=== PATIENT | male | born 1935 | race Caucasian/White ===

== ENCOUNTER → 2018-01-10 07:03 | Outpatient (CLI) | payer MEDICARE, SELFPAY ==
[2018-01-10 13:38] LABS: Basophils # 0.1 K/mm3 (0-0.2); Basophils % 0.6 % (0.1-2.0); Eosinophils # 0.2 K/mm3 (0.0-0.4); Eosinophils % 2.9 % (0.1-12.0); Hemoglobin 15.8 g/dL (14.1-18.0); Lymphocytes # 2.8 K/mm3 (0.7-4.5); Lymphocytes % 35.8 % (10-50); Mean Corpuscular HGB Conc 32.3 g/dL (31.8-35.4); Mean Corpuscular Hemoglobin 30.9 pg (27.0-31.2); Mean Corpuscular Volume 95.7 fl (80-94); Mean Platelet Volume 7.3 fl (7.4-10.4); Monocytes # 0.6 K/mm3 (0.1-1.0); Monocytes % 7.1 % (1.7-9.3); Neutrophils # 4.2 K/mm3 (1.8-7.8); Neutrophils % 53.6 % (37.0-80.0); Platelet Count 265 K/mm3 (142-424); Red Blood Count 5.12 M/mm3 (4.60-6.20); Red Cell Distribution Width 13.5 % (11.5-17.5); White Blood Count 7.8 K/mm3 (4.8-10.8)
[2018-01-10 13:52] LABS: Alanine Aminotransferase 28 U/L (12-78); Albumin Level 3.6 gm/dL (3.4-5.0); Albumin/Globulin Ratio 1.1 (1.1-1.8); Alkaline Phosphatase 85 U/L (46-116); Anion Gap 13.1 mEq/L (5-15); Aspartate Amino Transferase 13 U/L (15-37); Bilirubin,Total 0.5 mg/dL (0.2-1.0); Blood Urea Nitrogen 20 mg/dL (7-18); Calcium 8.5 mg/dL (8.5-10.1); Carbon Dioxide 26 mmol/L (21.0-32.0); Chloride 106 mmol/L (98-107); Chol/HDL Ratio 4.1 (1-3.5); Cholesterol 159 mg/dL (140-200); Creatinine,Serum 1.32 mg/dL (0.70-1.30); Estimated Glomerular Filt Rate 52 ml/min (>60); GFR (African American) 63 ML/MIN (>60); Globulin 3.3 gm/dl (1.3-3.2); Glucose 123 mg/dL (74-106); HDL Cholesterol 39 mg/dL (27-67); LDL Cholesterol 92 mg/dL (0-130); Potassium 4.1 mmoL/L (3.5-5.1); Prostate Specific Ag Screen 2.7 ng/mL (0.0-4.0); Sodium 141 mmol/L (136-145); Thyroid Stimulating Hormone 4.22 uIU/ml (0.358-3.740); Total Protein,Serum 6.9 gm/dL (6.4-8.2); Triglycerides 140 mg/dL (30-200); VLDL Cholesterol 28 mg/dL (0-40)
== END ==
PROVIDERS: PCP Internal Medicine Adolescent Medicine; Visit Provider Nurse Practitioner Family
DX: I25.10 Atherosclerotic heart disease of native coronary artery without angina pectoris (principal); E78.49 Other hyperlipidemia; N18.3 Chronic kidney disease, stage 3 (moderate); E03.8 Other specified hypothyroidism; Z12.5 Encounter for screening for malignant neoplasm of prostate
CPT/HCPCS: 36415; 80053; 80061; 84443; 85025; G0103

== ENCOUNTER → 2018-08-16 07:02 | Outpatient (CLI) | payer MEDICARE, SELFPAY ==
[2018-08-16 13:56] LABS: Anion Gap 13.1 mEq/L (5-15); Blood Urea Nitrogen 26 mg/dL (7-18); Calcium 8.8 mg/dL (8.5-10.1); Carbon Dioxide 28 mmol/L (21.0-32.0); Chloride 105 mmol/L (98-107); Estimated Glomerular Filt Rate 49 ml/min (>60); GFR (African American) 59 ML/MIN (>60); Glucose 114 mg/dL (74-106); Potassium 4.1 mmoL/L (3.5-5.1); Sodium 142 mmol/L (136-145)
== END ==
PROVIDERS: PCP Internal Medicine Adolescent Medicine; Visit Provider Internal Medicine Adolescent Medicine
DX: R79.89 Other specified abnormal findings of blood chemistry (principal)
CPT/HCPCS: 36415; 80048

== ENCOUNTER 2018-09-01 10:17 | Observation (INO) ==
--- NOTE | 2018-09-01 15:43 | Cardiology Report ---
PROCEDURE: 2-D M-mode and color Doppler study INDICATIONS FOR THE TEST: Chest pain COPD Heart Murmur Tobacco Smoking Palpitations+ Fatigue Syncope Edema Hypertension+Diabetes Mellitus Rheumatic Fever SOB [place] Obesity Hyperlipidemia+ Family History HD Additional History Arrhythmia noted on event monitor PATIENT INFORMATION HEIGHT: 68 WEIGHT: 203 GENDER: Male B/P: 118/76 2-D/M-MODE INTERPRETATION: 2-D MEASUREMENTS OBSERVED VALUES IN CMS Right Ventricular Dimension (RVDd) 2.2 Interventricular Septum (Thickness)(IVsd) 0.9 Left Ventricular Internal Dimensions(LVIDd) 5.0 Left Ventricular Posterior Wall (Thickness)(LVPWd) 0.9 Aortic Root 3.1 Aortic Cusp Separation 2.1 Left Atrial Dimensions (LAD) 3.5 2D 1. Left atrium is qualitatively mildly enlarged, left ventricle is normal size, mild concentric left ventricular hypertrophy, visually estimated ejection fraction 50% with no regional wall motion abnormality. Endocardial surfaces are poorly visualized. 2. The right atrium and right ventricle are normal size and contractility. 3. The aortic valve is thickened and calcified leaflet, display mobility. 4. The mitral and tricuspid valvular grossly normal. 5. The pulmonic valve is poorly present. 6. No significant pericardial effusion noted. DOPPLER INTERROGATION: Doppler interrogation of the aortic, mitral and tricuspid valvular presence of mild mitral and tricuspid regurgitation, tricuspid regurgitation jet velocity is inadequate for calculation of the right ventricular systolic pressure, grade 1 diastolic dysfunction seen with tissue Doppler evidence of raised left atrial pressure. CONCLUSION: 1. Mildly enlarged left atrium, normal left ventricular size, mild concentric left ventricular hypertrophy, visually estimated ejection fraction of 50% with no regional wall motion abnormality, grade 1 diastolic dysfunction seen with tissue Doppler evidence of raised left atrial pressure. 2. Thickened and calcified aortic valve without Doppler evidence of aortic stenosis aortic insufficiency. 3. Mild mitral and tricuspid regurgitation 4. No significant pericardial effusion noted.
--- NOTE | 2018-09-01 15:55 | Consult Report ---
History of Present Illness Consult date: 09/01/18 Requesting physician: Lloyd Villasenor Chief complaint: Palpitations Additional Medical History:: 1. Hypertension, treated for many years 2. Hyperlipidemia, treated for many years 3. Hypothyroidism, on replacement therapy 4. Coronary artery disease A. History of coronary stent placed in 1997 B. Last cardiac cath, [place], [place], 2010 without need for intervention 5. History of cataract surgery 6. Macular degeneration 7. GERD 8. Prostate hypertrophy 9. 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 Remote tobacco use, discontinued 1982 after [id number] history History of present illness: 82-year-old white male with history of coronary artery disease, hypertension and hyperlipidemia presented to PCPs office today for recurrent episodes of pa lpitations. Patient denies any chest pain, pressure or tightness associated with it but notes more of the palpitations since his atenolol was changed to metoprolol approximately a month ago. Patient denies any exertional shortness of breath or chest pain. He denies any recent nausea, vomiting or diaphoresis. Patient had an event monitor placed today which captured an episode of tachycardia at approximately 130-150 bpm and appears to be atrial flutter. Symptoms last for about 15 minutes with no near syncope or syncopal symptoms. Again he did not have any chest pain during this time. Due to the patient's history and similar symptoms for which he needed coronary stenting in the remote past, it was elected to admit him for further evaluation. Currently the patient is in sinus rhythm and comfortable. He did have an echocardiogram today which shows normal ejection fraction with only mild valvular disease and grade 1 diastolic dysfunction. Cardiology consulted for evaluation recommendations. [facility] History Medical History: Reports:: BPH, Coronary Artery Disease, Gastroesophageal Reflux Disease(GERD), Hyperlipidemia, Hypertension *Have you ever received a pneumonia vaccine?: Yes *Have you received a flu vaccine this season?: No - *Social History *Occupational Status:: retired *Travel in the last 8 weeks: Inside the [place] Family Hx:: No significant family history, Non-contributory Meds Home Medications Medication Instructions Recorded Confirmed Type Amlodipine Besylate [Amlodipine 5 mg PO DAILY 09/01/18 09/01/18 History 5mg tab] Aspirin [Aspirin 81mg EC Tab] 81 mg PO DAILY 09/01/18 09/01/18 History Atorvastatin Calcium [Atorvastatin 20 mg PO HS 09/01/18 09/01/18 History 20mg Tab] Levothyroxine Sodium 137 mcg PO DAILY 09/01/18 09/01/18 History [Levothyroxine 137mcg (0.137mg) Tab] [place]-3 Fatty Acids [Fish Oil] 300 mg PO DAILY 09/01/18 09/01/18 History Tamsulosin HCl 0.4 mg PO DAILY 09/01/18 09/02/18 History Metoprolol Tartrate 75 mg PO BID #60 tab 09/02/18 Rx Allergies Allergy/AdvReac Type Severity Reaction Status Date / Time No Known Allergies Allergy Verified 09/01/18 16:34 Review of Systems - Constitutional Denies anorexia, Denies malaise - *Cardiovascular Denies chest pain, Denies shortness of breath with activity - *Respiratory Denies cough, Denies shortness of breath with activity - *Gastrointestinal Denies abdominal pain, Denies loose stools, Denies nausea, Denies vomiting - *Genitourinary Denies blood in urine - *Musculoskeletal Denies joint pain, Denies back pain - Integumentary/Breasts Denies non-healing lesions - *Neurologic Denies dizziness, Denies frequent falls, Denies headache(s) Exam - *Routine HEENT Exam Head: Present: normocephalic Eye: Present: EOMI, PERRL ENT: Present: mucous membranes moist - *Routine Neck Exam Present: supple. Absent: JVD, carotid bruit - *Routine Respiratory Exam Present: CTA bilaterally. Absent: accessory muscle use, rales, rhonchi, wheezes - *Routine Cardiovascular Exam Present: RRR. Absent: murmur, gallop, rubs - *Routine Abdominal Exam Present: soft. Absent: tenderness, distended, guarding - *Routine Extremities Exam Absent: edema, calf tenderness - *Routine Neurological Exam Present: alert, oriented X3, moving all extremities Assessment and Plan (1) Atrial arrhythmia Status: Acute Category: Medical Code(s): I49.8 - Other specified cardiac arrhythmias (2) Palpitations Status: Acute Category: Medical Code(s): R00.2 - Palpitations (3) CAD (coronary artery disease), [place] coronary artery Status: Chronic Category: Medical Code(s): I25.10 - Atherosclerotic heart disease of [place] coronary artery without angina pectoris (4) Hypertension Status: Chronic Category: Medical Code(s): I10 - Essential (primary) hypertension (5) Hyperlipidemia Status: Chronic Category: Medical Code(s): E78.5 - Hyperlipidemia, unspecified (6) Hypothyroidism Status: Chronic Category: Medical Code(s): E03.9 - Hypothyroidism, unspecified (7) History of coronary artery stent placement Status: Chronic Category: Surgical Code(s): Z95.5 - Presence of coronary angioplasty implant and graft - Assessment and plan all Dx Assessment and Plan for all problems:: 1. Palpitations with atrial arrhythmia documented on event monitor (appears to be atrial flutter with 2-1 block). Recommend increasing the patient's metoprolol tartrate to 75 mg twice daily or even 100 mg twice daily if heart rate and blood pressure tolerate. Discontinue amlodipine to allow more beta-sheryl therapy. Monitor on telemetry. 2. In light of the patient's coronary artery disease and prior stenting with last cardiac cath in 2010, would recommend Lexiscan Myoview tomorrow. I do not think that the patient would be able to exercise adequately to achieve target heart rate due to beta-sheryl therapy. 3. Lab work to include mag level, thyroid level, BMP and CBC 4. Further recommendations to follow pending above results. Thank you for allowing us to participate in this patient's care.
--- NOTE | 2018-09-01 16:03 | History & Physical Report ---
*Admission Date: 09/01/18 *Chief complaint: palpitations, anxious *History of present illness: 82-year-old white male with history of coronary artery disease, hypertension and hyperlipidemia presented to PCPs office today for recurrent episodes of palpitations. Patient denies any chest pain, pressure or tightness associated with it but notes more of the palpitations since his atenolol was changed to metoprolol approximately a month ago. Patient denies any exertional shortness of breath or chest pain. He denies any recent nausea, vomiting or diaphoresis. Patient had an event monitor placed today which captured an episode of tachycardia at approximately 130-150 bpm and appears to be atrial flutter. S ymptoms last for about 15 minutes with no near syncope or syncopal symptoms. Again he did not have any chest pain during this time. Due to the patient's history and similar symptoms for which he needed coronary stenting in the remote past, it was elected to admit him for further evaluation. Currently the patient is in sinus rhythm and comfortable. He did have an echocardiogram today which shows normal ejection fraction with only mild valvular disease and grade 1 diastolic dysfunction. Cardiology consulted for evaluation recommendations. Above per cardiology ANGELA Castillo much appreciated [facility] History I have reviewed the patient's past medical history: Yes Medical History: Reports:: BPH, Coronary Artery Disease, Gastroesophageal Reflux Disease(GERD), Hyperlipidemia, Hypertension *Have you ever received a pneumonia vaccine?: Yes *Have you received a flu vaccine this season?: Yes - *Social History *Occupational Status:: previously employed *Travel in the last 8 weeks: None Family Hx:: Coronary Artery Disease, Stroke Review of Systems - Review of Systems Review of systems:: pertinent systems reviewed and negative unless documented below - *Neurologic Denies dizziness, Denies frequent falls, Denies headache(s) Meds Home Medications Medication Instructions Recorded Confirmed Type Amlodipine Besylate [Amlodipine 5 mg PO DAILY 09/01/18 09/01/18 History 5mg tab] Aspirin [Aspirin 81mg EC Tab] 81 mg PO DAILY 09/01/18 09/01/18 History Atorvastatin Calcium [Atorvastatin 20 mg PO HS 09/01/18 09/01/18 History 20mg Tab] Levothyroxine Sodium 137 mcg PO DAILY 09/01/18 09/01/18 History [Levothyroxine 137mcg (0.137mg) Tab] Metoprolol Succinate [Toprol XL 50 mg PO DAILY 09/01/18 09/01/18 History 50mg Tablet] [place]-3 Fatty Acids [Fish Oil] 300 mg PO DAILY 09/01/18 09/01/18 History Tamsulosin HCl 0.4 mg PO DAILY 09/01/18 09/01/18 History Exam Narrative: Alert and oriented x3. Rate and rhythm regular. Soft 1/6 holosystolic murmur. No carotid bruit. No LE edema. Lung sounds clear and equal. Abdomen soft and nontender. ENT exam unremarkable Assessment and Plan (1) Palpitations Current visit: Yes Status: Acute Category: Medical Code(s): R00.2 - Palpitations (2) CAD (coronary artery disease), [place] coronary artery Current visit: Yes Status: Acute Category: Medical Code(s): I25.10 - Atherosclerotic heart disease of [place] coronary artery without angina pectoris (3) Hypertension Current visit: Yes Status: Acute Category: Medical Code(s): I10 - Essential (primary) hypertension (4) Hyperlipidemia Current visit: Yes Status: Acute Category: Medical Code(s): E78.5 - Hyperlipidemia, unspecified (5) Hypothyroidism Current visit: Yes Status: Acute Category: Medical Code(s): E03.9 - Hypothyroidism, unspecified (6) History of coronary artery stent placement Current visit: Yes Status: Acute Category: Surgical Code(s): Z95.5 - Presence of coronary angioplasty implant and graft (7) Atrial arrhythmia Current visit: Yes Status: Acute Category: Medical Code(s): I49.8 - Other specified cardiac arrhythmias - Assessment and plan all Dx Assessment and Plan for all problems:: Admitted for serial enzymes, cardiology consult and further evaluation. Lovenox for anticoagulation at this point. Medication recommendations per cardiology, see note.
[2018-09-01 16:29] LABS: Basophils % 0.4 % (0.1-2.0); Mean Corpuscular Volume 91.6 fl (80-94); Mean Platelet Volume 7.9 fl (7.4-10.4); Red Cell Distribution Width 13.2 % (11.5-17.5)
[2018-09-01 16:39] LABS: Albumin Level 3.6 gm/dL (3.4-5.0); Anion Gap 12.9 mEq/L (5-15); Bilirubin,Total 0.8 mg/dL (0.2-1.0); Calcium 9.1 mg/dL (8.5-10.1); Globulin 3.7 gm/dl (1.3-3.2); Phosphorous 3.5 mg/dL (2.4-4.9); Total Protein,Serum 7.3 gm/dL (6.4-8.2)
[2018-09-01 16:57] LABS: Eosinophils % 0.6 % (0.1-12.0); Hematocrit 47.8 % (42.0-52.0); Hemoglobin 15.8 g/dL (14.1-18.0); Lymphocytes % 23.6 % (10-50); Mean Corpuscular HGB Conc 33.2 g/dL (31.8-35.4); Monocytes % 4.9 % (1.7-9.3); Neutrophils % 70.4 % (37.0-80.0); Platelet Count 292 K/mm3 (142-424); Red Blood Count 5.22 M/mm3 (4.60-6.20)
[2018-09-01 16:58] LABS: Eosinophils # 0.1 K/mm3 (0.0-0.4); Lymphocytes # 2.1 K/mm3 (0.7-4.5); Monocytes # 0.5 K/mm3 (0.1-1.0); Neutrophils # 6.4 K/mm3 (1.8-7.8)
--- NOTE | 2018-09-02 08:12 | Pharmacy Consult Notes ---
[facility] Pharm[facility] VTE Monitoring - Patient Demographics Admission date: 09/01/18 Report Date: 09/02/18 Time: 08:11 Allergies/Adverse Reactions: Patient Allergies No Known Allergies Allergy (Verified 09/01/18 16:34) Height: 1.73 m Weight: 91.342 kg Patient Problems: Current Active Problems (Updated 09/01/18 @ 16:02 by ANGELA Duncan) Palpitations (Acute) CAD (coronary artery disease), [place] coronary artery (Acute) Hypertension (Acute) Hyperlipidemia (Acute) Hypothyroidism (Acute) History of coronary artery stent placement (Acute) Atrial arrhythmia (Acute) - VTE Risk Labs: VTE Related Lab Results Hgb 15.8 g/dL (14.1-18.0) 09/01/18 16:10 Hct 47.8 % (42.0-52.0) 09/01/18 16:10 Plt Count 292 K/mm3 (142-424) 09/01/18 16:10 BUN 21 mg/dL (7-18) H 09/01/18 16:10 Creatinine 1.27 mg/dL (0.70-1.30) 09/01/18 16:10 Estimated Creat Clear 59 mL/min (50-200) 09/01/18 16:10 VTE Score: 2 - Prophylaxis VTE Prophylaxis Ordered?: Yes Types of VTE Prophylaxis: Pharmacological Pharmacologic Type: Enoxaparin
--- NOTE | 2018-09-02 10:40 | Progress Note ---
Subjective Date: 09/02/18 Time: 08:30 Principal diagnosis: palpitations Interval history: This is an 82-year-old white male who presented to the emergency department with palpitations. He states that he has been having several episodes of this but yesterday morning was his most severe and longest episode. He states that the palpitations have resolved at this point. He denies any chest pain or pressure. He denies any shortness of breath or edema. He denies any fever chills nausea vomiting diarrhea PND or orthopnea. The patient does have a history of coronary disease with angioplasty. He has undergone a [employer] Energiean Myoview stress testing this morning to rule out ischemia as his atrial flutter could be ischemically mediated. Exam Vital signs and Labs for Last 24 Hours: Temp Pulse Resp BP Pulse Ox 98.2 F 71 26 H 137/81 93 L 09/02/18 07:32 09/02/18 07:32 09/02/18 07:32 09/02/18 07:32 09/02/18 08:00 Laboratory Results - last 24 hr 09/01/18 16:10: TSH 0.39 D 09/01/18 16:10: WBC 9.0, RBC 5.22, Hgb 15.8, Hct 47.8, MCV 91.6, MCH 30.4, MCHC 33.2, RDW 13.2, Plt Count 292, MPV 7.9, Neut % (Auto) 70.4, Lymph % (Auto) 23.6, [place] % (Auto) 4.9, Eos % (Auto) 0.6, Baso % (Auto) 0.4, Neut # (Auto) 6.4, Lymph # (Auto) 2.1, [place] # (Auto) 0.5, Eos # (Auto) 0.1, Baso # (Auto) 0.0, Total Counted Cancelled, Neutrophils % (Manual) Cancelled, Band Neutrophils % Cancelled, Lymphocytes % (Manual) Cancelled, Atypical Lymphs % Cancelled, Monocytes % (Manual) Cancelled, Eosinophils % (Manual) Cancelled, Basophils % (Manual) Cancelled, Metamyelocytes % Cancelled, Myelocytes % Cancelled, Promyelocytes % Cancelled, Blast Cells % Cancelled, Nucleated RBCs Cancelled, Differential Comment Cancelled, Hypersegmented Neuts Cancelled, Toxic Granulation Cancelled, Toxic Vacuolation Cancelled, Dohle Bodies Cancelled, Omar Rods Cancelled, Platelet Estimate Cancelled, Giant Platelets Cancelled, RBC Morphology Cancelled, Polychromasia Cancelled, Hypochromasia Cancelled, Poikilocytosis Cancelled, Basophilic Stippling Cancelled, Anisocytosis Cancelled, Microcytosis Cancelled, Macrocytosis Cancelled, Spherocytes Cancelled, Pappenheimer Bodies Cancelled, Sickle Cells Cancelled, Target Cells Cancelled, Tear Drop Cells Cancelled, Ovalocytes Cancelled, Stomatocytes Cancelled, Helmet Cells Cancelled, [place] Bodies Cancelled, [place] Rings Cancelled, [place] Cells Cancelled, Acanthocytes (Spur) Cancelled, Rouleaux Cancelled, Schistocytes Cancelled 09/01/18 16:10: Magnesium 1.8, Troponin I < 0.02 09/01/18 16:10: Sodium 139, Potassium 3.9, Chloride 105, Carbon Dioxide 25, Anion Gap 12.9, BUN 21 H, Creatinine 1.27, Estimated Creat Clear 59, Estimated GFR 54 L, Est GFR ( Amer) 66, Glucose 96, Calcium 9.1, Phosphorus 3.5, Total Bilirubin 0.8, AST 11 L, ALT 25, Alkaline Phosphatase 83, Total Protein 7.3, Albumin 3.6, Globulin 3.7 H, Albumin/Globulin Ratio 1.0 L 09/01/18 20:45: Troponin I 0.02 09/02/18 00:15: Troponin I 0.02 I & O for Last 24 hours: Intake & Output 08/30/18 08/31/18 09/01/18 09/02/18 23:59 23:59 23:59 23:59 Intake Total 360 / 360 Balance 360 / 360 Weight 203 lb 3 oz 201 lb 6 oz Narrative: His EKG is sinus rhythm this morning - *Routine HEENT Exam Head: Present: normocephalic, atraumatic Eye: Present: EOMI, PERRL ENT: Present: mucous membranes moist - *Routine Neck Exam Present: supple, full ROM, normal carotid upstroke. Absent: JVD, carotid bruit, lymphadenopathy - *Routine Respiratory Exam Present: CTA bilaterally - *Routine Cardiovascular Exam Present: RRR, Normal S1, Normal S2. Absent: murmur - *Routine Abdominal Exam Present: soft, normoactive bowel sounds. Absent: tenderness, distended - *Routine Extremities Exam Present: full ROM, pulses intact, normal capillary refill. Absent: cyanosis, clubbing, edema - *Routine Skin Exam Present: intact, warm. Absent: erythema, rash - *Routine Neurological Exam Present: alert, oriented X3, CN II-XII intact. Absent: sensory deficit, motor deficit - Detailed Eye Exam Eyelids: Left normal inspection Progress Note: A&P (1) Atrial arrhythmia Status: Acute Current Visit: Yes (2) Palpitations Status: Acute Current Visit: Yes (3) CAD (coronary artery disease), [place] coronary artery Status: Acute Current Visit: Yes (4) Hypertension Status: Acute Current Visit: Yes (5) Hyperlipidemia Status: Acute Current Visit: Yes (6) Hypothyroidism Status: Acute Current Visit: Yes (7) History of coronary artery stent placement Status: Acute Current Visit: Yes Assessment and Plan for All Diagnoses:: Plan: 1. The patient had palpitations with an atrial arrhythmia which appeared to be atrial flutter. The patient's metoprolol was increased and he is now in sinus rhythm this morning. 2. The patient does have a history of coronary artery disease with angioplasty. We want to make sure that his atrial arrhythmia is not ischemically mediated. He did undergo a Lexiscan Myoview stress test this morning. The results are still pending at this time. 3. Urinary artery disease is present 4. His blood pressure is well controlled. 5. His LDL goal is less than 55. We will get a lipid panel. 6. Further recommendations will be made pending the patient's response to treatment and the results of his Lexiscan Myoview stress test. Thank you for the opportunity to help participate in the care of this patient.
--- NOTE | 2018-09-02 13:26 | Discharge Summary ---
General - General Admission date:: 09/01/18 Discharge date: 09/02/18 HPI HPI: 82-year-old white male with history of coronary artery disease, hypertension and hyperlipidemia presented to PCPs office today for recurrent episodes of palpitations. Patient denies any chest pain, pressure or tightness associated with it but notes more of the palpitations since his atenolol was changed to metoprolol approximately a month ago. Patient denies any exertional shortness of breath or chest pain. He denies any recent nausea, vomiting or diaphoresis. Patient had an event monitor placed today which captured an episode of tachycardia at approximately 130-150 bpm and appears to be atrial flutter. Symptoms last for about 15 minutes with no near syncope or syncopal symptoms. Again he did not have any chest pain during this time. Due to the patient's history and similar symptoms for which he needed coronary stenting in the remote past, it was elected to admit him for further evaluation. Currently the patient is in sinus rhythm and comfortable. He did have an echocardiogram today which shows normal ejection fraction with only mild valvular disease and grade 1 diastolic dysfunction. Cardiology consulted for evaluation recommendations. Above per cardiology ANGELA Castillo much appreciated Hospital Course Hospital Course: Patient was admitted, ruled out for myocardial infarction, admitted overnight for telemetry where he was noted to have runs of PACs and very short-term paroxysmal A. fib. Spontaneously converted every time. Subjected to Lexiscan perfusion testing today. This was unremarkable with n ormal ejection fraction and normal chamber size per echocardiogram. Plan will be to discharge home today with higher dose immediate release beta- blockade, continue aspirin therapy, follow-up in our office in 1 week. Objective Vital signs: Temp Pulse Resp BP Pulse Ox 98.2 F 73 28 H 141/87 H 97 09/02/18 11:46 09/02/18 11:46 09/02/18 11:46 09/02/18 11:46 09/02/18 11:46 no acute distress - *Routine HEENT Exam Head: Present: normocephalic, atraumatic Eye: Present: EOMI, PERRL - *Routine Neck Exam Absent: JVD - Routine Chest/Breast/Axilla Exam Chest wall: Absent: tenderness - *Routine Respiratory Exam Present: CTA bilaterally. Absent: prolonged expiratory phase, rales - *Routine Cardiovascular Exam Present: RRR, Normal S1, Normal S2 - *Routine Abdominal Exam Present: soft, normoactive bowel sounds - *Routine Neurological Exam Present: alert, oriented X3 Results Labs on day of discharge: Labs from last 24 hours 09/02/18 09/01/18 09/01/18 00:15 20:45 16:10 WBC RBC Hgb Hct MCV MCH MCHC RDW Plt Count MPV Neut % (Auto) Lymph % (Auto) [place] % (Auto) Eos % (Auto) Baso % (Auto) Neut # (Auto) Lymph # (Auto) [place] # (Auto) Eos # (Auto) Baso # (Auto) Total Counted Neutrophils % (Manual) Band Neutrophils % Lymphocytes % (Manual) Atypical Lymphs % Monocytes % (Manual) Eosinophils % (Manual) Basophils % (Manual) Metamyelocytes % Myelocytes % Promyelocytes % Blast Cells % Nucleated RBCs Differential Comment Hypersegmented Neuts Toxic Granulation Toxic Vacuolation Dohle Bodies Omar Rods Platelet Estimate Giant Platelets RBC Morphology Polychromasia Hypochromasia Poikilocytosis Basophilic Stippling Anisocytosis Microcytosis Macrocytosis Spherocytes Pappenheimer Bodies Sickle Cells Target Cells Tear Drop Cells Ovalocytes Stomatocytes Helmet Cells [place] Bodies [place] Rings Heather Cells Acanthocytes (Spur) Rouleaux Schistocytes Sodium 139 Potassium 3.9 Chloride 105 Carbon Dioxide 25 Anion Gap 12.9 BUN 21 H Creatinine 1.27 Estimated Creat Clear 59 Estimated GFR 54 L Est GFR ( Amer) 66 Glucose 96 Calcium 9.1 Phosphorus 3.5 Magnesium Total Bilirubin 0.8 AST 11 L ALT 25 Alkaline Phosphatase 83 Troponin I 0.02 0.02 Total Protein 7.3 Albumin 3.6 Globulin 3.7 H Albumin/Globulin Ratio 1.0 L TSH 09/01/18 09/01/18 09/01/18 16:10 16:10 16:10 WBC 9.0 RBC 5.22 Hgb 15.8 Hct 47.8 MCV 91.6 MCH 30.4 MCHC 33.2 RDW 13.2 Plt Count 292 MPV 7.9 Neut % (Auto) 70.4 Lymph % (Auto) 23.6 [place] % (Auto) 4.9 Eos % (Auto) 0.6 Baso % (Auto) 0.4 Neut # (Auto) 6.4 Lymph # (Auto) 2.1 [place] # (Auto) 0.5 Eos # (Auto) 0.1 Baso # (Auto) 0.0 Total Counted Cancelled Neutrophils % (Manual) Cancelled Band Neutrophils % Cancelled Lymphocytes % (Manual) Cancelled Atypical Lymphs % Cancelled Monocytes % (Manual) Cancelled Eosinophils % (Manual) Cancelled Basophils % (Manual) Cancelled Metamyelocytes % Cancelled Myelocytes % Cancelled Promyelocytes % Cancelled Blast Cells % Cancelled Nucleated RBCs Cancelled Differential Comment Cancelled Hypersegmented Neuts Cancelled Toxic Granulation Cancelled Toxic Vacuolation Cancelled Dohle Bodies Cancelled Omar Rods Cancelled Platelet Estimate Cancelled Giant Platelets Cancelled RBC Morphology Cancelled Polychromasia Cancelled Hypochromasia Cancelled Poikilocytosis Cancelled Basophilic Stippling Cancelled Anisocytosis Cancelled Microcytosis Cancelled Macrocytosis Cancelled Spherocytes Cancelled Pappenheimer Bodies Cancelled Sickle Cells Cancelled Target Cells Cancelled Tear Drop Cells Cancelled Ovalocytes Cancelled Stomatocytes Cancelled Helmet Cells Cancelled [place] Bodies Cancelled [place] Rings Cancelled Heather Cells Cancelled Acanthocytes (Spur) Cancelled Rouleaux Cancelled Schistocytes Cancelled Sodium Potassium Chloride Carbon Dioxide Anion Gap BUN Creatinine Estimated Creat Clear Estimated GFR Est GFR ( Amer) Glucose Calcium Phosphorus Magnesium 1.8 Total Bilirubin AST ALT Alkaline Phosphatase Troponin I < 0.02 Total Protein Albumin Globulin Albumin/Globulin Ratio TSH 0.39 D DS: Diagnosis - Discharge Diagnosis (1) Atrial arrhythmia Status: Acute (2) Palpitations Status: Acute (3) CAD (coronary artery disease), [place] coronary artery Status: Chronic (4) Hypertension Status: Chronic (5) Hyperlipidemia Status: Chronic (6) Hypothyroidism Status: Chronic (7) History of coronary artery stent placement Status: Chronic Discharge Plan - Patient Discharge Instructions ACTIVITY: Continue current activity DIET: continue same diet Patient Instructions: Heart-Healthy Diet, DI for Palpitations - Follow up Plan Follow up with: Pamela Moya APRN [Nurse Practitioner] - 09/08/18 Disposition: Home, Self-[facility] Medications: Home Medications Medication Instructions Recorded Confirmed Type Amlodipine Besylate [Amlodipine 5 mg PO DAILY 09/01/18 09/01/18 History 5mg tab] Aspirin [Aspirin 81mg EC Tab] 81 mg PO DAILY 09/01/18 09/01/18 History Atorvastatin Calcium [Atorvastatin 20 mg PO HS 09/01/18 09/01/18 History 20mg Tab] Levothyroxine Sodium 137 mcg PO DAILY 09/01/18 09/01/18 History [Levothyroxine 137mcg (0.137mg) Tab] Metoprolol Succinate [Toprol XL 50 mg PO DAILY 09/01/18 09/01/18 History 50mg Tablet] [place]-3 Fatty Acids [Fish Oil] 300 mg PO DAILY 09/01/18 09/01/18 History Tamsulosin HCl 0.4 mg PO DAILY 09/01/18 09/02/18 History Metoprolol Tartrate 75 mg PO BID #60 tab 09/02/18 Rx Prescriptions/Medication Reconciliation: New Metoprolol Tartrate 75 mg PO BID #60 tab Continued Tamsulosin HCl 0.4 mg PO DAILY [place]-3 Fatty Acids [Fish Oil] 300 mg PO DAILY Amlodipine Besylate [Amlodipine 5mg tab] 5 mg PO DAILY Levothyroxine Sodium [Levothyroxine 137mcg (0.137mg) Tab] 137 mcg PO DAILY Atorvastatin Calcium [Atorvastatin 20mg Tab] 20 mg PO HS Aspirin [Aspirin 81mg EC Tab] 81 mg PO DAILY Discontinued Metoprolol Succinate [Toprol XL 50mg Tablet] 50 mg PO DAILY
== END 2018-09-02 14:23 | disposition home or self-care (01) ==
LOC: 2ND 10:17 → RT 10:17 → 2ND 14:54
PROVIDERS: ADMIT Internal Medicine Adolescent Medicine; ATTEND Nurse Practitioner Family
CPT/HCPCS: 36415; 78452; 80053; 83735; 84100; 84443; 84484; 85025; 93005; 93017; 93270; 93306; A9502; G0378; J2785

== ENCOUNTER → 2019-04-05 07:13 | Outpatient (CLI) | payer MEDICARE, SELFPAY ==
[2019-04-05 13:45] LABS: Alanine Aminotransferase 16 U/L (12-78); Albumin Level 3.8 g/dl (3.5-5.0); Albumin/Globulin Ratio 1.3 (1.1-1.8); Alkaline Phosphatase 83 U/L (38-126); Anion Gap 11.9 mEq/L (5-15); Aspartate Amino Transferase 21 U/L (17-59); Bilirubin,Total 0.5 mg/dl (0.2-1.3); Blood Urea Nitrogen 19 mg/dl (9-20); Carbon Dioxide 27 mmol/L (22.0-30.0); Chloride 104 mmol/L (98-107); Chol/HDL Ratio 5.1 (1-3.5); Cholesterol 133 mg/dl (140-200); Estimated Glomerular Filt Rate 64 ml/min (>60); GFR (African American) 78 ML/MIN (>60); Globulin 2.9 g/dL (1.3-3.2); Glucose 111 mg/dl (74-100); HDL Cholesterol 26 mg/dl (40-60); Potassium 3.9 mmoL/L (3.5-5.1); Sodium 139 mmol/L (136-145); Total Protein,Serum 6.7 g/dl (6.3-8.2); Triglycerides 180 mg/dl (30-150); VLDL Cholesterol 36 mg/dL (0-40)
[2019-04-05 13:56] LABS: Direct LDL Cholesterol 83.96 mg/dL (100-129)
[2019-04-05 14:16] LABS: Thyroid Stimulating Hormone 0.71 uIU/mL (0.465-4.68)
== END ==
PROVIDERS: Visit Provider Nurse Practitioner Family
DX: Z00.00 Encounter for general adult medical examination without abnormal findings (principal); E78.5 Hyperlipidemia, unspecified; E03.9 Hypothyroidism, unspecified; I10 Essential (primary) hypertension
CPT/HCPCS: 36415; 80053; 80061; 84443

== ENCOUNTER → 2019-09-18 07:03 | Outpatient (CLI) | payer MEDICARE, SELFPAY ==
[2019-09-18 15:16] LABS: Alanine Aminotransferase 20 U/L (12-78); Albumin Level 3.9 g/dl (3.5-5.0); Albumin/Globulin Ratio 1.3 (1.1-1.8); Alkaline Phosphatase 111 U/L (38-126); Anion Gap 14.3 mEq/L (5-15); Aspartate Amino Transferase 23 U/L (17-59); Bilirubin,Total 0.9 mg/dl (0.2-1.3); Blood Urea Nitrogen 21 mg/dl (9-20); Calcium 9.9 mg/dl (8.4-10.2); Carbon Dioxide 26 mmol/L (22.0-30.0); Chloride 103 mmol/L (98-107); Chol/HDL Ratio 3.5 (1-3.5); Cholesterol 150 mg/dl (140-200); Estimated Glomerular Filt Rate 58 ml/min (>60); GFR (African American) 70 ML/MIN (>60); Globulin 3.1 g/dL (1.3-3.2); Glucose 131 mg/dl (74-100); HDL Cholesterol 43 mg/dl (40-60); Potassium 4.3 mmoL/L (3.5-5.1); Sodium 139 mmol/L (136-145); Triglycerides 144 mg/dl (30-150); VLDL Cholesterol 29 mg/dL (0-40)
[2019-09-18 15:27] LABS: Direct LDL Cholesterol 96.15 mg/dL (100-129)
[2019-09-18 15:35] LABS: Triiodothryronine (T3) Uptake 38 % (23.5-40.5)
[2019-09-18 15:36] LABS: Free Thyroxine Index 4.3 ug/dL (5.93-13.13); T4 (Thyroxine) 11.3 ug/dl (5.53-11.0)
[2019-09-18 15:49] LABS: Thyroid Stimulating Hormone 0.12 uIU/mL (0.465-4.68)
== END ==
PROVIDERS: Visit Provider Nurse Practitioner Family
DX: E03.9 Hypothyroidism, unspecified (principal); I10 Essential (primary) hypertension; R73.9 Hyperglycemia, unspecified
CPT/HCPCS: 36415; 80053; 80061; 83036; 84436; 84443; 84479

== ENCOUNTER → 2020-06-27 17:27 | Outpatient (CLI) | payer MEDICARE, SELFPAY ==
[2020-06-27 18:18] LABS: Chloride 106 mmol/L (98-107); Potassium 4.2 mmoL/L (3.5-5.1); Sodium 139 mmol/L (136-145)
[2020-06-27 18:20] LABS: Blood Urea Nitrogen 24 mg/dl (9-20); Estimated Glomerular Filt Rate 58 ml/min (>60); GFR (African American) 70 ML/MIN (>60)
[2020-06-27 18:21] LABS: Alanine Aminotransferase 19 U/L (12-78); Albumin Level 4.3 g/dl (3.5-5.0); Albumin/Globulin Ratio 1.5 (1.1-1.8); Alkaline Phosphatase 99 U/L (38-126); Anion Gap 15.2 mEq/L (5-15); Aspartate Amino Transferase 25 U/L (17-59); Bilirubin,Total 1.1 mg/dl (0.2-1.3); Carbon Dioxide 22 mmol/L (22.0-30.0); Cholesterol 150 mg/dl (140-200); Globulin 2.9 g/dL (1.3-3.2); Total Protein,Serum 7.2 g/dl (6.3-8.2); Triglycerides 206 mg/dl (30-150); VLDL Cholesterol 41 mg/dL (0-40)
[2020-06-27 18:22] LABS: Calcium 9.5 mg/dl (8.4-10.2); Chol/HDL Ratio 4.3 (1-3.5); Glucose 117 mg/dl (74-100); HDL Cholesterol 35 mg/dl (40-60)
[2020-06-27 18:33] LABS: Direct LDL Cholesterol 81.15 mg/dL (100-129)
[2020-06-27 18:53] LABS: Thyroid Stimulating Hormone 3.49 uIU/mL (0.465-4.68)
== END ==
PROVIDERS: Visit Provider Nurse Practitioner Family
DX: I10 Essential (primary) hypertension (principal); E78.5 Hyperlipidemia, unspecified; E03.9 Hypothyroidism, unspecified
CPT/HCPCS: 80053; 80061; 84443

== ENCOUNTER → 2020-10-29 08:01 | Outpatient (CLI) | payer MEDICARE, SELFPAY ==
[2020-10-29 08:51] LABS: Basophils # 0.1 K/mm3 (0-0.2); Basophils % 1.3 % (0.1-2.0); Eosinophils # 0.2 K/mm3 (0.0-0.4); Eosinophils % 1.6 % (0.1-12.0); Hematocrit 51.5 % (42.0-52.0); Hemoglobin 16.8 g/dL (14.1-18.0); Lymphocytes # 2.6 K/mm3 (0.7-4.5); Mean Corpuscular HGB Conc 32.6 g/dL (31.8-35.4); Mean Corpuscular Hemoglobin 32.8 pg (27.0-31.2); Mean Corpuscular Volume 100.7 fl (80-94); Monocytes # 0.6 K/mm3 (0.1-1.0); Monocytes % 6.4 % (1.7-9.3); Neutrophils # 5.5 K/mm3 (1.8-7.8); Neutrophils % 61.7 % (37.0-80.0); Platelet Count 334 K/mm3 (142-424); Red Blood Count 5.11 M/mm3 (4.60-6.20); Red Cell Distribution Width 13.6 % (11.5-17.5); White Blood Count 8.9 K/mm3 (4.8-10.8)
[2020-10-29 08:56] LABS: Chloride 106 mmol/L (98-107); Potassium 4.5 mmoL/L (3.5-5.1); Sodium 142 mmol/L (136-145)
[2020-10-29 08:58] LABS: Alanine Aminotransferase 21 U/L (12-78); Aspartate Amino Transferase 55 U/L (17-59); Bilirubin,Total 1.2 mg/dl (0.2-1.3); Blood Urea Nitrogen 15 mg/dl (9-20); Estimated Glomerular Filt Rate 58 ml/min (>60); GFR (African American) 70 ML/MIN (>60)
[2020-10-29 08:59] LABS: Albumin Level 4.1 g/dl (3.5-5.0); Albumin/Globulin Ratio 1.4 (1.1-1.8); Alkaline Phosphatase 85 U/L (38-126); Anion Gap 16.5 mEq/L (5-15); Calcium 9.1 mg/dl (8.4-10.2); Carbon Dioxide 24 mmol/L (22.0-30.0); Globulin 2.9 g/dL (1.3-3.2); Glucose 110 mg/dl (74-100)
[2020-10-29 09:29] LABS: Thyroid Stimulating Hormone 2.49 uIU/mL (0.465-4.68)
== END ==
LOC: LAB 08:02 → LAB.DROPOF 08:03
PROVIDERS: Visit Provider Internal Medicine Adolescent Medicine
DX: E03.9 Hypothyroidism, unspecified (principal); I10 Essential (primary) hypertension
CPT/HCPCS: 80053; 84443; 85025

== ENCOUNTER 2023-10-14 08:03 | Inpatient (IN) | payer MEDICARE, SELFPAY ==
[2023-10-14] VITALS (16 sets, daily range): BP systolic 94–140; BP diastolic 66–99; PULSE 62–140; RESP 10–22; TEMP 36.5–37.1; O2SAT 95–98; BMI 29.6; BMI 29.9
--- NOTE | 2023-10-14 08:10 | ECG_ITS ---
APPROVED REPORT Exam: Resting ECG HR:136 bpm ECG Measurements Heart Rate 136 AXES QRSd 178 QRS 159 QT 347 T -18 QTc 427 Conclusion A flutter RVR RIGHT AXIS DEVIATION [QRS AXIS > 100] RIGHT BUNDLE BRANCH BLOCK [120+ ms QRS DURATION, UPRIGHT V1, 40+ ms S IN I/aVL/V4/V5/V6] Electronically signed by : KWESI NGUYEN, 10/14/2023 15:43:37
--- NOTE | 2023-10-14 08:20 | CT_ITS ---
FINAL REPORT TECHNIQUE: Postcontrast axial images of the chest were performed in a CTA protocol. This study was performed with techniques to keep radiation doses as low as reasonably achievable, (ALARA). Individualized dose reduction technique using automated exposure control or adjustment of mA and/or kV according to the patient's size were employed. CLINICAL HISTORY: soa, palpitations, syncope FINDINGS: The heart is normal in size. No adenopathy is identified. No pleural or pericardial effusion is identified. The thoracic aorta is normal in caliber with no focal aneurysm or dissection identified. There is no filling defect to suggest pulmonary embolism. There is mild atelectasis. A calcified granuloma is noted in the left lung. No lung infiltrate or mass is identified. The images of the upper abdomen are unremarkable. IMPRESSION: No evidence for PE on this exam. Reviewed, Interpreted and Dictated by Uriel Mason III, MD Transcribed by Kaia David Authenticated and [facility]
--- NOTE | 2023-10-14 08:20 | XR_ITS ---
FINAL REPORT TECHNIQUE: Single view chest CLINICAL HISTORY: palpitations, anxiety FINDINGS: A single view of the chest was obtained. The heart and mediastinum are within normal limits. There is mild atelectasis at the lung bases. The lungs are otherwise clear. There is no pneumothorax. Osseous structures are unremarkable. IMPRESSION: Atelectasis at the lung bases. Reviewed, Interpreted and Dictated by Uriel Mason III, MD Transcribed by Kaia David Authenticated and [facility]
--- NOTE | 2023-10-14 08:29 | [facility].EDGENADL ---
Discharge Plan Disposition Chief Complaint: Arrhythmia/Palpitations Prescriptions Prescriptions: No Action levothyroxine 137 MCG tablet 137 mcg PO DAILY atorvastatin 20 MG tablet 20 mg PO HS amlodipine 5 MG tablet 5 mg PO DAILY tamsulosin 0.4 MG capsule 0.4 mg PO DAILY omega-3 fatty acids 300 MG capsule 300 mg PO DAILY aspirin 81 MG tablet,delayed release (DR/EC) 81 mg PO DAILY metoprolol tartrate 75 MG tablet 75 mg PO BID Qty: 60 0RF Referrals Follow up/Referrals: Merrill Mendoza MD [Primary Care Provider] - See instructions Print Language Print Language: Chinese Discharge ED Provider: Beck Rehman General Adult HPI General Chief complaint: Arrhythmia/Palpitations Stated complaint: light headed, flighty elevated pulse, shakes Time Seen by Provider: 10/14/23 08:19 Mode of Arrival: Ambulatory Source of Information: Patient Limitations: No Limitations Description of Symptoms (Recalled from ER Triage Doc. by RN): pt c/o a racing heart, feeling flighty, nervousness and low BP. pt states this has been ongoing since yesterday. 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 pt denies any pain or N/V/D. pt states he has a hx of CHF and 2 cardiac stents in 1987 when he had a complete LAD blockage. Related Data Home Medications ?Medication ?Instructions ?Recorded ?Confirmed amlodipine 5 mg tablet 5 mg PO DAILY Hypertension 09/01/18 09/01/18 aspirin 81 mg tablet,delayed 81 mg PO DAILY HEART HEALTH 09/01/18 09/01/18 release atorvastatin 20 mg tablet 20 mg PO HS Cholesterol 09/01/18 09/01/18 levothyroxine 137 mcg tablet 137 mcg PO DAILY thyroid 09/01/18 09/01/18 omega-3 fatty acids 300 mg capsule 300 mg PO DAILY Supplement 09/01/18 09/01/18 tamsulosin 0.4 mg capsule 0.4 mg PO DAILY prostate 09/01/18 09/02/18 Previous Rx's ?Medication ?Instructions ?Recorded metoprolol tartrate 75 mg tablet 75 mg PO BID #60 tabs 09/02/18 Allergies Allergy/AdvReac Type Severity Reaction Status Date / Time No Known Allergies Allergy Verified 10/14/23 08:29 [facility] Disclaimer: The information contained in this section may have been updated after the patient was seen, as this information can be updated by other users. Social History Smoking Status: Never smoker second hand exposure: No alcohol intake: current alcohol intake frequency: holidays/special occasions only current occupational status: retired Travel in the last 8 weeks: Inside the [place] household members: spouse housing: house caffeine: No Medical Decision Making Vital Signs: 10/14/23 08:18 Temperature 98.7 F Temperature Source Oral Pulse Rate [Left] 137 H Respiratory Rate 16 Blood Pressure [Right Arm] 122/88 Blood Pressure Mean [Right Arm] 99 Blood Pressure Source [Right Arm] Automatic Cuff Blood Pressure Position [Right Arm] Sitting 02 Sat by Pulse Oximetry 97 Oxygen Delivery Method Room Air Orders (Tests/Meds): ORDERS Category Date Time Status CT angio chest - dissection Stat Cat Scan 10/14/23 08:20 Ordered XR chest portable Stat Exams 10/14/23 08:20 Ordered Complete Blood Count Auto Diff Stat Lab 10/14/23 08:15 Received Comprehensive Metabolic Panel Stat Lab 10/14/23 08:15 Received Hemoglobin A1C Stat Lab 10/14/23 08:15 Received Lactic Acid Stat Lab 10/14/23 08:21 Ordered Magnesium Stat Lab 10/14/23 08:15 Received NT Pro Brain Natriuretic Pep. Stat Lab 10/14/23 08:15 Received PT INR [Prothrombin Time INR] Stat Lab 10/14/23 08:15 Received PTT [Activated Partial Thrombo Time] Stat Lab 10/14/23 08:15 Received T4 (Thyroxine) Stat Lab 10/14/23 08:15 Received TSH [Thyroid Stimulating Hormone] Stat Lab 10/14/23 08:15 Received Troponin I Q3H Lab 10/14/23 11:30 Ordered Troponin I Q3H Lab 10/14/23 14:30 Ordered Troponin I Stat Lab 10/14/23 08:15 Received
[2023-10-14 08:32] LABS: Basophils # 0.1 K/mm3 (0-0.2); Basophils % 0.5 % (0.1-2.0); Eosinophils # 0.1 K/mm3 (0.0-0.4); Eosinophils % 0.7 % (0.1-12.0); Hematocrit 52.9 % (42.0-52.0); Hemoglobin 16.2 g/dL (14.1-18.0); Lymphocytes # 2.4 K/mm3 (0.7-4.5); Lymphocytes % 24.9 % (10-50); Mean Corpuscular HGB Conc 30.5 g/dL (31.8-35.4); Mean Corpuscular Hemoglobin 31.1 pg (27.0-31.2); Mean Corpuscular Volume 101.9 fl (80-94); Mean Platelet Volume 7.9 fl (7.4-10.4); Monocytes # 0.6 K/mm3 (0.1-1.0); Monocytes % 6.2 % (1.7-9.3); Neutrophils # 6.5 K/mm3 (1.8-7.8); Neutrophils % 67.7 % (37.0-80.0); Platelet Count 268 K/mm3 (142-424); Red Cell Distribution Width 14.6 % (11.5-17.5); White Blood Count 9.6 K/mm3 (4.8-10.8)
--- NOTE | 2023-10-14 08:33 | [facility].EDCP ---
Discharge Plan Disposition Patient Disposition: Admitted Chief Complaint: Arrhythmia/Palpitations Prescriptions Prescriptions: No Action levothyroxine 137 MCG tablet 137 mcg PO DAILY atorvastatin 20 MG tablet 20 mg PO HS amlodipine 5 MG tablet 5 mg PO DAILY tamsulosin 0.4 MG capsule 0.4 mg PO DAILY omega-3 fatty acids 300 MG capsule 300 mg PO DAILY aspirin 81 MG tablet,delayed release (DR/EC) 81 mg PO DAILY metoprolol tartrate 75 MG tablet 75 mg PO BID Qty: 60 0RF Referrals Follow up/Referrals: Merrill Mendoza MD [Primary Care Provider] - See instructions Clinical Impressions Clinical Impression: Atrial flutter, JOAN (acute kidney injury), Syncope and collapse Print Language Print Language: Malay Discharge ED Provider: Beck Rehman HPI General Chief Complaint: Arrhythmia/Palpitations Stated Complaint: light headed, flighty elevated pulse, shakes Time Seen by Provider: 10/14/23 08:19 Mode of Arrival: Ambulatory Source of Information: Patient Limitations: No Limitations Description of Symptoms (Recalled from ER Triage Doc. by RN): pt c/o a racing heart, feeling flighty, nervousness and low BP. pt states this has been ongoing since yesterday. 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 pt denies any pain or N/V/D. pt states he has a hx of CHF and 2 cardiac stents in 1987 when he had a complete LAD blockage. History of Present Illness HPI narrative: Please note that above description of symptoms, in this electronic medical record under categorization of recalled from ER triage doctor by RN are reflective of an initial nursing assessment, however, is not reflective of my full history and physical exam that was personally taken and clarified. Consequentially, this preceding description of symptoms, which may include the patient's categorized chief complaint in the EMR, do not reflect my personal clinical impression, and the ultimate description of history of present illness and patient stated complaints should be deferred to this section of the note. Unless stated otherwise or congruent with this section of the note, additional signs, symptoms, or incongruence should be interpreted as inaccurate with my clinical impression. Related Data Home Medications ?Medication ?Instructions ?Recorded ?Confirmed amlodipine 5 mg tablet 5 mg PO DAILY Hypertension 09/01/18 09/01/18 aspirin 81 mg tablet,delayed 81 mg PO DAILY HEART HEALTH 09/01/18 09/01/18 release atorvastatin 20 mg tablet 20 mg PO HS Cholesterol 09/01/18 09/01/18 levothyroxine 137 mcg tablet 137 mcg PO DAILY thyroid 09/01/18 09/01/18 omega-3 fatty acids 300 mg capsule 300 mg PO DAILY Supplement 09/01/18 09/01/18 tamsulosin 0.4 mg capsule 0.4 mg PO DAILY prostate 09/01/18 09/02/18 Previous Rx's ?Medication ?Instructions ?Recorded metoprolol tartrate 75 mg tablet 75 mg PO BID #60 tabs 09/02/18 Allergies Allergy/AdvReac Type Severity Reaction Status Date / Time No Known Allergies Allergy Verified 10/14/23 08:29 [facility] Disclaimer: The information contained in this section may have been updated after the patient was seen, as this information can be updated by other users. Social History Smoking Status: Never smoker second hand exposure: No alcohol intake: current alcohol intake frequency: holidays/special occasions only current occupational status: retired Travel in the last 8 weeks: [place] the [place] household members: spouse housing: house caffeine: No ROS Obtained: Yes All systems reviewed & no additional complaints except as documented Physical Exam General General appearance: alert Neck Neck exam: Present trachea midline Chest Chest inspection: Present normal inspection and symmetric chest wall rise Respiratory Respiratory exam: Present normal lung sounds bilaterally; Absent respiratory distress, wheezes, stridor, accessory muscle use or prolonged expiratory phase Cardiovascular Cardiovascular exam: Present tachycardia, systolic murmur and other (Pulses equal and symmetric in upper and lower extremities) Extremities Exam Extremities exam: Absent edema Neurological Exam Neurological exam: Present alert, oriented X3 and CN II-XII intact Skin Skin exam: Present warm and dry; Absent cyanosis, diaphoresis or pallor HEART Score HEART Score HEART Score assessment performed?: Yes History (anamnesis): Moderately suspicious ECG: Non-specific disturbance Age: >65 years Risk factors: 3 or more risk factors Troponin: </= normal limit HEART Score: 6 Critical Care Critical Care Time Critical Care Time: Yes (cv) Attestation: On 10/14/23, the high probability of a clinically significant, sudden or life threatening deterioration of the following system(s) required my full and direct attention, intervention and personal management. The time I documented below is in addition to time spent performing reported procedures but includes the following listed in this critical care notation. Total Time Total Critical Care Time: 35 Medical Decision Making Medical Records Medical records reviewed: Yes I reviewed the patient's medical records. Adriel Inquiry Pt receiving controlled substance: No Adriel was queried for this patient: No Vital Signs Vital Signs: 10/14/23 08:18 10/14/23 08:31 10/14/23 09:24 Temperature 98.7 F Temperature Source Oral Pulse Rate 92 H 70 Pulse Rate [Left] 137 H Respiratory Rate 16 19 18 Blood Pressure 120/66 103/75 L Blood Pressure [Right Arm] 122/88 Blood Pressure Mean [Right Arm] 99 Blood Pressure Source [Right Arm] Automatic Cuff Blood Pressure Position [Right Arm] Sitting 02 Sat by Pulse Oximetry 97 96 98 Oxygen Delivery Method Room Air Room Air Room Air 10/14/23 09:30 10/14/23 10:00 Temperature Temperature Source Pulse Rate 62 69 Pulse Rate [Left] Respiratory Rate 10 L 13 Blood Pressure 102/72 L 122/78 Blood Pressure [Right Arm] Blood Pressure Mean [Right Arm] Blood Pressure Source [Right Arm] Blood Pressure Position [Right Arm] 02 Sat by Pulse Oximetry 98 95 Oxygen Delivery Method Room Air Room Air Lab Data Labs: Lab Results 10/14/23 08:15: WBC 9.6, RBC 5.20, Hgb 16.2, Hct 52.9 H, MCV 101.9 H, MCH 31.1, MCHC 30.5 L, RDW 14.6, Plt Count 268, MPV 7.9, Neut % (Auto) 67.7, Lymph % (Auto) 24.9, [place] % (Auto) 6.2, Eos % (Auto) 0.7, Baso % (Auto) 0.5, Neut # (Auto) 6.5, Lymph # (Auto) 2.4, [place] # (Auto) 0.6, Eos # (Auto) 0.1, Baso # (Auto) 0.1, PT 10.7, INR 0.95, APTT 27.9, Sodium 143, Potassium 4.2, Chloride 111 H, Carbon Dioxide 25, Anion Gap 11.2, BUN 29 H, Creatinine 1.50 H, Estimated Creat Clear 44, Estimated GFR 44 L, Est GFR ( Amer) 54 L, Glucose 149 H, Hemoglobin A1c 5.9, Calcium 9.1, Magnesium 2.2, Total Bilirubin 0.9, AST 37, ALT 26, Alkaline Phosphatase 84, Troponin I < 0.01, NT-Pro-B Natriuret Pep 3520 H, Total Protein 7.3, Albumin 4.2, Globulin 3.1, Albumin/Globulin Ratio 1.4, TSH 1.14, Thyroxine (T4) 9.6 10/14/23 08:15 10/14/23 08:15 Response Orders (Tests/Meds): ED MEDICATIONS Generic Name Dose Route Start Last Admin Trade Name Freq PRN Reason Stop Dose Admin Acetaminophen 650 mg 10/14/23 10:36 Acetaminophen 325mg Tab PO 11/13/23 10:35 Q4HP PRN Fever or Mild Pain (1-3) Heparin Sodium (Porcine) 5,000 unit 10/14/23 11:00 Heparin Sodium 5,000 Unit/Ml Vial IV 10/14/23 11:01 ONCE ONE Dextrose/Sodium Chloride 1,000 mls @ 100 mls/hr 10/14/23 10:45 Dextrose 5%-0.45% Nacl Iv Soln IV 11/13/23 10:44 .Q10H ROMI Heparin Sodium/Dextrose 500 mls @ 28 mls/hr 10/14/23 11:00 Heparin 25,000 Units In D5w 500ml Premix IV 11/13/23 10:59 .[id number] ROMI 1,400 UNITS/HR Metoprolol Tartrate 12.5 mg 10/14/23 10:50 Metoprolol Tartrate 25mg Tablet PO 11/13/23 10:49 BID ROMI Morphine Sulfate 2 mg 10/14/23 10:36 Morphine 2mg/Ml Syringe IV 11/13/23 10:35 Q4HP PRN Moderate Pain (4-6) Ondansetron HCl 4 mg 10/14/23 10:36 Ondansetron 4mg/2ml Vial IV 11/13/23 10:35 Q8HP PRN Nausea Discontinued Medications Generic Name Dose Route Start Last Admin Trade Name Freq PRN Reason Stop Dose Admin Iopamidol 85 ml 10/14/23 09:09 10/14/23 09:10 Iopamidol-370 (76%);100ml Bottle IV 10/14/23 09:10 85 ml ONCE ONE Administration Metoprolol Tartrate 5 mg 10/14/23 08:38 10/14/23 09:33 Metoprolol Tartrate 5mg/5ml Vial IV 10/14/23 08:39 Not Given ONCE ONE Miscellaneous 1 each 10/14/23 10:45 Heparin Drip Consult NOTAPPLIC 11/13/23 10:44 CONSULT [facility] Sodium Chloride 50 ml 10/14/23 09:09 10/14/23 09:10 0.9 % Sodium Chloride 50 Ml Vial IV 10/14/23 09:10 50 ml ONCE ONE Administration Sodium Chloride 10 ml 10/14/23 09:09 10/14/23 09:10 Sodium Chloride 0.9% 10ml Syr (Rad Only) IV 10/14/23 09:10 10 ml ONCE ONE Administration ORDERS Category Date Time Status CT angio chest - dissection Stat Cat Scan 10/14/23 08:20 Completed Cardiology Consult [Consult to Cardiology] [CONS] Cons 10/14/23 09:41 Active Routine Cardiology Consult [Consult to Cardiology] [CONS] Cons 10/14/23 10:33 Active Routine XR chest portable Stat Exams 10/14/23 08:20 Completed Basic Metabolic Panel AMLAB Lab 10/15/23 06:00 Ordered Basic Metabolic Panel AMLAB Lab 10/16/23 06:00 Ordered Basic Metabolic Panel AMLAB Lab 10/17/23 06:00 Ordered Basic Metabolic Panel AMLAB Lab 10/18/23 06:00 Ordered Complete Blood Count Auto Diff AMLAB Lab 10/15/23 06:00 Ordered Complete Blood Count Auto Diff AMLAB Lab 10/16/23 06:00 Ordered Complete Blood Count Auto Diff AMLAB Lab 10/17/23 06:00 Ordered Complete Blood Count Auto Diff AMLAB Lab 10/18/23 06:00 Ordered Complete Blood Count Auto Diff Stat Lab 10/14/23 08:15 Completed Comprehensive Metabolic Panel Stat Lab 10/14/23 08:15 Completed Folate Stat Lab 10/14/23 08:15 Received Free T4 (Free Thyroxine) Stat Lab 10/14/23 10:34 Ordered Hemoglobin A1C Stat Lab 10/14/23 08:15 Completed Lactic Acid Stat Lab 10/14/23 08:21 Ordered Magnesium AMLAB Lab 10/15/23 06:00 Ordered Magnesium AMLAB Lab 10/16/23 06:00 Ordered Magnesium AMLAB Lab 10/17/23 06:00 Ordered Magnesium AMLAB Lab 10/18/23 06:00 Ordered Magnesium Stat Lab 10/14/23 08:15 Completed NT Pro Brain Natriuretic Pep. Stat Lab 10/14/23 08:15 Completed PT INR [Prothrombin Time INR] Stat Lab 10/14/23 08:15 Completed PTT Heparin (inpatient only) Stat Lab 10/14/23 10:34 Ordered PTT [Activated Partial Thrombo Time] Stat Lab 10/14/23 08:15 Completed T4 (Thyroxine) Stat Lab 10/14/23 08:15 Completed TSH [Thyroid Stimulating Hormone] Stat Lab 10/14/23 08:15 Completed TSH [Thyroid Stimulating Hormone] Timed Lab 10/14/23 10:34 Ordered Trop I [Troponin I] Q6H Lab 10/14/23 10:45 Ordered Trop I [Troponin I] Q6H Lab 10/14/23 22:45 Ordered Troponin I Q3H Lab 10/14/23 11:30 Ordered Troponin I Q3H Lab 10/14/23 13:45 Ordered Troponin I Q3H Lab 10/14/23 14:30 Ordered Troponin I Q3H Lab 10/14/23 16:45 Ordered Troponin I Stat Lab 10/14/23 08:15 Completed Vitamin B12 Stat Lab 10/14/23 08:15 Received CA echo doppler complete Routine Y 10/14/23 10:34 Completed MDM Narrative Medical Decision Narrative: 87-year-old male with history of hypertension, hyperlipidemia hypothyroidism, CHF, CAD status post stenting presenting with palpitations, anxiety. Patient states that he was laying mulch yesterday, 10/12 when he started feeling rapid heart rate, flighty, and anxious. Denies chest pain, shortness of breath, nausea, vomiting, diaphoresis, neurologic deficits, but does state that he passed out, shortly after the symptoms started. Did not fall and hit his head. No recent illness, only currently complaining of rapid heart rate and feeling anxious. Denies lower extremity swelling, PND, orthopnea. History was obtained via conversation with patient. On arrival, patient hemodynamically stable, alert, oriented x4, appropriate, GCS 15, moving all extremities spontaneously, pupils equal and reactive to light. Full physical exam performed and significant for rapid heart rate, difficult to ascertain whether it is regular or irregular given rate. Does not appear to be fluctuating significantly. No JVD. Patient does have systolic ejection murmur right upper sternal border, no other appreciable murmurs. Pulses equal and symmetric in upper and lower extremities. Mentating without issue, grossly neurologically intact. Patient does not have adventitious lung sounds, clear to auscultation bilaterally. Differential includes atrial fibrillation, atrial flutter, sinus tachycardia, metabolic, endocrinologic, ACS, DC, pneumothorax, pneumonia, PE, dissection, among others. Patient was given 5 mg metoprolol for symptomatic management and correction of underlying abnormalities. Patient placed on continuous cardiac monitoring and continuous pulse ox with initial blood pressure 122/88, heart rate 37, saturation 97% on room air. Independent interpretation of EKG shows what appears to be atrial flutter versus A-fib with RVR about 136 bpm. No obvious, discernible P waves. QRS is wide 170 bpm., QTc 427. Right axis deviation with right bundle branch block morphology. Workup independently interpreted and significant for nonactionable CBC other than mild erythrocytic macrocytosis. Chemistry nonactionable other than mild JOAN creatinine 1.5 up from normal baseline, appears prerenal with BUN 30. Patient's troponin negative. BNP elevated greater than 3000 with no baseline with which to compare. Magnesium normal. On independent interpretation of imaging, no acute cardiopulmonary space disease on chest x-ray, no evidence of edema or effusions. CT angiogram of chest without PE or dissection. See radiology read for full review of final results. Heart score 6. Repeat EKG atrial flutter 68 beats a minute with no ST or T wave changes concerning for acute ischemia. Appears to be 3-1 conduction block. Cardiology was contacted and case was discussed at length, to be evaluated. Hospital medicine was contacted and case was discussed at length, to be admitted for further evaluation. [employer] disclaimer Much of this encounter note is an electronic litigation partner spoken language to printed text. Electronic litigation partner of the spoken language may permit errors. Although I have reviewed the note, some errors may still exist.
[2023-10-14 08:37] LABS: Chloride 111 mmol/L (98-107)
[2023-10-14 08:37] LABS: INR 0.95 (0.9-1.1); Prothrombin Time 10.7 seconds (10.1-12.5)
[2023-10-14 08:38] LABS: Albumin Level 4.2 g/dl (3.5-5.0); Potassium 4.2 mmoL/L (3.5-5.1); Sodium 143 mmol/L (136-145)
[2023-10-14 08:40] LABS: Alanine Aminotransferase 26 U/L (12-78); Anion Gap 11.2 mEq/L (5-15); Aspartate Amino Transferase 37 U/L (17-59); Blood Urea Nitrogen 29 mg/dl (9-20); Carbon Dioxide 25 mmol/L (22.0-30.0); Creatinine Clearance Estimated 44 mL/min (50-200); Estimated Glomerular Filt Rate 44 ml/min (>60); GFR (African American) 54 ML/MIN (>60)
[2023-10-14 08:40] LABS: Magnesium 2.2 mg/dl (1.6-2.3)
[2023-10-14 08:41] LABS: Albumin/Globulin Ratio 1.4 (1.1-1.8); Alkaline Phosphatase 84 U/L (38-126); Bilirubin,Total 0.9 mg/dl (0.2-1.3); Calcium 9.1 mg/dl (8.4-10.2); Globulin 3.1 g/dL (1.3-3.2); Glucose 149 mg/dl (74-100); Total Protein,Serum 7.3 g/dl (6.3-8.2)
[2023-10-14 08:50] LABS: NT Pro Brain Natriuretic Pep. 3520 pg/mL (0-450)
[2023-10-14 08:51] LABS: Activated Partial Thrombo Time 27.9 seconds (22.8-30.6)
[2023-10-14 08:55] LABS: Hemoglobin A1C 5.9 % (4.0-6.0)
[2023-10-14 08:55] LABS: Troponin I < 0.01 ng/ml (0.00-0.034)
[2023-10-14 08:59] LABS: T4 (Thyroxine) 9.6 ug/dl (5.53-11.0)
[2023-10-14] MEDS: IOPAMIDOL-370 (76%);100ML BOTTLE 85 ML IV (09:10)
[2023-10-14] MEDS: SODIUM CHLORIDE 0.9% 10ML SYR (RAD ONLY) 10 ML IV (09:10)
[2023-10-14] MEDS: 0.9 % SODIUM CHLORIDE 50 ML VIAL IV (09:10)
[2023-10-14 09:12] LABS: Thyroid Stimulating Hormone 1.14 uIU/mL (0.465-4.68)
--- NOTE | 2023-10-14 09:19 | ECG_ITS ---
APPROVED REPORT Exam: Resting ECG HR:68 bpm ECG Measurements Heart Rate 68 AXES QRSd 185 QRS 126 QT 345 T -27 QTc 362 Conclusion A flutter RIGHT AXIS DEVIATION [QRS AXIS > 100] RIGHT BUNDLE BRANCH BLOCK [120+ ms QRS DURATION, UPRIGHT V1, 40+ ms S IN I/aVL/V4/V5/V6] Electronically signed by : KWESI NGUYEN, 10/14/2023 15:44:20
--- NOTE | 2023-10-14 10:34 | CA_ITS ---
APPROVED REPORT EXAM: Comprehensive 2D, Doppler, and color-flow Echocardiogram Tape Fastener Machine Operator: Doreen Pinon RDCS Ht: 5 ft 8 in Wt: 195lbs BSA: 2.02 BP: 120/66 mmHg Indications: A FLUTTER,RBBB,CHF,PALPS,SYNCOPE 2D Dimensions Left Atrium 4.76 cm M: 3.0 - 4.0 EF AP4 34.00 % LVOT 2.26 cm (M/F) 1.5-2.5 GL Strain -3.7 % M-Mode Dimensions RVDd 1.37 cm (0.9-2.6) LVDd 5.78 cm (3.5-5.7) Ao Diam 3.07 cm (2.0-3.7) LVDs 4.46 cm (3.5-5.7) IVSd 0.96 cm (0.6-1.1) PWd 0.84 cm (0.6-1.1) EF (Teich) 45.20% FS 22.80% EDV (Teich) 165.20 mL ESV (Teich) 90.50 mL LV Diastology E Decel Time 169 (160-240 msec) E/A Ratio 1.1 MED E' 4.9 (>= 7 cm/sec) E'/MED E' Ratio 12.67 (<= 14) LAT E' 5.8 (>= 10 cm/sec) E/LAT E' Ratio 10.71 (<= 14) Aortic Valve LVOT Max 133.0 (70-110 cm/s) BANG Index 2.00 cm2/m2 LVOT VTI 24.43 cm AoV Peak Cordell. 129.0 (50-130 cm/s) AO Mean GR. 3.30 (<5 mmHg) AO VTI 24.2 (18-25 cm) BANG (VTI) 4.04 (2.5-4.5 cm2) Mitral Valve MV E Max Cordell. 62.0 (40-130 cm/s) MV A Velocity 58.0 (40-130 cm/s) E/A Ratio 1.07 MV Decel. Time 169 (160-240 ms) Left Ventricle The left ventricle is normal size. Left ventricular systolic function is severely decreased. There is increased LV wall thickness. There is severe global hypokinesis present. Diastolic function is indeterminate. LVEF is 25%. Right Ventricle The right ventricle is normal size. The right ventricular systolic function is normal. Atria The left atrium is mildly dilated. The right atrium size is normal. There is no Doppler evidence of interatrial shunt. Aortic Valve Aortic valve is mildly thickened. There is no aortic valvular stenosis. Trace aortic regurgitation. Mitral Valve The mitral valve leaflets are mildly thickened. No evidence of mitral valve stenosis. Trace mitral regurgitation. Tricuspid Valve The tricuspid valve leaflets are thin and pliable. Trace tricuspid regurgitation. There is insufficient TR jet to estimate RVSP. Pulmonic Valve The pulmonic valve is not very well-visualized. Trace pulmonic regurgitation. Great Vessels The aortic root is not well-visualized. IVC is normal in size and collapses >50% with inspiration. Pericardium There is no pericardial effusion. Other Information Study Quality: Technically Difficult Conclusion Technically difficult study due to poor acoustic windows. Severely reduced LV systolic function (LVEF 25%). No significant valvular stenosis or regurgitation. When directly compared to the prior study from 2019, the reduction in LV systolic function is new. Electronically signed by : Chaya Mcconnell MD 10/16/2023 00:37:13
--- NOTE | 2023-10-14 10:37 | PC.NURSE ---
lead nuclear medicine technologist called and is going to come down prior to being admitted.
--- NOTE | 2023-10-14 10:39 | P.HP_ITS ---
History of Present Illness *Admission Date: 10/14/23 *Reason for visit:: LOC, palpitations *History of present illness: Really nice patient with past medical history of CAD with stent, hypertension, hyperlipidemia, hypothyroidism, BPH. Patient was performing yard work around 5 PM 11/01 when he noted LOC. Patient states while spreading mulch yesterday he noticed lightheadedness, then passed out denies chest discomfort, palpitations, sweating during episode. Patient brought for evaluation by his daughter/ to hospital today. Patient noted to have heart rate in 150s with low blood pressure in emergency room. EKG showed 3-1 atrial flutter. Denies history of atrial flutter/fibrillation. Not on DOAC or warfarin at this time. Denies fevers, chills, known sick contacts, abdominal pain, diarrhea, chest pain. States he suffers from chronic constipation. Systolic ejection murmur noted during evaluation emergency room. CTA chest ordered in emergency room with results pending at time of hospitalization. Patient also presents with BUN/creatinine 30/1.5. [facility] Disclaimer: The information contained in this section may have been updated after the patient was seen, as this information can be updated by other users. Social History Smoking Status: Never smoker second hand exposure: No alcohol intake: current alcohol intake frequency: holidays/special occasions only current occupational status: retired Travel in the last 8 weeks: [place] the [place] household members: spouse housing: house caffeine: No Review of Systems Review of Systems Review of systems:: pertinent systems reviewed and negative unless documented below Meds Home Medications and Allergies Home Medications ?Medication ?Instructions ?Recorded ?Confirmed ?Type amlodipine 5 mg tablet 5 mg PO DAILY Hypertension 09/01/18 09/01/18 History aspirin 81 mg tablet,delayed 81 mg PO DAILY HEART HEALTH 09/01/18 09/01/18 History release atorvastatin 20 mg tablet 20 mg PO HS Cholesterol 09/01/18 09/01/18 History levothyroxine 137 mcg tablet 137 mcg PO DAILY thyroid 09/01/18 09/01/18 History omega-3 fatty acids 300 mg capsule 300 mg PO DAILY Supplement 09/01/18 09/01/18 History tamsulosin 0.4 mg capsule 0.4 mg PO DAILY prostate 09/01/18 09/02/18 History metoprolol tartrate 75 mg tablet 75 mg PO BID #60 tabs 09/02/18 Rx New Prescriptions to Start Prescriptions: Allergies Allergy/AdvReac Type Severity Reaction Status Date / Time No Known Allergies Allergy Verified 10/14/23 08:29 Exam Data for Last 24 hours Vital signs and Labs for Last 24 Hours: Temp Pulse Resp BP Pulse Ox O2 Del Method 98.7 F 69 13 122/78 95 Room Air 10/14/23 08:18 10/14/23 10:00 10/14/23 10:00 10/14/23 10:00 10/14/23 10:00 10/14/23 10:00 Laboratory Results - last 24 hr 10/14/23 08:15: WBC 9.6, RBC 5.20, Hgb 16.2, Hct 52.9 H, MCV 101.9 H, MCH 31.1, MCHC 30.5 L, RDW 14.6, Plt Count 268, MPV 7.9, Neut % (Auto) 67.7, Lymph % (Auto) 24.9, [place] % (Auto) 6.2, Eos % (Auto) 0.7, Baso % (Auto) 0.5, Neut # (Auto) 6.5, Lymph # (Auto) 2.4, [place] # (Auto) 0.6, Eos # (Auto) 0.1, Baso # (Auto) 0.1, PT 10.7, INR 0.95, APTT 27.9, Sodium 143, Potassium 4.2, Chloride 111 H, Carbon Dioxide 25, Anion Gap 11.2, BUN 29 H, Creatinine 1.50 H, Estimated Creat Clear 44, Estimated GFR 44 L, Est GFR ( Amer) 54 L, Glucose 149 H, Hemoglobin A1c 5.9, Calcium 9.1, Magnesium 2.2, Total Bilirubin 0.9, AST 37, ALT 26, Alkaline Phosphatase 84, Troponin I < 0.01, NT-Pro-B Natriuret Pep 3520 H, Total Protein 7.3, Albumin 4.2, Globulin 3.1, Albumin/Globulin Ratio 1.4, TSH 1.14, Thyroxine (T4) 9.6 I & O for Last 24 hours: Intake & Output 10/11/23 10/12/23 10/13/23 10/14/23 23:59 23:59 23:59 23:59 Weight 88.451 kg Radiology Reports for the Last 24 Hours: CTA chest ordered in emergency room with results currently pending CT brain ordered at time of hospitalization *Routine HEENT Exam Head: Present normocephalic Eye: Present EOMI and normal accommodation ENT: Present mucous membranes moist *Routine Neck Exam Neck: Present supple and full ROM *Routine Respiratory Exam Respiratory: Present accessory muscle use and CTA bilaterally *Routine Cardiovascular Exam Cardiovascular: Present RRR, Normal S1 and Normal S2 *Routine Abdominal Exam Abdominal: Present soft and normoactive bowel sounds *Routine Rectal Exam Rectal:: deferred *Routine Genitalia Exam Genitalia:: deferred *Routine Extremities Exam Extremities: Present full ROM and normal capillary refill *Routine Skin Exam Skin: Present intact and dry *Routine Neurological Exam Neurological: Present alert, oriented X3 and CN II-XII intact Assessment and Plan *Assessment and plan (1) Atrial flutter: Status: Acute Category: Medical Code(s): I48.92 - Unspecified atrial flutter (2) History of coronary artery stent placement: Status: Chronic Category: Surgical Code(s): Z95.5 - Presence of coronary angioplasty implant and graft (3) Hypothyroidism: Status: Chronic Category: Medical Code(s): E03.9 - Hypothyroidism, unspecified (4) Hyperlipidemia: Status: Chronic Category: Medical Code(s): E78.5 - Hyperlipidemia, unspecified (5) Hypertension: Status: Chronic Category: Medical Code(s): I10 - Essential (primary) hypertension (6) CAD (coronary artery disease), [place] coronary artery: Status: Chronic Category: Medical Code(s): I25.10 - Atherosclerotic heart disease of [place] coronary artery without angina pectoris Plan Really nice 87-year-old with past medical history of hypertension, hyperlipidemia CAD with cardiac stents, hypothyroidism, BPH. Patient suffered from loss of consciousness yesterday, and presents to emergency room with atrial flutter on EKG/telemetry, and hypotension. New onset A flutter: ?Admit to stepdown, start heparin GTT, consult cardiology, start Lopressor 50 mg p.o. twice daily. Echocardiogram, serial troponins. Check TSH. Telemetry monitoring. Loss of consciousness likely due to atrial flutter: ? Order CT brain to rule out neurological structural abnormalities for loss of consciousness yesterday. Loss of consciousness most likely secondary to atrial flutter newly diagnosed. No signs of hypoxia in ED. Electrolytes relatively wi thin normal limits. JOAN secondary to dehydration: ? Gentle hydration during hospitalization BPH: Continue home management Hypertension: Hold antihypertensive medicines while patient hypotensive Hyperlipidemia: Continue home management PPx: Heparin GTT CODE STATUS full FEN: Cardiac diet Case discussed with patient, patient's daughter, patient's , nursing staff by Dr. Loyd at time of admission 10/14/2023
--- NOTE | 2023-10-14 10:46 | PC.NURSE ---
Ramez spoke with radiology to request a consult prior to being admitted.
--- NOTE | 2023-10-14 10:48 | PC.NURSE ---
Vascular at [facility]
--- NOTE | 2023-10-14 10:53 | PC.NURSE ---
I called to request a bed for admission for JOAN and new onset atrial flutter.
[2023-10-14] MEDS: HEPARIN 25,000 UNITS/D5W 500 ML 28 UNIT IV (11:10)
[2023-10-14] MEDS: HEPARIN DRIP CONSULT 1 EACH NOTAPPLIC (11:11)
[2023-10-14] MEDS: HEPARIN SODIUM 5,000 UNIT/ML VIAL 5000 UNIT IV (11:12)
--- NOTE | 2023-10-14 11:15 | PC.NURSE ---
awaiting bed availablility for pt to be transferred to second floor.
--- NOTE | 2023-10-14 11:19 | PC.NURSE ---
Spoke with about metoprolol order, pt states that he took metoprolol this am at 0600, hr is 58-59 at this time. MD wants to hold the dose at this time.
--- NOTE | 2023-10-14 11:34 | PC.NURSE ---
Report called to Josee TATE. We are waiting on an available room.
[2023-10-14 11:37] LABS: PTT Heparin (inpatient only) 27.7 Seconds (50-75)
[2023-10-14 11:37] LABS: Vitamin B12 298 pg/mL (239-931)
[2023-10-14 11:43] LABS: Folate 8.68 ng/mL
[2023-10-14 11:58] LABS: Free T4 (Free Thyroxine) 1.23 ng/dl (0.78-2.19)
--- NOTE | 2023-10-14 12:13 | PC.NURSE ---
Assisted Pt to and from the Restroom, hooked him back up to vitals and asked if he had any needs
[2023-10-14 12:17] LABS: Troponin I 0.04 ng/ml (0.00-0.034)
--- NOTE | 2023-10-14 12:44 | HMH.PHAHEP ---
[facility] Pharmacy Heparin Dosing Demographic Data Admission date:: 10/14/23 Date: 10/14/23 Time: 12:44 Allergies Allergy/AdvReac Type Severity Reaction Status Date / Time No Known Allergies Allergy Verified 10/14/23 08:29 Height: 1.73 m Weight: 88.5 kg Indication Medication therapy:: Heparin Current Indications:: aflutter/afib Current Active Problems (Updated 10/14/23 @ 10:56 by Beck Rehman MD) Syncope and collapse (Acute) JOAN (acute kidney injury) (Acute) Atrial flutter (Acute) Atrial flutter (Acute) History of coronary artery stent placement (Chronic) Hypothyroidism (Chronic) Hyperlipidemia (Chronic) Hypertension (Chronic) CAD (coronary artery disease), [place] coronary artery (Chronic) CVA?: No Bleeding problem?: No Kidney disease?: No NE?: No Desired PTT range:: 50-75 seconds Labs Anticoagulation Lab Results:: 10/14/23 08:15 Hgb 16.2 Hct 52.9 H Plt Count 268 Monitoring Dose Monitor 1: Date: 10/14/23 Time: 11:10 PTT Result:: baseline ptt 27.9 Infusion Rate:: START INFUSION WITH HEPARIN 28 ML/HR (1400 UNITS/HR), 5000 UNIT BOLUS Comment:: PLT 268 Dose Monitor 2: Date: 10/14/23 Time: 16:30 PTT Result:: PROVIDER STOPPED HEPARIN DRIP AND CHANGED TO ELIQUIS 5 MG BID Core Measures Is INR > or = 2 at discharge?: No Most Recent Labs:: Laboratory Results - last 24 hr 10/14/23 08:15: WBC 9.6, RBC 5.20, Hgb 16.2, Hct 52.9 H, MCV 101.9 H, MCH 31.1, MCHC 30.5 L, RDW 14.6, Plt Count 268, MPV 7.9, Neut % (Auto) 67.7, Lymph % (Auto) 24.9, [place] % (Auto) 6.2, Eos % (Auto) 0.7, Baso % (Auto) 0.5, Neut # (Auto) 6.5, Lymph # (Auto) 2.4, [place] # (Auto) 0.6, Eos # (Auto) 0.1, Baso # (Auto) 0.1, PT 10.7, INR 0.95, APTT 27.9, Hemoglobin A1c 5.9, Magnesium 2.2, NT-Pro-B Natriuret Pep 3520 H, Vitamin B12 298, Folate 8.68, TSH 1.10 10/14/23 10:55: APTT 27.7 L, Troponin I 0.04 H, Free T4 1.23 10/14/23 11:09: Sodium 143, Potassium 4.2, Chloride 111 H, Carbon Dioxide 25, Anion Gap 11.2, BUN 29 H, Creatinine 1.50 H, Estimated Creat Clear 44, Estimated GFR 44 L, Est GFR ( Amer) 54 L, Glucose 149 H, Calcium 9.1, Total Bilirubin 0.9, AST 37, ALT 26, Alkaline Phosphatase 84, Troponin I < 0.01, Total Protein 7.3, Albumin 4.2, Globulin 3.1, Albumin/Globulin Ratio 1.4, TSH 1.14, Thyroxine (T4) 9.6 If INR was < than 2.0 why was therapy stopped?: ELIQUIS Were Heparin and Warfarin started on the same day?: No If not, why?: MARITO
--- NOTE | 2023-10-14 12:58 | P.CONCA_ITS ---
History of Present Illness History of Present Illness Consult date: 10/14/23 Requesting physician: Rebel Loyd Consult reason: atrial fibrillation Chief complaint: Syncope History of present illness: 87-year-old white male with history of CAD status post CABG in 1987, diagnosed with A-fib in 2019 but never treated for this. Patient states he was outside spreading mulch at his house yesterday when he began feeling dizzy. He stood up and then had complete syncope. After he regained consciousness he felt tachycardia and uneasy feeling which continues to the night and into this morning so he presented to the emergency room he is found to be in atrial fibrillation with rapid ventricular response and a heart rate in the 130s with JOAN. proBNP was 3000, chest x-ray shows atelectasis but no edema. Patient [place] es angina, troponin is normal. He is currently sinus rhythm in the emergency room and feeling back to his baseline. [facility] Disclaimer: The information contained in this section may have been updated after the patient was seen, as this information can be updated by other users. Medical History (Updated 10/14/23 @ 13:31 by Josee Calhoun RN) HLD (hyperlipidemia) Macular degeneration Cataract History of BPH Atrial flutter Afib Hypothyroid CAD (coronary artery disease) HTN (hypertension) Surgical History (Updated 10/14/23 @ 13:31 by Josee Calhoun RN) H/O heart artery stent Social History Smoking Status: Never smoker second hand exposure: No alcohol intake: current alcohol intake frequency: holidays/special occasions only current occupational status: retired Travel in the last 8 weeks: Inside the [place] household members: spouse housing: house caffeine: No Review of Systems Constitutional Constitutional: Denies fatigue and Reports weakness Eyes Eyes: Denies loss of vision ENT Ears, Nose, Mouth, and Throat: Denies hearing loss and Reports vertigo *Cardiovascular Cardiovascular: Denies chest pain, Denies dyspnea and Reports syncope *Respiratory Respiratory: Denies cough and Denies dyspnea *Gastrointestinal Gastrointestinal: Denies change in stool character, Denies nausea and Denies vomiting *Genitourinary Genitourinary: Denies difficulty urinating *Musculoskeletal Musculoskeletal: Denies muscle weakness Integumentary/Breasts Skin/Breast: Denies changing lesions *Neurologic Neurologic: Denies loss of vision, Reports syncope, Reports vertigo and Reports weakness Endocrine Endocrine: Denies fatigue Exam Data for Last 24 hours Vital signs and Labs for Last 24 Hours: Temp Pulse Resp BP Pulse Ox O2 Del Method 98.7 F 70 14 111/75 97 Room Air 10/14/23 08:18 10/14/23 12:00 10/14/23 12:00 10/14/23 12:00 10/14/23 12:00 10/14/23 12:00 Laboratory Results - last 24 hr 10/14/23 08:15: WBC 9.6, RBC 5.20, Hgb 16.2, Hct 52.9 H, MCV 101.9 H, MCH 31.1, MCHC 30.5 L, RDW 14.6, Plt Count 268, MPV 7.9, Neut % (Auto) 67.7, Lymph % (Auto) 24.9, [place] % (Auto) 6.2, Eos % (Auto) 0.7, Baso % (Auto) 0.5, Neut # (Auto) 6.5, Lymph # (Auto) 2.4, [place] # (Auto) 0.6, Eos # (Auto) 0.1, Baso # (Auto) 0.1, PT 10.7, INR 0.95, APTT 27.9, Hemoglobin A1c 5.9, Magnesium 2.2, NT-Pro-B Natriuret Pep 3520 H, Vitamin B12 298, Folate 8.68, TSH 1.10 10/14/23 10:55: APTT 27.7 L, Troponin I 0.04 H, Free T4 1.23 10/14/23 11:09: Sodium 143, Potassium 4.2, Chloride 111 H, Carbon Dioxide 25, Anion Gap 11.2, BUN 29 H, Creatinine 1.50 H, Estimated Creat Clear 44, Estimated GFR 44 L, Est GFR ( Amer) 54 L, Glucose 149 H, Calcium 9.1, Total Bilirubin 0.9, AST 37, ALT 26, Alkaline Phosphatase 84, Troponin I < 0.01, Total Protein 7.3, Albumin 4.2, Globulin 3.1, Albumin/Globulin Ratio 1.4, TSH 1.14, Thyroxine (T4) 9.6 I & O for Last 24 hours: Intake & Output 10/11/23 10/12/23 10/13/23 09/05/24 23:59 23:59 23:59 23:59 Weight 195 lb 1.745 oz Constitutional Constitutional: no acute distress and cooperative *Routine HEENT Exam Eye: Present PERRL *Routine Respiratory Exam Respiratory: Present CTA bilaterally; Absent accessory muscle use, wheezes or crackles *Routine Cardiovascular Exam Cardiovascular: Present RRR, Normal S1 and Normal S2; Absent murmur, gallop or rubs *Routine Abdominal Exam Abdominal: Present soft; Absent tenderness *Routine Extremities Exam Extremities: Present pulses intact; Absent cyanosis or edema *Routine Skin Exam Skin: Present intact; Absent erythema or wounds *Routine Neurological Exam Neurological: Present alert and oriented X3 Routine Psychiatric Exam Psychiatric: Present cooperative Meds Home Medications and Allergies Home Medications ?Medication ?Instructions ?Recorded ?Confirmed ?Type amlodipine 5 mg tablet 5 mg PO DAILY 09/01/18 10/14/23 History aspirin 81 mg tablet,delayed 81 mg PO DAILY 09/01/18 10/14/23 History release atorvastatin 20 mg tablet 20 mg PO HS 09/01/18 10/14/23 History tamsulosin 0.4 mg capsule 0.4 mg PO HS 09/01/18 10/14/23 History levothyroxine 125 mcg tablet 125 mcg PO DAILY 10/14/23 10/14/23 History metoprolol tartrate 50 mg tablet 50 mg PO BID 10/14/23 10/14/23 History New Prescriptions to Start Prescriptions: Allergies Allergy/AdvReac Type Severity Reaction Status Date / Time No Known Allergies Allergy Verified 10/14/23 08:29 Assessment and Plan *Assessment and plan (1) Atrial flutter: Status: Acute Category: Medical Code(s): I48.92 - Unspecified atrial flutter (2) Syncope and collapse: Status: Acute Category: Medical Code(s): R55 - Syncope and collapse (3) History of coronary artery stent placement: Status: Chronic Category: Surgical Code(s): Z95.5 - Presence of coronary angioplasty implant and graft Plan A-flutter with RVR - known dx since 2019 but untreated - likely exacerbated by dehydration and hypotension - spontaneous conversion with hydration and rate control - CHADS-VASC = 4, pt agreeable to change ASA to OAC - continue hydration efforts and BB Syncope - likely secondary to Aflutter, possible SSS/pause - 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 Will start IV Amio. Prelim ECHO shows EF 25% which is a new significant finding for him. Will repeat ECHO with definity contrast for better imaging.
--- NOTE | 2023-10-14 13:12 | HMH.PHAINT1 ---
Pharmacy Intervention Comments: home medication list verified using list from outpatient pharmacy
--- NOTE | 2023-10-14 13:21 | PC.NURSE ---
heparin gtt discontinued per cardiology
--- NOTE | 2023-10-14 13:39 | ECG_ITS ---
APPROVED REPORT Exam: Resting ECG HR:136 bpm ECG Measurements Heart Rate 136 AXES NE 180 P 224 QRSd 154 QRS 151 QT 346 T -41 QTc 426 Conclusion Atrial flutter Right axis deviation with right bundle branch block Electronically signed by : KWESI NGUYEN, 10/14/2023 16:17:27
--- NOTE | 2023-10-14 13:49 | PC.NURSE ---
spoke with about hr of 140 consistent, pt states he feels jittery. speaking with cardiology
[2023-10-14] MEDS: AMIODARONE HCL 150 MG in DEXTROSE 5 % IN WATER 100 ML 618 MG IV (14:38)
[2023-10-14] MEDS: APIXABAN 5MG TABLET 5 MG PO ×2 (14:44→20:24)
[2023-10-14] MEDS: Dex 5% in 0.45% NaCl 1,000 ML 100 ML IV (14:44)
[2023-10-14] MEDS: AMIODARONE HCL 900 MG in DEXTROSE 5 % IN WATER 500 ML 34.53 MG IV (14:48)
--- NOTE | 2023-10-14 14:54 | PC.NURSE ---
PATIENT ARRIVED TO FLOOR BY STRETCHER AT 1401 K TE, SRNA
--- OUTSIDE RECORDS SUMMARY | 2023-10-14 14:56 | XMS_ITS | Patient Health Record ---
Author Organization [facility] Address [address] [place] [address] Care Team Providers Care [employer] Sales Representative Name Role Phone JaneeMerrill white Primary Care Provider [phone] Pamela Tinajero Unavailable [phone] Allergies No Known Allergies Results Component Value Reference Range Notes THYROID PANEL WITH TSH (7444 ) Reviewed date:09/29/2023 02:18:15 PM Interpretation: Performing Lab:[facility], [facility] [id number] [employer], [place] HeraldSmcqUV[address] Aldo Jaramillo Notes/Report: NON-FASTING; NON-FASTING; NON-FASTING; NON-FASTING; NON-FAST FASTING:YES FASTING: YES T3 UPTAKE 36 22-35 % T4 (THYROXINE), TOTAL 9.2 4.9-10.5 mcg/dL FREE T4 INDEX (T7) 3.3 1.4-3.8 TSH 0.62 0.40-4.50 mIU/L LIPID PANEL, STANDARD (7600) Reviewed date:09/29/2023 02:18:15 PM Interpretation: Performing Lab:[facility] Kjza[address] [employer] BlGrounded[employer], [employer] [place] HeraldLucxCO[address] Aldo Jaramillo Notes/Report: NON-FASTING; NON-FASTING; NON-FASTING; NON-FASTING; NON-FAST FASTING:YES FASTING: YES CHOLESTEROL, TOTAL 156 <200 mg/dL HDL CHOLESTEROL 43 > OR = 40 mg/dL TRIGLYCERIDES 128 <150 mg/dL LDL-CHOLESTEROL 91 Reference range: <100 Desirable range <100 mg/dL for primary prevention; <70 mg/dL for patients with CHD or diabetic patients with > or = 2 CHD risk factors. LDL-C is now calculated using the Thad-Ashly calculation, which is a validated novel method providing better accuracy than the Friedewald equation in the estimation of LDL-C. Thad SS et al. KARI. 2013;310(69): 7325-0964 (http://education.Ace Metrix.Applied BioCode/faq/BOK873) CHOL/HDLC RATIO 3.6 <5.0 (calc) NON HDL CHOLESTEROL 113 <130 mg/dL (calc) For patients with diabetes plus 1 major ASCVD risk factor, treating to a non-HDL-C goal of <100 mg/dL (LDL-C of <70 mg/dL) is considered a therapeutic option. COMPREHENSIVE METABOLIC PANE Nicholas (61191) Reviewed date:09/29/2023 02:18:15 PM Interpretation: Performing Lab:[facility], [facility] Sancheze13[address] [facility] Center[facility], Jose SanchezBrjnWO[address] Aldo Jaramillo Notes/Report: NON-FASTING; NON-FASTING; NON-FASTING; NON-FASTING; NON-FAST FASTING:YES FASTING: YES GLUCOSE 108 65-99 mg/dL Fasting reference interval For someone without known diabetes, a glucose value between 100 and 125 mg/dL is consistent with prediabetes and should be confirmed with a follow-up test. UREA NITROGEN (BUN) 22 7-25 mg/dL CREATININE 1.45 0.70-1.22 mg/dL EGFR 47 > OR = 60 mL/min/1.73m2 BUN/CREATININE RATIO 15 6-22 (calc) SODIUM 142 135-146 mmol/L POTASSIUM 4.7 3.5-5.3 mmol/L CHLORIDE 107 98-110 mmol/L CARBON DIOXIDE 26 20-32 mmol/L CALCIUM 9.4 8.6-10.3 mg/dL PROTEIN, TOTAL 7.2 6.1-8.1 g/dL ALBUMIN 4.4 3.6-5.1 g/dL GLOBULIN 2.8 1.9-3.7 g/dL (calc) ALBUMIN/GLOBULIN RATIO 1.6 1.0-2.5 (calc) BILIRUBIN, TOTAL 1.2 0.2-1.2 mg/dL ALKALINE PHOSPHATASE 78 35-144 U/L AST 19 10-35 U/L ALT 21 9-46 U/L CBC (INCLUDES DIFF/PLT) (639 9) Reviewed date:09/29/2023 02:18:15 PM Interpretation: Performing Lab:[facility], [place] HospitalAatdPW[address] Aldo Jaramillo Notes/Report: NON-FASTING; NON-FASTING; NON-FASTING; NON-FASTING; NON-FAST FASTING:YES FASTING: YES WHITE BLOOD CELL COUNT 8.7 3.8-10.8 Thousand/ uL RED BLOOD CELL COUNT 5.23 4.20-5.80 Million/uL HEMOGLOBIN 16.8 13.2-17.1 g/dL HEMATOCRIT 50.9 38.5-50.0 % MCV 97.3 80.0-100.0 fL MCH 32.1 27.0-33.0 pg MCHC 33.0 32.0-36.0 g/dL RDW 13.7 11.0-15.0 % PLATELET COUNT 247 140-400 Thousand/uL MPV 10.3 7.5-12.5 fL ABSOLUTE NEUTROPHILS 5290 5452-1258 cells/uL ABSOLUTE LYMPHOCYTES 2506 850-3900 cells/uL ABSOLUTE MONOCYTES 774 200-950 cells/uL ABSOLUTE EOSINOPHILS 104 15-500 cells/uL ABSOLUTE BASOPHILS 26 0-200 cells/uL NEUTROPHILS 60.8 LYMPHOCYTES 28.8 MONOCYTES 8.9 EOSINOPHILS 1.2 BASOPHILS 0.3 PSA, TOTAL (5363) Reviewed date:09/29/2023 02:18:15 PM Interpretation: Performing Lab:[facility] [place]-[place] Jjzg9061 [facility]el [facility], [facility] HospitalIcduBM[address] Aldo Jaramillo Notes/Report: NON-FASTING; NON-FASTING; NON-FASTING; NON-FASTING; NON-FAST FASTING:YES FASTING: YES PSA, TOTAL 2.10 < OR = 4.00 ng/mL The total PSA value from this assay system is standardized against the WHO standard. The test result will be approximately 20% lower when compared to the equimolar-standardized total PSA (Thang Kim). Comparison of serial PSA results should be interpreted with this fact in mind. This test was performed using the Siemens chemiluminescent method. Values obtained from different assay methods cannot be used interchangeably. PSA levels, regardless of value, should not be interpreted as absolute evidence of the presence or absence of disease. TSH W/REFLEX TO FT4 (85663) Reviewed date:01/05/2023 12:49:36 PM Interpretation: Performing Lab:[facility] [address], [place] CbehWW[address] Aldo Jaramillo Notes/Report: NON-FASTING; NON-FASTING; NON-FASTING; NON-FASTING FASTING:YES FASTING: YES TSH W/REFLEX TO FT4 1.77 0.40-4.50 mIU/L CBC (INCLUDES DIFF/PLT) (639 9) Reviewed date:01/05/2023 12:49:36 PM Interpretation: Performing Lab:[facility] [address], [place] DxgfPS[address] Aldo Jaramillo Notes/Report: NON-FASTING; NON-FASTING; NON-FASTING; NON-FASTING FASTING:YES FASTING: YES WHITE BLOOD CELL COUNT 10.9 3.8-10.8 Thousand/ uL RED BLOOD CELL COUNT 4.88 4.20-5.80 Million/uL HEMOGLOBIN 16.2 13.2-17.1 g/dL HEMATOCRIT 47.3 38.5-50.0 % MCV 96.9 80.0-100.0 fL MCH 33.2 27.0-33.0 pg MCHC 34.2 32.0-36.0 g/dL RDW 12.6 11.0-15.0 % PLATELET COUNT 264 140-400 Thousand/uL MPV 10.3 7.5-12.5 fL ABSOLUTE NEUTROPHILS 6420 1072-2550 cells/uL ABSOLUTE LYMPHOCYTES 3314 850-3900 cells/uL ABSOLUTE MONOCYTES 937 200-950 cells/uL ABSOLUTE EOSINOPHILS 185 15-500 cells/uL ABSOLUTE BASOPHILS 44 0-200 cells/uL NEUTROPHILS 58.9 LYMPHOCYTES 30.4 MONOCYTES 8.6 EOSINOPHILS 1.7 BASOPHILS 0.4 COMPREHENSIVE METABOLIC PANE L (11270) Reviewed date:01/05/2023 12:49:36 PM Interpretation: Performing Lab:[facility] [address] [employer], [place] HospitalHxbuCN[address] Aldo Jaramillo Notes/Report: NON-FASTING; NON-FASTING; NON-FASTING; NON-FASTING FASTING:YES FASTING: YES GLUCOSE 101 65-99 mg/dL Fasting reference interval For someone without known diabetes, a glucose value between 100 and 125 mg/dL is consistent with prediabetes and should be confirmed with a follow-up test. UREA NITROGEN (BUN) 23 7-25 mg/dL CREATININE 1.43 0.70-1.22 mg/dL EGFR 48 > OR = 60 mL/min/1.73m2 BUN/CREATININE RATIO 16 6-22 (calc) SODIUM 138 135-146 mmol/L POTASSIUM 5.3 3.5-5.3 mmol/L CHLORIDE 105 98-110 mmol/L CARBON DIOXIDE 28 20-32 mmol/L CALCIUM 9.6 8.6-10.3 mg/dL PROTEIN, TOTAL 6.9 6.1-8.1 g/dL ALBUMIN 4.3 3.6-5.1 g/dL GLOBULIN 2.6 1.9-3.7 g/dL (calc) ALBUMIN/GLOBULIN RATIO 1.7 1.0-2.5 (calc) BILIRUBIN, TOTAL 1.1 0.2-1.2 mg/dL ALKALINE PHOSPHATASE 77 35-144 U/L AST 14 10-35 U/L ALT 17 9-46 U/L LIPID PANEL, STANDARD (7600) Reviewed date:01/05/2023 12:49:36 PM Interpretation: Performing Lab:[facility], [facility]1355 [facility] Centerte[facility], [facility] HospitalHcgtBX[address] Aldo Jaramillo Notes/Report: NON-FASTING; NON-FASTING; NON-FASTING; NON-FASTING FASTING:YES FASTING: YES CHOLESTEROL, TOTAL 139 <200 mg/dL HDL CHOLESTEROL 37 > OR = 40 mg/dL TRIGLYCERIDES 151 <150 mg/dL LDL-CHOLESTEROL 77 Reference range: <100 Desirable range <100 mg/dL for primary prevention; <70 mg/dL for patients with CHD or diabetic patients with > or = 2 CHD risk factors. LDL-C is now calculated using the Thad-Ashly calculation, which is a validated novel method providing better accuracy than the Friedewald equation in the estimation of LDL-C. Thad SS et al. KARI. 2013;310(19): 3928-8747 (http://education.Ace Metrix.com/faq/UGV155) CHOL/HDLC RATIO 3.8 <5.0 (calc) NON HDL CHOLESTEROL 102 <130 mg/dL (calc) For patients with diabetes plus 1 major ASCVD risk factor, treating to a non-HDL-C goal of <100 mg/dL (LDL-C of <70 mg/dL) is considered a therapeutic option. Reason For Referral No Information Medications Medication SIG (Take, Route, Frequency, Duration) Notes Start Date End Date Status Atorvastatin Calcium 20 mg 1 tab(s) oral ly once a day for 90 Active aspirin 81 mg 1 tab(s) orally once a day for 30 day(s) Active ICaps AREDS Antioxidant Multiple Vitamins and Minerals as directed orally for 30 day(s) Active omeprazole 20 mg 1 tab(s) orally once a day for 90 days prn Active ketoconazole topical 2% 1 daphnie applied to pically once a day for 14 day(s) 07/14/2021 Active Senokot S 50 mg-8.6 mg 2 tab(s) orally o nce a day (at bedtime) for 30 days 02/26/2022 Active Levothyroxine Sodium 125 mcg (0.125 mg) 1 tab(s) orally once a day for 90 Active Metoprolol Tartrate 50 mg 1 tab(s) orall y 2 times a day for 90 days Active amLODIPine 5 mg 1 tab(s) orally once a day for 90 days Active tamsulosin 0.4 mg 1 cap(s) orally once a day for 90 Active Immunizations Vaccine Route Administration Date Status Comme nts Prevnar PCV-20 (Pneumococcal conjugate 20) IM Intramuscular 02/26/2022 Administered Problems Problem Type SNOMED Code ICD Code Onset Dates Problem Status W/U Status Risk Notes Problem 8093245 Hesitancy of micturition (R39.11) Active confirmed Problem 750978535 Hyperlipemia, idiopathic familial (E78.5) Active confirmed Problem Gastroesophageal reflux disease (844296546) GERD without esophagitis (K21.9) Active confirmed Problem 88210133 Hypertension, essential (I10) Active confirmed Problem 75290416 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) Active confirmed Problem 929317204 BMI 30.0-30.9,adult (Z68.30) Active confirmed Problem 28939643 Constipation, unspecified constipation type (K59.00) Active confirmed Problem 8494824759413 Atherosclerosis of [place] coronary artery of [place] heart without angina pectoris (I25.10) Active confirmed Problem 057803849 Acquired hypothyroidism (E03.9) Active confirmed Problem Urinary hesitancy (0990561) Urinary hesitancy (R39.11) Active confirmed Problem 818698752 Perennial allerg ic rhinitis (J30.89) Active confirmed Problem 299296999 Benign prostatic hyperplasia with lower urinary tract symptoms (N40.1) Active confirmed Problem 160522760 Paroxysmal atria l flutter (I48.92) Active confirmed Vital Signs Heart Rate 54 /min 09/28/2023 Temperature 98 degrees Fahrenheit 09/28/2023 Blood pressure diastolic 72 mm Hg 09/28/2023 Height 68.5 in 09/28/2023 Blood pressure systolic 122 mm Hg 09/28/2023 Weight 187 lbs 09/28/2023 BMI 28.02 kg/m2 09/28/2023 Encounters Encounter Location Date Provider Diagnosis [facility] [address] [address] 01/04/2023 Pamela McNefuentes Benign prostatic hyperplasia with lower urinary tract symptoms N40.1 ; Acquired hypothyroidism E03.9 ; Hypertension, essential I10 ; Hyperlipemia, idiopathic familial E78.5 ; Paroxysmal atrial flutter I48.92 ; GERD without esophagitis K21.9 ; BMI 28.0-28.9,adult Z68.28 and Routine medical exam Z00.00 [facility] [address] [address] 09/28/2023 Merrill Besson Hypertension, essent ial I10 ; Acquired hypothyroidism E03.9 ; Benign prostatic hyperplasia with lower urinary tract symptoms N40.1 ; Hyperlipemia, idiopathic familial E78.5 ; Paroxysmal atrial flutter I48.92 ; Atherosclerosis of [place] coronary artery of [place] heart without angina pectoris I25.10 ; Elevated PSA R97.20 and Routine medical exam Z00.00 [facility] [address] [address] 11/30/2022 Merrill Besson Hypertension, essent ial I10 [facility] [address] [address] 12/23/2022 Merrill Besson Hypertension, essent ial I10 [facility] [address] [place] [address] 01/04/2023 Pamela McNees [facility] [address] [place] [address] 02/03/2023 Merrill Sol [facility] [address] [address] [facility] [address] [address] 03/08/2023 Merrill Mendoza Assessments Encounter Date Diagnosis (ICD Code) Assessment Notes Treat ment Notes Treatment Clinical Notes 11/30/2022 Hypertension, essential (ICD-10 - I10) 12/23/2022 Hypertension, essential (ICD-10 - I10) 01/04/2023 Acquired hypothyroidism (ICD-10 - E03.9) On synthroid, will check TSH and adjust as indicated 01/04/2023 Benign prostatic hyperplasia with lower urinary tract symptoms (ICD-10 - N40.1) Well controlled. No urinary symptoms. PSA last year was normal 09/28/2023 Hypertension, essential (ICD-10 - I10) -Chronic, well controlled -No changes to medications today 09/28/2023 Acquired hypothyroidism (ICD-10 - E03.9) -Clinically euthyroid -Will recheck TSH today 09/28/2023 Benign prostatic hyperplasia with lower urinary tract symptoms (ICD-10 - N40.1) -Chronic, stable symptoms -Continue flomax -Recheck PSA today 01/04/2023 Hypertension, essential (ICD-10 - I10) Blood pressure at goal, no changes 01/04/2023 Hyperlipemia, idiopathic familial (ICD-10 - E78.5) Tolerating statin with no myalgias. Will check fasting lipid panel today 09/28/2023 Hyperlipemia, idiopathic familial (ICD-10 - E78.5) -Recheck lipid panel -Continue atorvastatin 09/28/2023 Paroxysmal atrial flutter (ICD-10 - I48.92) -Chronic, asymptomatic, in sinus rhythm on exam -Continue metoprolol 01/04/2023 Paroxysmal atrial flutter (ICD-10 - I48.92) Regular today. Rate well controlled. Continue beta sheryl 01/04/2023 GERD without esophagitis (ICD-10 - K21.9) Well controlled on PPI. No changes today 09/28/2023 Atherosclerosis of [place] coronary artery of [place] heart without angina pectoris (ICD-10 - I25.10) -Stable, denies CP, SOA -Continue aspirin and statin 01/04/2023 BMI 28.0-28.9,adult (ICD-10 - Z68.28) BMi is acceptable. Will continue to monitor 09/28/2023 Elevated PSA (ICD-10 - R97.20) 01/04/2023 Routine medical exam (ICD-10 - Z00.00) Given patient''s advanced age is not a candidate for typical healthcare screening such as colonoscopy. No recent falls. Up-to-date with vaccinations. Nonsmoker. 09/28/2023 Routine medical exam (ICD-10 - Z00.00) -Falls: none-ADLs: independent with all activities, continues to drive -HCS: has living will, POA paperwork. -Vision/dental: UTD on regular exams-Smoking/alco hol: smokes cigar rarely; 1 glass of wine occasionally. -Depression screening: negative -Aged out of screenings-Vaccine s: UTD on PCV, Tdap, Shingrix. Will get flu shot at end of October. 01/04/2023 Other Plan Of Treatment Pending Test Test Name Order Date Holter Monitor : Event Recorder 09/02/19 19 INFLUENZA A&B 05/29/2011 M-Basic Metabolic Panel 08/01/2018 M-Hemoglobin A1C 09/19/2019 Future Test Test Name Order Date Comp. Metabolic Panel (14) 03/11/2022 TSH 03/11/2022 CBC With Differential/Platelet 3 Lipid Panel 03/11/2022 Next Appt Details Provider Name:Merrill Mendoza, 12/30/2023 09:30:00 AM, [address] [place] [address], [phone], Insurance Providers Payer Name Payer Address Payer Phone Subscriber Number Group Number Insured Name Patient Relationship to Insured Coverage Start Date Coverage End Date [employer] DUAL [address] [address] [place] [id number] Dioni Vanessa Self - patient is the insured Medical (General) History Medical History History ICD Code HTN HLD acquired hypothyroidism BPH A fib Surgical History Surgery Date(Month/Year) cardiac stents x2 1997 cataract (right, left was done several y ears ago) 2019 eye injections for macular degeneration Hospitalization History Reason Date(Month/Year) cardiac 08/2018 above
--- OUTSIDE RECORDS SUMMARY | 2023-10-14 14:56 | XMS_ITS ---
Author Organization [facility] Address [address] [place] [address] Care Team Providers Care It Field Technician Name Role Phone Rjei Merrill Primary Care Provider REASON FOR VISIT med refill Medications Medication SIG (Take, Route, Fr equency, Duration) Notes Start Date End Date Status amLODIPine 5 mg 1 tab(s) orally once a day for 90 Active Encounters Encounter Location Date Provider Diagnosis [address] [address] 03/08/2023 Merrill Janeecindy Plan Of Treatment Medication Medication Name Sig Start Date Stop Date Notes amLODIPine 5 mg 1 tab(s) orally once a day for 90 Next Appt Details Provider Name:Merrill Mendoza, 12/30/2023 09:30:00 AM, [address] [place] [address], [phone], Progress Notes * Dioni FLORENCE ByronDOB:[birth year] (87 yo M)Acc No.[id number]:03/08/2023 Patient:?Dioni FLORENCE :1935???Age:87 Y???Sex:Male Address:[address] [place] [address] * Refills? Refill amLODIPine tablet, 5 mg, orally, 90, 1 tab(s), once a day, 90, Refills=0 * true * Date:? Generated for Printi ng/Faxing/eTransmitting on:?10/14/2023 02:55 PM EDT
--- OUTSIDE RECORDS SUMMARY | 2023-10-14 14:56 | XMS_ITS ---
Author Organization [facility] Address [address] [place] [address] Care Team Providers Care Oil Scout Name Role Phone Merrill Mendoza Primary Care Provider [phone] Allergies No Known Allergies Results Component Value Reference Range Notes THYROID PANEL WITH TSH (7444 ) Reviewed date:09/29/2023 02:18:15 PM Interpretation: Performing Lab:[facility] [place], CleanSlateLichKB[address] Aldo Jaramillo Notes/Report: NON-FASTING; NON-FASTING; NON-FASTING; NON-FASTING; NON-FAST FASTING:YES FASTING: YES T3 UPTAKE 36 22-35 % T4 (THYROXINE), TOTAL 9.2 4.9-10.5 mcg/dL FREE T4 INDEX (T7) 3.3 1.4-3.8 TSH 0.62 0.40-4.50 mIU/L LIPID PANEL, STANDARD (7600) Reviewed date:09/29/2023 02:18:15 PM Interpretation: Performing Lab:[facility] [employer] [id number]xx, CleanSlateNqtnDG[address] Aldo Jaramillo Notes/Report: NON-FASTING; NON-FASTING; NON-FASTING; NON-FASTING; [...] of LDL-C. Thad SS et al. KARI. 2013;310(81): 5570-1893 (http://education.[employer].ClickDiagnostics/faq/QUH727) CHOL/HDLC RATIO 3.6 <5.0 (calc) NON HDL CHOLESTEROL 113 <130 mg/dL (calc) For patients with diabetes plus 1 major ASCVD risk factor, treating to a non-HDL-C goal of <100 mg/dL (LDL-C of <70 mg/dL) is considered a therapeutic option. COMPREHENSIVE METABOLIC PANE Nicholas (76042) Reviewed date:09/29/2023 02:18:15 PM Interpretation: Performing Lab:[facility] [address] [facility], [place] [id number] Aldo Jaramillo Notes/Report: NON-FASTING; NON-FASTING; NON-FASTING; NON-FASTING; [...] 9) Reviewed date:09/29/2023 02:18:15 PM Interpretation: Performing Lab:[facility], [facility] [id number] [facility], [facility] HospitalCbxaKJ[address] Aldo Jaramillo Notes/Report: NON-FASTING; NON-FASTING; NON-FASTING; NON-FASTING; NON-FAST FASTING:YES FASTING: YES WHITE BLOOD CELL COUNT 8.7 3.8-10.8 Thousand/ uL RED BLOOD CELL COUNT 5.23 4.20-5.80 Million/uL HEMOGLOBIN 16.8 13.2-17.1 g/dL HEMATOCRIT 50.9 38.5-50.0 % MCV 97.3 80.0-100.0 fL MCH 32.1 27.0-33.0 pg MCHC 33.0 32.0-36.0 g/dL RDW 13.7 11.0-15.0 % PLATELET COUNT 247 140-400 Thousand/uL MPV 10.3 7.5-12.5 fL ABSOLUTE NEUTROPHILS 5290 [id number] cells/uL ABSOLUTE LYMPHOCYTES 2506 850-3900 cells/uL ABSOLUTE MONOCYTES 774 200-950 cells/uL ABSOLUTE EOSINOPHILS 104 15-500 cells/uL ABSOLUTE BASOPHILS 26 0-200 cells/uL NEUTROPHILS 60.8 LYMPHOCYTES 28.8 MONOCYTES 8.9 EOSINOPHILS 1.2 BASOPHILS 0.3 PSA, TOTAL (5363) Reviewed date:09/29/2023 02:18:15 PM Interpretation: Performing Lab:[facility] [address] [facility], [facility] HospitalLwnnXJ[address] Aldo Jaramillo Notes/Report: NON-FASTING; NON-FASTING; NON-FASTING; NON-FASTING; NON-FAST FASTING:YES FASTING: YES PSA, TOTAL 2.10 < OR = 4.00 ng/mL The total PSA value from this assay system is standardized against the WHO standard. The test result will be approximately 20% lower when compared to the equimolar-standardized total PSA (Thang [place]). Comparison of serial PSA results should be interpreted with this fact in mind. This test was performed using the Siemens chemiluminescent method. Values obtained from different assay methods cannot be used interchangeably. PSA levels, regardless of value, should not be interpreted as absolute evidence of the presence or absence of disease. REASON FOR VISIT annual checkup, labs - is fasting Medications Medication SIG (Take, Route, Frequency, Duration) [...] a day for 90 days prn Active Levothyroxine Sodium 125 mcg (0.125 mg) 1 tab(s) orally once a day for 90 Active Metoprolol Tartrate 50 mg 1 tab(s) orall y 2 times a day for 90 days Active amLODIPine 5 mg 1 tab(s) orally once a day for 90 days Active tamsulosin 0.4 mg 1 cap(s) orally once a day for 90 Active ketoconazole topical 2% 1 giovanna applied to pically once a day for 14 day(s) 07/14/2021 Active Senokot S 50 mg-8.6 mg 2 tab(s) orally o nce a day (at bedtime) for 30 days 02/26/2022 Active Vital Signs Temperature 98 degrees Fahrenheit 09/28/2023 Blood pressure systolic 122 mm Hg 09/28/19 24 Blood pressure diastolic 72 mm Hg 024 Heart Rate 54 /min 09/28/2023 Height 68.5 in 09/28/2023 Weight 187 lbs 09/28/2023 BMI 28.02 kg/m2 09/28/2023 Encounters Encounter Location Date Provider Diagnosis [address] [address] 09/28/2023 Merrill Mendoza Hypertension, essent ial I10 ; Acquired hypothyroidism E03.9 ; Benign prostatic hyperplasia with lower urinary tract symptoms N40.1 ; Hyperlipemia, idiopathic familial E78.5 ; Paroxysmal atrial flutter I48.92 ; Atherosclerosis of [place] coronary artery of [place] heart without angina pectoris I25.10 ; Elevated PSA R97.20 and Routine medical exam Z00.00 Assessments Encounter Date Diagnosis (ICD Code) Assessment Notes Treat ment Notes Treatment Clinical Notes 09/28/2023 Hypertension, essential (ICD-10 - I10) -Chronic, well controlled -No changes to medications today 09/28/2023 Acquired hypothyroidism (ICD-10 - E03.9) -Clinically euthyroid -Will recheck TSH today 09/28/2023 Benign prostatic hyperplasia with lower urinary tract symptoms (ICD-10 - N40.1) -Chronic, stable symptoms -Continue flomax -Recheck PSA today 09/28/2023 Hyperlipemia, idiopathic familial (ICD-10 - E78.5) -Recheck lipid panel -Continue atorvastatin 09/28/2023 Paroxysmal atrial flutter (ICD-10 - I48.92) -Chronic, asymptomatic, in sinus rhythm on exam -Continue metoprolol 09/28/2023 Atherosclerosis of [place] coronary artery of [place] heart without angina pectoris (ICD-10 - I25.10) -Stable, denies CP, SOA -Continue aspirin and statin 09/28/2023 Elevated PSA (ICD-10 - R97.20) 09/28/2023 Routine medical exam (ICD-10 - Z00.00) -Falls: none-ADLs: independent with all activities, continues to drive -HCS: has living will, POA paperwork. -Vision/dental: UTD on regular exams-Smoking/alco hol: smokes cigar rarely; 1 glass of wine occasionally. -Depression screening: negative -Aged out of screenings-Vaccine s: UTD on PCV, Tdap, Shingrix. Will get flu shot at end october. Plan Of Treatment Treatment Notes Assessment Notes Hypertension, essential -Chronic, well controlled -No changes to medications today Acquired hypothyroidism -Clinically euthyroid -Will recheck TSH today Benign prostatic hyperplasia with lower urinary tract symptoms -Chronic, stable symptoms -Continue flomax -Recheck PSA today Hyperlipemia, idiopathic familial -Recheck lipid panel -Continue atorvastatin Paroxysmal atrial flutter -Chronic, asymptomatic, in sinus rhythm on exam -Continue metoprolol Atherosclerosis of [place] co ronary artery of [place] heart without angina pectoris -Stable, denies CP, SOA -Continue aspirin and statin Routine medical exam -Falls: none-ADLs: independent with all activities, continues to drive -HCS: has living will, POA paperwork. -Vision/dental: UTD on regular exams-Smoking/alcohol: smokes cigar rarely; 1 glass of wine occasionally. -Depression screening: negative -Aged out of screenings-Vaccines: UTD on PCV, Tdap, Shingrix. Will get flu shot at end october. Next Appt Details Follow Up: 3 Months, Reason: Provider Name:Merrill Mendoza 12/30/2023 09:30:00 AM, [address] [facility], [place], [address], Progress Notes * Dioni VANESSA BDOB:[birth year] (87 yo M)Acc No.[id number]:09/28/2023 Progress Notes Patient:?Dioni VANESSA Provider:?Merrill Mendoza MD :1935???Age:87 Y???Sex:Male Bao e:09/28/2023 Address:[address] [place], [place] [id number] Subjective: * Chief Complaints: * ???1. Annual checkup. 2. Lab s - is fasting. * HPI: ???gen:? Mr. Vanessa is an 87 yo male with PMH of HTN, A fib, BPH, HLD, hypothyrodiism who presents for his medicare wellness visit. ?1. HTN: BP today 122/72, Denies CP, SOA, headaches, vision changes. ?2. Hypothyroidism: Denies unintentional weight changes, constipation, diarrhea, palpitations, hair/skin/nail changes. ?3. BPH: Has nocturia that is stable and is at baseline. Has no other urinary symptoms, feels like the flomax continues to help. ?4. A flutter: Denies palpitations, dizziness, syncope/presyncope. Compliant with metoprolol. ?5. MCW: See A/P for full evaluation. * ROS:?FUNCTIONAL STATUS:?ADLS?Independent for all ADL/IADL.?RESPIRATORY:?Reviewed, No Symptoms Reported:?Yes.?CARDIOLOGY:?Reviewed, No Symptoms Reported:?Yes.?CONSTITUTIONAL:?Reviewed, No Symptoms Reported:?Yes.? * Medical History:?HTN, HLD, A cquired hypothyroidism, BPH, A fib. * Surgical History:?cardiac st ents x2 1997, cataract (right, left was done several years ago) 2018, eye injections for macular degeneration . * Hospitalization/Major Diagno stic Procedure:?above , cardiac 08/2018. * Family History:?Father: dece ased.?Mother: , brain aneurysm.?Paternal Grand Father: .?Paternal Grand Mother: .?Maternal Grand Father: .?Maternal Grand Mother: .?Siblings: , epilepsy.?Children: alive.?1 brother(s) . 2 daughter(s) . .? * Social History:?Smoking?Are you a:: former smoker , How long has it been since you last smoked?: > 10 years.?Recreational drug use: no. Exercise: yes. Caffeine: 3 cups coffee daily. Living Will: Yes. Alcohol: socially, wine occasionally. Travel outside [place]: no. Occupation: retired. * Medications:?Taking ICaps AR EDS Antioxidant Multiple Vitamins and Minerals tablet as directed orally , Taking aspirin 81 mg tablet 1 tab(s) orally once a day , Taking omeprazole 20 mg enteric coated tablet 1 tab(s) orally once a day , Notes to Pharmacist: prn, Taking ketoconazole topical 2% cream 1 giovanna applied topically once a day , Taking Senokot S 50 mg-8.6 mg tablet 2 tab(s) orally once a day (at bedtime) , Taking Metoprolol Tartrate 50 mg tablet 1 tab(s) orally 2 times a day , Taking Levothyroxine Sodium 125 mcg (0.125 mg) tablet 1 tab(s) orally once a day , Taking tamsulosin 0.4 mg capsule 1 cap(s) orally once a day , Taking amLODIPine 5 mg tablet 1 tab(s) orally once a day , Taking Atorvastatin Calcium 20 mg tablet 1 tab(s) orally once a day , Discontinued Fish oil 1000 mg as directed po QD , Discontinued MiraLax - powder for reconstitution as directed orally once a day , Discontinued triamcinolone topical 0.1% ointment 1 giovanna applied topically 3 times a day , Medication List reviewed and reconciled with the patient * Allergies:?N.K.D.A. Objective: * Vitals:?Nurse: umberto, Pain: 0, Temp: 98, RR: 20, HR: 54, BP: 122/72, Ht: 68.5, Wt: 187, BMI:28.02. * Examination: ???General Examination: ?General?Pleasant and Cooperative, NAD on RA,.?Oral cavity:?no lesions, OMMP, Good Dentition.?Chest:?normal shape and expansion.?Heart:?Regular Rate and Rhythm, 1/6 systolic?murmur, rubs or gallops.?HEENT:?pharynx and tonsils normal, TM's with small air/fluid levels, PND.?Lungs:?LCTAB, No wheezes, crackles or rhonchi, Good air movement,.?Abdomen:?Soft, NTND, BSNA.?Neurologic Exam:?no focal signs, Alert and oriented x 3.?Skin:?without acute rashes.?Peripheral pulses:?normal (2+) bilaterally.?Extremities:?no edema.?neck?Supple without Meningeal Signs, No LAD, No JVD, No Goiter, No Bruit,.?Psych?Normal Mood/Affect.? Assessment: * Assessment: 1.?Hypertension, essential - I10 (Primary)?2.?Acquired hypothyroidism - E03.9?3.?Benign prostatic hyperplasia with lower urinary tract symptoms - N40.1?4.?Hyperlipemia, idiopathic familial - E78.5?5.?Paroxysmal atrial flutter - I48.92?6.?Atherosclerosis of [place] coronary artery of [place] heart without angina pectoris - I25.10?7.?Elevated PSA - R97.20?8.?Routine medical exam - Z00.00? Plan: * Treatment: 2.?Acquired hypothyroidism?LAB: THYROID PANEL WITH TSH (7444) ?LAB: LIPID PANEL, STANDARD (7600) ?LAB: COMPREHENSIVE METABOLIC PANEL (63243) ?LAB: CBC (INCLUDES DIFF/PLT) (6399) ?LAB: PSA, TOTAL (5363) Notes: -Clinically euthyroid -Will recheck TSH today?? 3.?Benign prostatic hyperpla altagracia with lower urinary tract symptoms? Notes: -Chronic, stable symptoms -Continue flomax -Recheck PSA today?? 4.?Hyperlipemia, idiopathic familial?LAB: THYROID PANEL WITH TSH (7444) ?LAB: LIPID PANEL, STANDARD (7600) ?LAB: COMPREHENSIVE METABOLIC PANEL (52717) ?LAB: CBC (INCLUDES DIFF/PLT) (6399) ?LAB: PSA, TOTAL (5363) Notes: -Recheck lipid panel -Continue atorvastatin ?? 5.?Paroxysmal atrial flutter ? Notes: -Chronic, asymptomatic, in sinus rhythm on exam -Continue metoprolol?? 6.?Atherosclerosis of [place] coronary artery of [place] heart without angina pectoris?LAB: THYROID PANEL WITH TSH (7444) ?LAB: LIPID PANEL, STANDARD (7600) ?LAB: COMPREHENSIVE METABOLIC PANEL (07386) ?LAB: CBC (INCLUDES DIFF/PLT) (6399) ?LAB: PSA, TOTAL (5363) Notes: -Stable, denies CP, SOA -Continue aspirin and statin ?? 7.?Elevated PSA?LAB: THYROID PANEL WITH TSH (7444) ?LAB: LIPID PANEL, STANDARD (7600) ?LAB: COMPREHENSIVE METABOLIC PANEL (92997) ?LAB: CBC (INCLUDES DIFF/PLT) (6399) ?LAB: PSA, TOTAL (5363) 8.?Routine medical exam? Notes: -Falls: none-ADLs: independent with all activities, continues to drive -HCS: has living will, POA paperwork. -Vision/dental: UTD on regular exams-Smoking/alcohol: smokes cigar rarely; 1 glass of wine occasionally. -Depression screening: negative -Aged out of screenings-Vaccines: UTD on PCV, Tdap, Shingrix. Will get flu shot at end of October. ?? * Procedure Codes:?G0439 ANNUA L WELLNESS VST; PPS SUBSQT VST, 1170F FUNCTIONAL STATUS ASSESSMENT, G8420 BMI documented as normal, no follow up required., G8510 NEGATIVE SCREENING F/U NOT REQUIRED, G9903 Pt scrn tbco id as non user, 1036F TOBACCO NON-USER, G9744 PATIENT NOT ELIG D/T ACTIVE DX HTN * Preventive Medicine:? ??GIOVANNA Screening:?Falls: Future screening for fall risks?Have you had two or more falls in the past year??No,?Have you had any falls with injury in the past year??No.? ??Depression Screening:?PHQ 2?Feeling down depressed or hopeless?No.? ??Immunizations:?Tetanus?.?Pneumococcal?.?Influenza?.?Shingrix?UTD.? ??Screening / Special Tests:?Fall risk screening?Fall Risk Assessment:?No falls in the past year.?Alcohol Screen?Did you have a drink containing alcohol in the past year??No.? * Follow Up:?3 Months * * Sign off status: Completed true * Provider:?Merrill Mendoza MD Date :?09/28/2023 Generated for Tiffany butcher/Eliana/eTransmitting on:?10/14/2023 02:55 PM EDT History and Physical Notes * Examination Category Sub-Category Detail Notes General Examination HEENT: pharynx and tonsils normal, TM's with small air/fluid levels, PND Heart: Regular Rate and Rhy thm, 1/6 systolic murmur, rubs or gallops Lungs: LCTAB, No wheezes, c rackles or rhonchi, Good air movement, Abdomen: Soft, NTND, BSNA Extremities: no edema Skin: without acute rashes Neurologic Exam: no focal signs, Aler t and oriented x 3 Oral cavity: no lesions, OMMP, Go od Dentition Peripheral pulses: normal (2+) bilatera lly Chest: normal shape and exp ansion neck Supple without Menin geal Signs, No LAD, No JVD, No Goiter, No Bruit, General Pleasant and Coopera tive, NAD on RA, Psych Normal Mood/Affect
--- OUTSIDE RECORDS SUMMARY | 2023-10-14 14:56 | XMS_ITS ---
Author Organization [facility] Address [address] [place] [address] Care Team Providers Care Wood Furniture Assembler Name Role Phone Merrill Mendoza Primary Care Provider REASON FOR VISIT Refills Medications Medication SIG (Take, Route, Frequency, Duration) Notes Start Date End Date Status Atorvastatin Calcium 20 mg 1 tab(s) oral ly once a day for 90 Active Encounters Encounter Location Date Provider Diagnosis [address] [address] 03/03/2023 Merrillshiv Mendoza Plan Of Treatment Medication Medication Name Sig Start Date Stop Date Notes Atorvastatin Calcium 20 mg 1 tab(s) oral ly once a day for 90 Next Appt Details Provider Name:Merrill Mendoza, 12/30/2023 09:30:00 AM, [address] [place] [address], [phone], Progress Notes * Dioni FLORENCE ByronDOB:[birth year] (87 yo M)Acc No.[id number]:03/03/2023 Patient:?Dioni FLORENCE :1935???Age:87 Y???Sex:Male Address:[address] [place] [phone] * Refills? Refill Atorvastatin Calcium tablet, 20 mg, orally, 90, 1 tab(s), once a day, 90, Refills=0 * true * Date:? Generated for Printi ng/Fapolag/eTransmitting on:?10/14/2023 02:55 PM EDT
[2023-10-14 15:37] LABS: Lactic Acid 1.5 mmol/L (0.7-2.1)
[2023-10-14 15:52] LABS: Troponin I < 0.01 ng/ml (0.00-0.034)
[2023-10-14] MEDS: TAMSULOSIN 0.4MG CAPSULE 0.4 MG PO (20:24)
[2023-10-14] MEDS: METOPROLOL TARTRATE 50MG TABLET 50 MG PO (20:24)
[2023-10-14] MEDS: ATORVASTATIN 20MG TABLET 20 MG PO (20:24)
--- NOTE | 2023-10-14 22:08 | EXP.EVENT.NO ---
Came to question the patient about the mulch he was using. Patient did not have his own mulch pile but was using commercial mulch he was on his third bag. Noting that the bags of mulch had been left out in the sun. That he was not on his knees but using a tool when suddenly becoming lightheaded had to grab onto the rail of the porch and the next thing he knew he was waking up he does not know how long he was out.. Patient is stable at this time long history of A-fib, question potential contribution to this event hot sun using mulch that may be off Kassing methanol and ethylene, that may have overcome him with possible dehydration. exam, patient is alert oriented having no difficulty talking to me and giving me a very good history plan, to continue to monitor overnight. To rule out cardiac/abnormal rhythm versus external toxin and heat from today with the temperature being 88 degrees with really no wind., Patient made aware of the off gassing of mulch.
[2023-10-15] VITALS (28 sets, daily range): BP systolic 97–175; BP diastolic 56–99; PULSE 46–129; RESP 14–22; TEMP 36.8–37.1; O2SAT 92–97; BMI 29.9
--- NOTE | 2023-10-15 06:44 | PC.NURSE ---
End of shift: Patient rested well throughout shift. Continued on Amio gtt per APR. Rhythm is Afib and at times converts to Sinus. Patient is bradycardic at times with rates from 50-100. NAD otherwise.
[2023-10-15 07:24] LABS: Eosinophils # 0.1 K/mm3 (0.0-0.4); Hematocrit 45.8 % (42.0-52.0); Monocytes # 0.7 K/mm3 (0.1-1.0); White Blood Count 9.1 K/mm3 (4.8-10.8)
[2023-10-15] MEDS: METOPROLOL TARTRATE 50MG TABLET 50 MG PO ×2 (07:30→20:19)
[2023-10-15] MEDS: LEVOTHYROXINE 125MCG (0.125MG) TAB 125 MCG PO (07:30)
[2023-10-15] MEDS: APIXABAN 5MG TABLET 5 MG PO ×2 (07:30→20:22)
[2023-10-15 07:35] LABS: Blood Urea Nitrogen 19 mg/dl (9-20); Calcium 8.5 mg/dl (8.4-10.2); Carbon Dioxide 22 mmol/L (22.0-30.0); Chloride 111 mmol/L (98-107); Creatinine Clearance Estimated 52 mL/min (50-200); Estimated Glomerular Filt Rate 52 ml/min (>60); GFR (African American) 63 ML/MIN (>60); Glucose 104 mg/dl (74-100); Sodium 137 mmol/L (136-145)
[2023-10-15 08:02] LABS: Basophils % 0.3 % (0.1-2.0); Lymphocytes # 2.4 K/mm3 (0.7-4.5); Lymphocytes % 25.8 % (10-50); Mean Corpuscular HGB Conc 31.8 g/dL (31.8-35.4); Mean Corpuscular Hemoglobin 32.4 pg (27.0-31.2); Mean Corpuscular Volume 101.9 fl (80-94); Mean Platelet Volume 8.3 fl (7.4-10.4); Monocytes % 7.6 % (1.7-9.3); Neutrophils # 5.9 K/mm3 (1.8-7.8); Neutrophils % 65.2 % (37.0-80.0); Platelet Count 232 K/mm3 (142-424); Red Cell Distribution Width 14.6 % (11.5-17.5)
[2023-10-15 08:13] LABS: Hemoglobin 14.5 g/dL (14.1-18.0)
[2023-10-15] MEDS: AMIODARONE 200MG TABLET 200 MG PO ×2 (12:18→20:18)
--- NOTE | 2023-10-15 12:39 | IR_ITS ---
APPROVED REPORT Patient Location: Inpatient [employer] Farm Manager: SHREE Adler RT (R) PROCEDURES Left heart catheterization Left ventriculogram Selective coronary angiogram Drug-eluting stent deployment to the mid and distal LAD in a contiguous manner Informed consent was obtained prior to the procedure. COMPLICATIONS NONE Estimated Blood Loss: LESS THAN 10 ML TECHNIQUE One percent lidocaine used to anesthetize the right anterior aspect of the wrist. The right radial artery was accessed via the Seldinger technique. A 6 Spanish sheath was placed in the right radial artery. 2.5 mg of Verapamil, 800 mcg of nitroglycerin, 1mg Lidocaine and 5000 U Heparin were given through the arterial sheath. The papa catheter was also used to perform left heart catheterization, left ventriculogram and selective coronary angiogram. At the end of the diagnostic angiogram therapeutic heparin was administered giving a therapeutic ACT and the guide catheter was placed in left main artery followed by Choice PT extra-support wire placed distally. A 3.5 x 26 mm Cristian frontier stent was deployed at 16 brody reducing the stenosis to 0%. An additional 2.5 x 38 mm Winigan frontier stent was placed distally and deployed at 18 brody. An additional 3 mm x 30 mm Winigan frontier stent was placed in between the 2 stents connecting the 2 stents and deployed at 20 brody reducing the stenosis. NATALYA II flow was present at the beginning of the procedure with NATALYA-3 flow at the end of the procedure. At the end of procedure the apparatus was removed the sheath was removed and hemostasis was achieved using TR banding patient was transferred to the postop putting in stable condition ANGIOGRAPHIC RESULTS The left main artery Normal The left anterior descending artery Has an ostial 30% stenosis followed by a stent in the midsegment which has 60% concentric in-stent restenosis followed by an additional stent in the mid to distal LAD which has diffuse 70 to 80% concentric in-stent restenosis The circumflex artery Is nondominant and has mild 10% luminal irregularities The right coronary artery Is a dominant vessel and has mild to moderate proximal to mid vessel vascular ectasia with diffuse 10% luminal regularities The LAMA ventriculogram reveals Not performed The left ventricular end-diastolic pressure Not measured IMPRESSION Severe LAD disease as described above with successful stenting of the mid to distal segment reducing severe stenosis to 0% PLAN 1. Eliquis Plavix and aspirin for 30 days then discontinue aspirin and use Plavix and Eliquis 2. LifeVest prior to discharge 3. Standard therapy for systolic heart failure 4. Standard therapy for ischemic heart disease 5. LDL less than 55 to be achieved with high intensity statin Electronically signed by : Alcides Mccray MD 10/15/2023 15:47:23
--- NOTE | 2023-10-15 13:20 | EXP.CARD.PN ---
Subjective Subjective Date: 10/15/23 Time: 09:00 Interval history: Echo shows EF 25 to 30% which is a new diagnosis for patient. He remains largely stable in sinus rhythm on amiodarone. We discussed left heart cath and he would like to proceed. Exam Data for Last 24 hours Vital signs and Labs for Last 24 Hours: Temp Pulse Resp BP Pulse Ox O2 Del Method 98.5 F 79 22 140/86 95 Room Air 10/15/23 13:00 10/15/23 12:00 10/15/23 12:00 10/15/23 12:00 10/15/23 12:00 10/15/23 12:00 Laboratory Results - last 24 hr 10/14/23 14:50: Lactate 1.5, Troponin I < 0.01 10/15/23 05:47: WBC 9.1, RBC 4.50 L, Hgb 14.5 D, Hct 45.8, MCV 101.9 H, MCH 32.4 H, MCHC 31.8, RDW 14.6, Plt Count 232, MPV 8.3, Neut % (Auto) 65.2, Lymph % (Auto) 25.8, [place] % (Auto) 7.6, Eos % (Auto) 1.0, Baso % (Auto) 0.3, Neut # (Auto) 5.9, Lymph # (Auto) 2.4, [place] # (Auto) 0.7, Eos # (Auto) 0.1, Baso # (Auto) 0.0, Sodium 137, Potassium 4.0, Chloride 111 H, Carbon Dioxide 22, Anion Gap 8.0, BUN 19 D, Creatinine 1.30 H, Estimated Creat Clear 52, Estimated GFR 52 L, Est GFR ( Amer) 63, Glucose 104 H D, Calcium 8.5, Magnesium 2.0 I & O for Last 24 hours: Intake & Output 10/12/23 10/13/23 10/14/23 10/15/23 23:59 23:59 23:59 23:59 Intake Total 1241.18 / 2561.18 1979.629 / 1979.629 Output Total 200 / 1050 1100 / 1100 Balance 1041.18 / 1511.18 880.629 / 880.629 Weight 196 lb 12.8 oz 196 lb 13.965 oz Constitutional Constitutional: no acute distress and cooperative *Routine HEENT Exam Eye: Present PERRL *Routine Respiratory Exam Respiratory: Present CTA bilaterally; Absent accessory muscle use, wheezes or crackles *Routine Cardiovascular Exam Cardiovascular: Present RRR, Normal S1 and Normal S2; Absent murmur, gallop or rubs *Routine Abdominal Exam Abdominal: Present soft; Absent tenderness *Routine Extremities Exam Extremities: Present pulses intact; Absent cyanosis or edema *Routine Skin Exam Skin: Present intact; Absent erythema or wounds *Routine Neurological Exam Neurological: Present alert and oriented X3 Routine Psychiatric Exam Psychiatric: Present cooperative Progress Note: A&P Assessment and plan (1) Atrial flutter: Status: Acute (2) Syncope and collapse: Status: Acute (3) History of coronary artery stent placement: Status: Chronic (4) HFrEF (heart failure with reduced ejection fraction): Status: Acute Assessment and Plan Assessment and Plan for All Diagnoses:: A-flutter with RVR - known dx since 2019 but untreated - likely exacerbated by dehydration and hypotension - spontaneous conversion with hydration and rate control - CHADS-VASC = 4, pt agreeable to change ASA to OAC - continue hydration efforts and BB - pt still having episodes of a-flutter, will add Amiodarone Syncope - likely secondary to Aflutter, possible SSS/pause - continue instructor adjunct surgical technician - ECHO shows EF 25% CAD, [place] s/p CABG 1987? (no sternal wires on CXR) - CCS = 0 - change ASA to Eliquis - Cont BB and Statin - ECHO shows EF 25% - pt agreeable to [facility] Dehydration/JOAN - Cr up from 1.0 to 1.5 out working in the sun - hydrate, trend labs HFrEF - new dx this admission with EF 25% - likely ischemic etiology - on Toprol, Entresto, Farxiga - avoid salt - monitor for vol overload - pt agreeable to LifeVest Addendum: [facility] today IMPRESSION Severe LAD disease as described above with successful stenting of the mid to distal segment reducing severe stenosis to 0% PLAN 1. Eliquis Plavix and aspirin for 30 days then discontinue aspirin and use Plavix and Eliquis 2. LifeVest prior to discharge 3. Standard therapy for systolic heart failure 4. Standard therapy for ischemic heart disease 5. LDL less than 55 to be achieved with high intensity statin
[2023-10-15] MEDS: MIDAZOLAM HCL 1MG/1ML 5ML VIAL 1 MG IV (13:45)
[2023-10-15] MEDS: LIDOCAINE 1% 10ML MDV 20 ML IJ (13:45)
[2023-10-15] MEDS: HEPARIN 1,000 UNITS/ML 10ML VIAL (CATH LAB) 10000 UNIT IV (13:45)
[2023-10-15] MEDS: FENTANYL 100MCG/2ML VIAL 50 MCG IV (13:45)
[2023-10-15] MEDS: diphenhydrAMINE 50MG/ML VIAL 50 MG IV (13:46)
[2023-10-15] MEDS: HEPARIN 1,000 UNITS/500ML NS (CATH LAB) 3000 UNIT IV (13:50)
[2023-10-15] MEDS: CLOPIDOGREL 300MG TABLET 600 MG PO (14:21)
[2023-10-15] MEDS: VERAPAMIL 2.5MG/ML 2ML VIAL 2.5 MG IV (14:35)
[2023-10-15] MEDS: 0.9 % SODIUM CHLORIDE 500 ML 25 ML IV (14:35)
[2023-10-15] MEDS: IOPAMIDOL-370 (76%);100ML BOTTLE 90 ML IV (14:43)
[2023-10-15 14:47] LABS: CATHL Activated Clotting Time > 400 SEC (74-125)
[2023-10-15] MEDS: DAPAGLIFLOZIN PROPANEDIOL 10 MG TABLET PO (15:04)
[2023-10-15] MEDS: SACUBITRIL/VALSARTAN 24-26MG TABLET 1 EACH PO ×2 (15:04→20:20)
--- NOTE | 2023-10-15 15:18 | PC.NURSE ---
Patient able to maintain nsr and amio drip stopped per cardiology. Patient would then become tachycardic 90-110 rate controlled afib. Patient would then convert back to a nsr with heart rate 50-60's. Patient went for a left heart catheterization. Patient alert and oriented times 4 when back on floor and remained nsr with heart rate upper 40's to 50's. TR band in place, radial pulse weak in right hand, no hematoma noted. VS stable and patient on room air. No pain reported.
--- NOTE | 2023-10-15 16:06 | PC.NURSE ---
attempted to remove tr band at 1600 as all air was taken out and no sign of bleeding at site. Once TR band removed, site began to bleed, tr band reapplied and 4 ml air added. Site not bleeding after tr band reapplied
--- NOTE | 2023-10-15 17:50 | EXP.ACUTE.PN ---
Subjective *Date: 10/15/23 *Time: 17:50 Interval history: Patient heart rate better controlled on amiodarone over past 16 hours. Patient transition to by mouth amiodarone from Amio drip today. Denies palpitations. Echocardiogram shows dramatically decreased ejection fraction. Denies chest pain, fevers, chills overnight. Has suffered from intermittent palpitations. Admits to white blood pressure swings at home at baseline. Medical Exam Vital signs and Labs for Last 24 Hours: Vital Signs Temp Pulse Pulse Resp BP Pulse Ox O2 Del Method 10/15/23 17:00 Room Air 10/15/23 16:55 51 L 22 134/75 97 Room Air 10/15/23 16:25 118 H 22 116/86 97 Room Air 10/15/23 16:00 50 L 10/15/23 16:00 98.3 F 10/15/23 15:55 60 20 109/70 L 95 Room Air 10/15/23 15:25 60 18 109/69 L 93 L Room Air 10/15/23 15:10 46 L 20 106/71 L 95 Room Air 10/15/23 15:00 Room Air 10/15/23 14:55 53 L 20 100/66 L 96 Room Air 10/15/23 14:45 80 18 111/76 10/15/23 14:25 92 H 16 103/56 L 92 L Room Air 10/15/23 14:20 79 16 101/64 L 96 Room Air 10/15/23 14:15 87 18 115/62 95 Room Air 10/15/23 14:10 86 80 16 99/61 L 94 L Room Air 10/15/23 13:00 98.5 F 10/15/23 12:50 Room Air 10/15/23 12:00 60 10/15/23 12:00 79 22 140/86 95 Room Air 10/15/23 10:54 Room Air 10/15/23 10:15 66 22 131/87 93 L Room Air 10/15/23 10:00 64 20 175/99 H 94 L Room Air 10/15/23 08:55 Room Air 10/15/23 08:00 110 H 10/15/23 08:00 98.6 F 10/15/23 08:00 104 H 22 114/76 97 Room Air 10/15/23 07:50 Room Air 10/15/23 06:00 89 14 121/72 95 Room Air 10/15/23 04:00 60 10/15/23 04:00 71 14 111/69 96 Room Air 10/15/23 02:00 67 14 97/61 L 94 L Room Air 10/15/23 00:00 50 L 10/15/23 00:00 55 L 14 103/57 L 96 Room Air 10/14/23 22:00 62 14 113/72 95 Room Air 10/14/23 20:00 100 H 10/14/23 20:00 70 10/14/23 20:00 104 H 14 140/89 96 Room Air 10/14/23 19:00 Room Air 10/14/23 18:00 88 18 140/99 H 95 Room Air Intake and Output 10/15/23 10/15/23 10/15/23 07:59 15:59 23:59 Intake Total 1320 / 1980.629 660.629 / 1980.629 Output Total 850 / 1325 250 / 1325 225 / 1325 Balance 470 / 655.629 410.629 / 655.629 -225 / 655.629 Intake: Intake, Oral Amount 200 / 620 420 / 620 Intake, Total IV Amount 1000 / 1240.629 240.629 / 1240.629 Dex 5% in 0.45% NaCl 1,000 ml @ 1000 / 1000 100 mls/hr IV .Q10H [facility] Rx#: [id number] Infusion Intake 120 / 120 Amiodarone HCl 900 mg In 120 / 120 Dextrose 5 % in Water 500 ml @ 1 MG/MIN 34.533 mls/hr IV . Q15H1M [facility] Rx#:[id number] Output: Output, Urine Amount 850 / 1325 250 / 1325 225 / 1325 Other: Weight 89.3 kg Patient Weight 10/15/23 23:59 Weight 89.3 kg Laboratory Results - last 24 hr 10/15/23 05:47: WBC 9.1, RBC 4.50 L, Hgb 14.5 D, Hct 45.8, MCV 101.9 H, MCH 32.4 H, MCHC 31.8, RDW 14.6, Plt Count 232, MPV 8.3, Neut % (Auto) 65.2, Lymph % (Auto) 25.8, [place] % (Auto) 7.6, Eos % (Auto) 1.0, Baso % (Auto) 0.3, Neut # (Auto) 5.9, Lymph # (Auto) 2.4, [place] # (Auto) 0.7, Eos # (Auto) 0.1, Baso # (Auto) 0.0, Sodium 137, Potassium 4.0, Chloride 111 H, Carbon Dioxide 22, Anion Gap 8.0, BUN 19 D, Creatinine 1.30 H, Estimated Creat Clear 52, Estimated GFR 52 L, Est GFR ( Amer) 63, Glucose 104 H D, Calcium 8.5, Magnesium 2.0 10/15/23 13:47: Activated Clotting Time > 400 H* I & O for Labs for Last 24 Hours: Intake & Output 10/12/23 10/13/23 10/14/23 10/15/23 23:59 23:59 23:59 23:59 Intake Total 1241.18 / 2561.18 1980.629 / 1980.629 Output Total 200 / 1050 1325 / 1325 Balance 1041.18 / 1511.18 655.629 / 655.629 Weight 89.267 kg 89.3 kg 10/15/2023 left cardiac catheterization done IMPRESSION Severe LAD disease as described above with successful stenting of the mid to distal segment reducing severe stenosis to 0% PLAN 1. Eliquis Plavix and aspirin for 30 days then discontinue aspirin and use Plavix and Eliquis 2. LifeVest prior to discharge 3. Standard therapy for systolic heart failure 4. Standard therapy for ischemic heart disease 5. LDL less than 55 to be achieved with high intensity statin Radiology Reports for the Last 24 Hours: 10/15/2023 left cardiac catheterization done IMPRESSION Severe LAD disease as described above with successful stenting of the mid to distal segment reducing severe stenosis to 0% PLAN 1. Eliquis Plavix and aspirin for 30 days then discontinue aspirin and use Plavix and Eliquis 2. LifeVest prior to discharge 3. Standard therapy for systolic heart failure 4. Standard therapy for ischemic heart disease 5. LDL less than 55 to be achieved with high intensity statin 10/15/2023: CT brain ordered with results pending 10/15/2023 echocardiogram ejection fraction 25 to 30% 10/14/2023 chest x-ray: Atelectasis of the lung bases 10/14/2023 CTA chest: No pulmonary embolus Head: Present atraumatic and normocephalic ENT: Present normal exam and normal oropharynx Neck: Present normal inspection and full ROM Respiratory: Present CTA bilaterally and normal respiratory effort Cardiac: Present Reg Rate and Rhythm GI: Present soft and normal bowel sounds Rectal (male): Present deferred Extremities: Present normal inspection and full ROM Skin: Present intact and dry Assessment and Plan *Assessment and plan (1) HFrEF (heart failure with reduced ejection fraction): Status: Acute Category: Medical Code(s): I50.20 - Unspecified systolic (congestive) heart failure (2) Syncope and collapse: Status: Acute Category: Medical Code(s): R55 - Syncope and collapse (3) JOAN (acute kidney injury): Status: Acute Category: Medical Code(s): N17.9 - Acute kidney failure, unspecified (4) Atrial flutter: Status: Acute Category: Medical Code(s): I48.92 - Unspecified atrial flutter (5) Hypothyroidism: Status: Chronic Category: Medical Code(s): E03.9 - Hypothyroidism, unspecified (6) Hyperlipidemia: Status: Chronic Category: Medical Code(s): E78.5 - Hyperlipidemia, unspecified (7) CAD (coronary artery disease), [place] coronary artery: Status: Chronic Category: Medical Code(s): I25.10 - Atherosclerotic heart disease of [place] coronary artery without angina pectoris Plan Really nice 87-year-old with past medical history of hypertension, hyperlipidemia CAD with cardiac stents, hypothyroidism, BPH. Patient suffered from loss of consciousness yesterday, and presents to emergency room with atrial flutter on EKG/telemetry, and hypotension. Patient with echocardiogram done 10/14 showing EF 25 to 30%. Patient status post cardiac catheterization 10/14 showing severe LAD with successful stenting of the mid to distal segment LAD. Patient also suffering from paroxysmal atrial flutter tachybradycardia syndrome currently initiated on amiodarone 10/14/2023. Problems as listed below: New onset A flutter: ?10/14 transition to Eliquis today. Started on amiodarone gtt. 10/13 and transition to amiodarone by mouth today. ?10/13 Admit to stepdown, start heparin GTT, consult cardiology, start Lopressor 50 mg p.o. twice daily. Echocardiogram, serial troponins. Check TSH. Telemetry monitoring. Newly diagnosed severe CAD: ? 10/14 , echo shows EF decreased to 25 to 30%. Cardiac catheterization 10/14 showing severe LAD with stenting performed. Appreciate cardiology assistance! Start statin. Consider beta-sheryl therapy at time of hospital discharge. Patient require LifeVest prior to hospital disposition. Check hemoglobin A1c. Loss of consciousness likely due to atrial flutter: ? Order CT brain to rule out neurological structural abnormalities for loss of consciousness yesterday. Loss of consciousness most likely secondary to atrial flutter newly diagnosed. No signs of hypoxia in ED. Electrolytes relatively within normal limits. JOAN secondary to dehydration: ? Gentle hydration during hospitalization with extreme caution given new acute heart failure diagnosis with EF 25 to 30%. BPH: Continue home management Hypertension: Hold antihypertensive medicines while patient hypotensive Hyperlipidemia: Continue home management PPx: Heparin GTT CODE STATUS full FEN: Cardiac diet Disposition: If cardiology consult agrees hopefully within next 48 hours. Patient will require LifeVest given EF less than 30% at time of hospital disposition. Case discussed with patient, patient's , dietitian, case management, pharmacy, nursing staff by Dr. Loyd at time of admission 10/15/2023 35 minutes of critical care time spent in patient medically 10/15/2023
--- NOTE | 2023-10-15 17:53 | CT_ITS ---
PROCEDURE INFORMATION: Exam: CT Head Without Contrast Exam date and time: 10/15/2023 7:50 PM Age: 87 years old Clinical indication: Dizziness; Additional info: Loc 10/12 while spreading mulch. Please eval TECHNIQUE: Imaging protocol: Computed tomography of the head without contrast. Radiation optimization: All CT scans at this facility use at least one of these dose optimization techniques: automated exposure control; mA and/or kV adjustment per patient size (includes targeted exams where dose is matched to clinical indication); or iterative reconstruction. COMPARISON: No relevant prior studies available. FINDINGS: Brain: There is moderate diffuse cerebral volume loss present. Multiple subcortical and deep hypoattenuating white matter foci are present, likely related to small vessel senescent changes and can also be seen with prior infectious / inflammatory insult, or prior traumatic events. No hyperattenuating foci are identified to suggest acute intracranial hemorrhage. Cerebral ventricles: No ventriculomegaly. Paranasal sinuses: Visualized sinuses are unremarkable. No fluid levels. Mastoid air cells: Visualized mastoid air cells are well aerated. Bones: Unremarkable. No acute fracture. Soft tissues: Unremarkable. IMPRESSION: 1. Multiple subcortical and deep hypoattenuating white matter foci are present, likely related to small vessel senescent changes and can also be seen with prior infectious / inflammatory insult, or prior traumatic events. 2. No hyperattenuating foci are identified to suggest acute intracranial hemorrhage.
--- NOTE | 2023-10-15 17:56 | HMH.ITSTN ---
RN to call when pt is ready for CT scan
[2023-10-15 18:29] LABS: Hemoglobin A1C 5.7 % (4.0-6.0)
--- NOTE | 2023-10-15 20:11 | PC.NURSE ---
Spoke with Tanja, [employer] rep who states that due to echo being completed on patient and report on imaging is not back at this time, that there is a hold on [employer] approval. ARTHUR HOU, and Tanja states that she will speak with insurance, and cardiology to obtain records for approval.
[2023-10-15] MEDS: TAMSULOSIN 0.4MG CAPSULE 0.4 MG PO (20:18)
[2023-10-15] MEDS: ATORVASTATIN 40MG TABLET 80 MG PO (20:24)
--- NOTE | 2023-10-15 21:15 | PC.NURSE ---
TRN observed patient heart rate increased to 140/150's and sustained for approx 3-4 minutes. LAURENCE Upton notified and EKG obtained. STRAIGHTENING PRESS OPERATOR aware, and new orders placed, see MAR. Patient asymptomatic, and asleep at this time. VS remain stable at BP 130/86, spo2 93% on room air, RR 15. When patient arouses to voice, he denies pain, and does not have any complaints at this time.
--- NOTE | 2023-10-15 21:24 | ECG_ITS ---
APPROVED REPORT Exam: Resting ECG HR:124 bpm ECG Measurements Heart Rate 124 AXES QRSd 175 QRS 175 QT 384 T 32 QTc 457 Conclusion ATRIAL FLUTTER/TACHYCARDIA WITH RAPID VENTRICULAR RESPONSE RIGHT AXIS DEVIATION [QRS AXIS > 100] RIGHT BUNDLE BRANCH BLOCK [120+ ms QRS DURATION, UPRIGHT V1, 40+ ms S IN I/aVL/V4/V5/V6] POSSIBLE ANTERIOR MYOCARDIAL INFARCTION , PROBABLY OLD [30 ms Q WAVE IN V3/V4, OR R < 0.2 mV IN V4] ABNORMAL ECG UNCONFIRMED REPORT Electronically signed by : Merrill Mendoza MD 10/17/2023 07:58:26
[2023-10-15] MEDS: AMIODARONE HCL 150 MG in DEXTROSE 5 % IN WATER 100 ML 618 MG IV (22:11)
[2023-10-15] MEDS: AMIODARONE HCL 900 MG in DEXTROSE 5 % IN WATER 500 ML 34.53 MG IV (22:21)
[2023-10-16] VITALS (15 sets, daily range): BP systolic 93–145; BP diastolic 50–93; PULSE 50–120; RESP 12–22; TEMP 36.3–37.1; O2SAT 94–97; BMI 26.4
--- NOTE | 2023-10-16 01:30 | PC.NURSE ---
Report given to Angelica TATE
[2023-10-16] MEDS: LEVOTHYROXINE 125MCG (0.125MG) TAB 125 MCG PO (06:39)
[2023-10-16 07:42] LABS: Basophils % 0.3 % (0.1-2.0); Eosinophils # 0.1 K/mm3 (0.0-0.4); Eosinophils % 0.6 % (0.1-12.0); Hematocrit 50.8 % (42.0-52.0); Hemoglobin 16.3 g/dL (14.1-18.0); Lymphocytes # 1.8 K/mm3 (0.7-4.5); Lymphocytes % 18.3 % (10-50); Mean Corpuscular HGB Conc 32.1 g/dL (31.8-35.4); Mean Corpuscular Hemoglobin 32.2 pg (27.0-31.2); Mean Corpuscular Volume 100.4 fl (80-94); Mean Platelet Volume 8.1 fl (7.4-10.4); Monocytes # 0.9 K/mm3 (0.1-1.0); Monocytes % 9.5 % (1.7-9.3); Neutrophils % 71.3 % (37.0-80.0); Platelet Count 230 K/mm3 (142-424); Red Blood Count 5.06 M/mm3 (4.60-6.20); Red Cell Distribution Width 14.4 % (11.5-17.5); White Blood Count 9.7 K/mm3 (4.8-10.8)
[2023-10-16 07:52] LABS: Blood Urea Nitrogen 17 mg/dl (9-20); Calcium 8.9 mg/dl (8.4-10.2); Carbon Dioxide 24 mmol/L (22.0-30.0); Chloride 108 mmol/L (98-107); Creatinine Clearance Estimated 46 mL/min (50-200); Estimated Glomerular Filt Rate 52 ml/min (>60); GFR (African American) 63 ML/MIN (>60); Glucose 111 mg/dl (74-100); Magnesium 2.1 mg/dl (1.6-2.3); Sodium 136 mmol/L (136-145)
[2023-10-16] MEDS: AMIODARONE 200MG TABLET 200 MG PO (08:02)
[2023-10-16] MEDS: APIXABAN 5MG TABLET 5 MG PO ×2 (08:02→20:45)
[2023-10-16] MEDS: ASPIRIN EC 81MG TABLET 81 MG PO (08:02)
[2023-10-16] MEDS: CLOPIDOGREL 75MG TAB 75 MG PO (08:02)
[2023-10-16] MEDS: METOPROLOL TARTRATE 50MG TABLET 50 MG PO (08:02)
[2023-10-16] MEDS: DAPAGLIFLOZIN PROPANEDIOL 10 MG TABLET PO (08:03)
[2023-10-16] MEDS: SACUBITRIL/VALSARTAN 24-26MG TABLET 1 EACH PO ×2 (08:03→20:45)
--- NOTE | 2023-10-16 12:34 | EXP.PN ---
Subjective *Date: 10/16/23 *Time: 14:40 Interval history: The patient is seen and examined today. The patient is accompanied by his and daughter. I am accompanied by his nurse Shila. He reports that he is feeling much better and is inquiring about discharge home. Nursing staff report that he remains afebrile with improved heart rates and saturating appropriately on room air. His blood pressures are stable. They report IV amiodarone started through the night. I received a call from [facility] airport representative to update the patient's diagnoses to assist with [facility] recommendations. Exam Data for Last 24 hours Vital signs and Labs for Last 24 Hours: Temp Pulse Resp BP Pulse Ox O2 Del Method 98.3 F 86 20 123/71 94 L Room Air 10/16/23 08:00 10/16/23 10:00 10/16/23 10:00 10/16/23 10:00 10/16/23 10:00 10/16/23 11:05 Laboratory Results - last 24 hr 10/15/23 05:47: Hemoglobin A1c 5.7 10/15/23 13:47: Activated Clotting Time > 400 H* 10/16/23 06:00: WBC 9.7, RBC 5.06, Hgb 16.3, Hct 50.8, MCV 100.4 H, MCH 32.2 H, MCHC 32.1, RDW 14.4, Plt Count 230, MPV 8.1, Neut % (Auto) 71.3, Lymph % (Auto) 18.3, [place] % (Auto) 9.5 H, Eos % (Auto) 0.6, Baso % (Auto) 0.3, Neut # (Auto) 7.0, Lymph # (Auto) 1.8, [place] # (Auto) 0.9, Eos # (Auto) 0.1, Baso # (Auto) 0.0, Sodium 136, Potassium 4.0, Chloride 108 H, Carbon Dioxide 24, Anion Gap 8.0, BUN 17, Creatinine 1.30 H, Estimated Creat Clear 46, Estimated GFR 52 L, Est GFR ( Amer) 63, Glucose 111 H, Calcium 8.9, Magnesium 2.1 I & O for Last 24 hours: Intake & Output 10/13/23 10/14/23 10/15/23 10/16/23 23:59 23:59 23:59 23:59 Intake Total 1241.18 / 2561.18 2340.629 / 2622.629 761.482 / 761.482 Output Total 200 / 1050 2825 / 2825 550 / 550 Balance 1041.18 / 1511.18 -484.371 / -202.371 211.482 / 211.482 Weight 89.267 kg 89.3 kg 79.197 kg Constitutional Constitutional: no acute distress and cooperative *Routine HEENT Exam Eye: Present PERRL *Routine Respiratory Exam Respiratory: Present CTA bilaterally; Absent accessory muscle use, wheezes or crackles *Routine Cardiovascular Exam Cardiovascular: Present RRR, Normal S1 and Normal S2; Absent murmur, gallop or rubs *Routine Abdominal Exam Abdominal: Present soft; Absent tenderness *Routine Extremities Exam Extremities: Present pulses intact; Absent cyanosis or edema *Routine Skin Exam Skin: Present intact; Absent erythema or wounds *Routine Neurological Exam Neurological: Present alert and oriented X3 Routine Psychiatric Exam Psychiatric: Present cooperative Assessment and Plan *Assessment and plan (1) Ischemic cardiomyopathy: Status: Acute Category: Medical Code(s): I25.5 - Ischemic cardiomyopathy (2) CAD (coronary artery disease), [place] coronary artery: Status: Chronic Category: Medical Code(s): I25.10 - Atherosclerotic heart disease of [place] coronary artery without angina pectoris (3) Acute HFrEF (heart failure with reduced ejection fraction): Status: Acute Category: Medical Code(s): I50.21 - Acute systolic (congestive) heart failure (4) Atrial fibrillation/flutter: Status: Acute Category: Medical Code(s): I48.91 - Unspecified atrial fibrillation; I48.92 - Unspecified atrial flutter (5) CKD stage 3a, GFR 45-59 ml/min: Status: Acute Category: Medical Code(s): N18.31 - Chronic kidney disease, stage 3a (6) Hypothyroidism: Status: Chronic Category: Medical Code(s): E03.9 - Hypothyroidism, unspecified Plan 87-year-old male with past history of coronary artery disease and previous stent deployment presents with syncope. Problems addressed as follows: Ischemic cardiomyopathy Acute HFrEF (stage C/NYHA III) Coronary artery disease Status post [facility] with LAD stent deployment (10/15/2023) Telemetry monitoring Cardiology consult reviewed Trending electrolytes, magnesium, creatinine Accurate I's and O's Sodium and fluid restriction Routine weights Antiplatelet therapy with aspirin 81 mg daily P2Y12 inhibitor therapy High-dose statin therapy with Lipitor 80 mg daily loop diuretic therapy Beta-sheryl therapy SGLT2 inhibitor therapy ARNI therapy Aldosterone antagonist therapy [facility]est on discharge Atrial fibrillation/flutter Telemetry monitoring Cardiology consult [id number] Anticoagulation with Eliquis 5 mg twice daily Beta-sheryl therapy Transitioning IV amiodarone therapy to p.o. Drug therapy requiring intensive monitoring for toxicity Chronic kidney disease stage IIIa Baseline creatinine 1.2 Trending electrolytes and creatinine Caution with IV fluids Avoiding NSAIDs Hypothyroidism Levothyroxine replacement therapy The patient is hospitalized day 2 with above diagnoses complicated by his advanced age. We appreciate direct response consultant evaluation, procedural intervention and ongoing postprocedural care recommendations. Case management is assisting with discharge planning and discharge equipment needs. Barriers to discharge currently include rhythm stability, transitioning IV to p.o. therapy and discharge equipment needs. Expected day of discharge October 17, 2023 if rhythm remains stable.
[2023-10-16] MEDS: POLYETHYLENE GLYCOL 3350 17 GM PACKET PO (15:11)
[2023-10-16] MEDS: SENNA 8.6MG TABLET 17.2 MG PO (15:11)
--- NOTE | 2023-10-16 17:15 | PC.NURSE ---
Amiodarone drip on standby per Dr. Brink. Patient heart rate between 50's and low 100's. Rhythym NSB and afib, non symptomatic. VS stable and patient remained on room air. No pain reported.
[2023-10-16] MEDS: AMIODARONE 200MG TABLET 400 MG PO (20:45)
[2023-10-16] MEDS: TAMSULOSIN 0.4MG CAPSULE 0.4 MG PO (20:45)
[2023-10-16] MEDS: ATORVASTATIN 40MG TABLET 80 MG PO (20:45)
[2023-10-17] VITALS: BP 89/50; PULSE 120; RESP 16; TEMP 36.3; O2SAT 96
[2023-10-17 04:00] VITALS: BP 86/65; PULSE 125; PULSE 126; PULSE 130; RESP 15; RESP 17; TEMP 36.5; O2SAT 97; O2SAT 98
[2023-10-17] MEDS: LEVOTHYROXINE 125MCG (0.125MG) TAB 125 MCG PO (06:58)
[2023-10-17 07:55] LABS: Basophils % 0.4 % (0.1-2.0); Eosinophils # 0.1 K/mm3 (0.0-0.4); Eosinophils % 0.8 % (0.1-12.0); Hematocrit 53.5 % (42.0-52.0); Lymphocytes # 1.8 K/mm3 (0.7-4.5); Mean Corpuscular HGB Conc 31.9 g/dL (31.8-35.4); Mean Corpuscular Hemoglobin 31.9 pg (27.0-31.2); Mean Corpuscular Volume 100.3 fl (80-94); Mean Platelet Volume 8.3 fl (7.4-10.4); Monocytes # 0.9 K/mm3 (0.1-1.0); Monocytes % 9.6 % (1.7-9.3); Neutrophils # 6.4 K/mm3 (1.8-7.8); Neutrophils % 69.2 % (37.0-80.0); Platelet Count 257 K/mm3 (142-424); Red Blood Count 5.33 M/mm3 (4.60-6.20); Red Cell Distribution Width 14.6 % (11.5-17.5); White Blood Count 9.2 K/mm3 (4.8-10.8)
[2023-10-17 08:00] VITALS: BP 116/65; PULSE 110; PULSE 97; RESP 20; TEMP 37.2; O2SAT 96
[2023-10-17 08:02] LABS: Anion Gap 9.3 mEq/L (5-15); Blood Urea Nitrogen 20 mg/dl (9-20); Calcium 8.7 mg/dl (8.4-10.2); Carbon Dioxide 24 mmol/L (22.0-30.0); Chloride 109 mmol/L (98-107); Creatinine Clearance Estimated 48 mL/min (50-200); Estimated Glomerular Filt Rate 48 ml/min (>60); GFR (African American) 58 ML/MIN (>60); Glucose 118 mg/dl (74-100); Magnesium 2.2 mg/dl (1.6-2.3); Potassium 4.3 mmoL/L (3.5-5.1); Sodium 138 mmol/L (136-145)
[2023-10-17] MEDS: AMIODARONE 200MG TABLET 400 MG PO ×2 (08:10→20:45)
[2023-10-17] MEDS: SENNA 8.6MG TABLET 17.2 MG PO (08:10)
[2023-10-17] MEDS: SACUBITRIL/VALSARTAN 24-26MG TABLET 1 EACH PO ×2 (08:10→20:45)
[2023-10-17] MEDS: SPIRONOLACTONE 25MG TABLET 12.5 MG PO (08:10)
[2023-10-17] MEDS: BUMETANIDE 1 MG TABLET 0.5 MG PO (08:10)
[2023-10-17] MEDS: DAPAGLIFLOZIN PROPANEDIOL 10 MG TABLET PO (08:11)
[2023-10-17] MEDS: BISOPROLOL 5MG TABLET 5 MG PO (08:11)
[2023-10-17] MEDS: CLOPIDOGREL 75MG TAB 75 MG PO (08:11)
[2023-10-17] MEDS: APIXABAN 5MG TABLET 5 MG PO ×2 (08:11→20:45)
[2023-10-17] MEDS: ASPIRIN EC 81MG TABLET 81 MG PO (08:11)
[2023-10-17] MEDS: POLYETHYLENE GLYCOL 3350 17 GM PACKET PO (11:52)
[2023-10-17 12:00] VITALS: BP 113/72; PULSE 67; PULSE 90; RESP 20; TEMP 36.7; O2SAT 94
--- NOTE | 2023-10-17 15:41 | P.PN_ITS ---
Subjective *Date: 10/17/23 *Time: 15:41 Interval history: The patient is seen and examined at bedside. He is accompanied by his and daughter. I am accompanied by Shila his nurse. Nursing staff report stable respiratory rates, blood pressures and saturating appropriately on room air. They report episodes of RVR this morning up to 140s. He is tolerating his oral amiodarone and denies associated chest pain, dyspnea or confusion. His morning labs have been reviewed and discussed including a normal white blood cell count 9.2, stable hemoglobin is 17 and normal platelets 257. His electrolytes are normal, BUN 20 and creatinine 1.4 with baseline 1.2. [facility] with rhythm stability. Exam Data for Last 24 hours Vital signs and Labs for Last 24 Hours: Temp Pulse Resp BP Pulse Ox O2 Del Method 98.0 F 67 20 113/72 94 L Room Air 10/17/23 12:00 10/17/23 12:00 10/17/23 12:00 10/17/23 12:00 10/17/23 12:00 10/17/23 13:05 Laboratory Results - last 24 hr 10/17/23 07:15: WBC 9.2, RBC 5.33, Hgb 17.0, Hct 53.5 H, MCV 100.3 H, MCH 31.9 H , MCHC 31.9, RDW 14.6, Plt Count 257, MPV 8.3, Neut % (Auto) 69.2, Lymph % (Auto) 20.0, [place] % (Auto) 9.6 H, Eos % (Auto) 0.8, Baso % (Auto) 0.4, Neut # (Auto) 6.4, Lymph # (Auto) 1.8, [place] # (Auto) 0.9, Eos # (Auto) 0.1, Baso # (Auto) 0.0, Sodium 138, Potassium 4.3, Chloride 109 H, Carbon Dioxide 24, Anion Gap 9.3, BUN 20, Creatinine 1.40 H, Estimated Creat Clear 48, Estimated GFR 48 L , Est GFR ( Amer) 58 L, Glucose 118 H, Calcium 8.7, Magnesium 2.2 I & O for Last 24 hours: Intake & Output 09/05/24 09/06/24 09/07/24 09/08/24 23:59 23:59 23:59 23:59 Intake Total 1241.18 / 2561.18 2340.629 / 2622.629 1481.482 / 6998.484 7093 / 1080 Output Total 200 / 1050 2825 / 2825 1175 / 1575 1250 / 1250 Balance 1041.18 / 1511.18 -484.371 / -202.371 306.482 / 146.482 -170 / -170 Weight 89.267 kg 89.3 kg 79.197 kg 89.896 kg Constitutional Constitutional: no acute distress and cooperative *Routine HEENT Exam Eye: Present PERRL *Routine Respiratory Exam Respiratory: Present CTA bilaterally; Absent accessory muscle use, wheezes or crackles *Routine Cardiovascular Exam Cardiovascular: Present tachycardia and irregular rhythm; Absent murmur *Routine Abdominal Exam Abdominal: Present soft; Absent tenderness *Routine Extremities Exam Extremities: Present pulses intact; Absent cyanosis or edema *Routine Skin Exam Skin: Present intact; Absent erythema or wounds *Routine Neurological Exam Neurological: Present alert and oriented X3 Routine Psychiatric Exam Psychiatric: Present cooperative Assessment and Plan *Assessment and plan (1) Ischemic cardiomyopathy: Status: Acute Category: Medical Code(s): I25.5 - Ischemic cardiomyopathy (2) CAD (coronary artery disease), [place] coronary artery: Status: Chronic Category: Medical Code(s): I25.10 - Atherosclerotic heart disease of [place] coronary artery without angina pectoris (3) Acute HFrEF (heart failure with reduced ejection fraction): Status: Acute Category: Medical Code(s): I50.21 - Acute systolic (congestive) heart failure (4) Atrial fibrillation/flutter: Status: Acute Category: Medical Code(s): I48.91 - Unspecified atrial fibrillation; I48.92 - Unspecified atrial flutter (5) CKD stage 3a, GFR 45-59 ml/min: Status: Acute Category: Medical Code(s): N18.31 - Chronic kidney disease, stage 3a (6) Hypothyroidism: Status: Chronic Category: Medical Code(s): E03.9 - Hypothyroidism, unspecified Plan 87-year-old male with past history of coronary artery disease and previous stent deployment presents with syncope. Problems addressed as follows: NSTEMI Myocardial infarction with EF <25% Acute HFrEF (stage C/NYHA III) Coronary artery disease Status post [facility] with LAD stent deployment (10/15/2023) Telemetry monitoring Cardiology consult reviewed Trending electrolytes, magnesium, creatinine Accurate I's and O's Sodium and fluid restriction Routine weights Antiplatelet therapy with aspirin 81 mg daily P2Y12 inhibitor therapy High-dose statin therapy with Lipitor 80 mg daily loop diuretic therapy Beta-sheryl therapy SGLT2 inhibitor therapy ARNI therapy Aldosterone antagonist therapy LifeVest on discharge Atrial fibrillation/flutter Telemetry monitoring Cardiology consult [id number] Anticoagulation with Eliquis 5 mg twice daily Beta-sheryl therapy Transitioning IV amiodarone therapy to p.o. Drug therapy requiring intensive monitoring for toxicity Chronic kidney disease stage IIIa Baseline creatinine 1.2 Trending electrolytes and creatinine Caution with IV fluids Avoiding NSAIDs Hypothyroidism Levothyroxine replacement therapy The patient is hospitalized day 3 with above diagnoses complicated by his advanced age. We appreciate art sales consultant evaluation, procedural intervention and ongoing postprocedural care recommendations. He will be on triple anticoagulation therapy (ASA, Plavix, Eliquis)) for 30 days and de-escalate to P2Y12 and factor Xa inhibitor therapy with routine cardiology evaluations. We have discussed the risk of falls and injury for his age group. We have discussed seeking immediate health care evaluation with any falls. Case management is assisting with discharge planning and discharge equipment needs. Barriers to discharge currently include rhythm stability, transitioning IV to p.o. therapy and discharge equipment needs. Expected day of discharge October 18, 2023 with follow-up cardiology evaluation and if rhythm remains stable.
[2023-10-17 16:00] VITALS: BP 115/74; PULSE 58; PULSE 60; RESP 20; TEMP 36.4; O2SAT 95
--- NOTE | 2023-10-17 18:16 | PC.NURSE ---
VS stable. Heart rate betwen 60-80's for most of shift. Lung sounds clear. Patient able to sit in chair for lunch. No bowl movement noted during shift but sennakot and miralax given. Bowel sounds active in all 4 quadrants. Right radial site clean dry and intact.
[2023-10-17 20:00] VITALS: BP 120/67; PULSE 60; RESP 16; TEMP 36.7; O2SAT 96
[2023-10-17] MEDS: TAMSULOSIN 0.4MG CAPSULE 0.4 MG PO (20:45)
[2023-10-17] MEDS: ATORVASTATIN 40MG TABLET 80 MG PO (20:45)
[2023-10-18] VITALS (7 sets, daily range): BP systolic 86–119; BP diastolic 50–73; PULSE 50–72; RESP 14–18; TEMP 36.5–36.6; O2SAT 94–96; BMI 29.0
[2023-10-18] MEDS: LEVOTHYROXINE 125MCG (0.125MG) TAB 125 MCG PO (06:18)
[2023-10-18 06:53] LABS: Basophils # 0.1 K/mm3 (0-0.2); Basophils % 0.6 % (0.1-2.0); Eosinophils # 0.2 K/mm3 (0.0-0.4); Eosinophils % 1.7 % (0.1-12.0); Hematocrit 51.6 % (42.0-52.0); Lymphocytes # 1.9 K/mm3 (0.7-4.5); Lymphocytes % 20.1 % (10-50); Mean Corpuscular HGB Conc 31.1 g/dL (31.8-35.4); Mean Corpuscular Hemoglobin 31.7 pg (27.0-31.2); Mean Corpuscular Volume 101.8 fl (80-94); Mean Platelet Volume 8.4 fl (7.4-10.4); Monocytes # 0.9 K/mm3 (0.1-1.0); Monocytes % 9.8 % (1.7-9.3); Neutrophils # 6.3 K/mm3 (1.8-7.8); Neutrophils % 67.8 % (37.0-80.0); Platelet Count 230 K/mm3 (142-424); Red Blood Count 5.07 M/mm3 (4.60-6.20); Red Cell Distribution Width 14.5 % (11.5-17.5); White Blood Count 9.2 K/mm3 (4.8-10.8)
[2023-10-18 06:55] LABS: Chloride 107 mmol/L (98-107); Sodium 136 mmol/L (136-145)
[2023-10-18 06:56] LABS: Potassium 4.2 mmoL/L (3.5-5.1)
[2023-10-18 06:58] LABS: Blood Urea Nitrogen 33 mg/dl (9-20); Creatinine Clearance Estimated 38 mL/min (50-200); Estimated Glomerular Filt Rate 38 ml/min (>60); GFR (African American) 46 ML/MIN (>60)
[2023-10-18 06:59] LABS: Anion Gap 9.2 mEq/L (5-15); Calcium 8.5 mg/dl (8.4-10.2); Carbon Dioxide 24 mmol/L (22.0-30.0); Glucose 91 mg/dl (74-100); Magnesium 2.2 mg/dl (1.6-2.3)
[2023-10-18] MEDS: CLOPIDOGREL 75MG TAB 75 MG PO (08:28)
[2023-10-18] MEDS: ASPIRIN EC 81MG TABLET 81 MG PO (08:28)
[2023-10-18] MEDS: DAPAGLIFLOZIN PROPANEDIOL 10 MG TABLET PO (08:28)
[2023-10-18] MEDS: SACUBITRIL/VALSARTAN 24-26MG TABLET 1 EACH PO (08:28)
[2023-10-18] MEDS: APIXABAN 5MG TABLET 5 MG PO (08:28)
[2023-10-18] MEDS: AMIODARONE 200MG TABLET 400 MG PO (08:28)
[2023-10-18] MEDS: BISOPROLOL 5MG TABLET 5 MG PO (08:28)
[2023-10-18] MEDS: SPIRONOLACTONE 25MG TABLET 12.5 MG PO (08:29)
[2023-10-18] MEDS: SENNA 8.6MG TABLET 17.2 MG PO (08:29)
[2023-10-18] MEDS: BUMETANIDE 1 MG TABLET 0.5 MG PO (08:30)
--- NOTE | 2023-10-18 10:13 | EXP.CARD.PN ---
Subjective Subjective Date: 10/18/23 Time: 10:13 Principal diagnosis: A flutter with RVR, syncope, cardiomyopathy, CAD Interval history: 87-year-old white male in bed in no acute distress. Denies any chest pain, pressure or tightness. Overall states he is feeling better. Exam Data for Last 24 hours Vital signs and Labs for Last 24 Hours: Temp Pulse Resp BP Pulse Ox O2 Del Method 97.7 F 72 18 102/73 L 95 Room Air 10/18/23 07:10/18/23 08:10/18/23 07:10/18/23 07:10/18/23 08:20 10/18/23 09:33 Laboratory Results - last 24 hr 10/18/23 05:35: WBC 9.2, RBC 5.07, Hgb 16.0, Hct 51.6, MCV 101.8 H, MCH 31.7 H, MCHC 31.1 L, RDW 14.5, Plt Count 230, MPV 8.4, Neut % (Auto) 67.8, Lymph % (Auto) 20.1, [place] % (Auto) 9.8 H, Eos % (Auto) 1.7, Baso % (Auto) 0.6, Neut # (Auto) 6.3, Lymph # (Auto) 1.9, [place] # (Auto) 0.9, Eos # (Auto) 0.2, Baso # (Auto) 0.1, Sodium 136, Potassium 4.2, Chloride 107, Carbon Dioxide 24, Anion Gap 9.2, BUN 33 H D, Creatinine 1.70 H D, Estimated Creat Clear 38, Estimated GFR 38 L, Est GFR ( Amer) 46 L D, Glucose 91 D, Calcium 8.5, Magnesium 2.2 I & O for Last 24 hours: Intake & Output 10/15/23 10/16/23 10/17/23 10/18/23 11:59 11:59 11:59 11:59 Intake Total 3221.809 / 3221.809 1121.482 / 9523.827 9771 / 1440 1400 / 1400 Output Total 1300 / 1300 2275 / 2275 1600 / 1600 1050 / 1050 Balance 1921.809 / 1921.809 -1153.518 / -1153.518 -160 / -160 350 / 350 Weight 196 lb 13.965 oz 174 lb 9.6 oz 198 lb 3 oz 191 lb 12.8 oz Constitutional Constitutional: no acute distress *Routine Respiratory Exam Respiratory: Present CTA bilaterally *Routine Cardiovascular Exam Cardiovascular: Present RRR *Routine Extremities Exam Extremities: Absent edema *Routine Neurological Exam Neurological: Present alert and oriented X3 Progress Note: A&P Assessment and plan (1) Ischemic cardiomyopathy: Status: Acute (2) CAD (coronary artery disease), [place] coronary artery: Status: Chronic (3) Acute HFrEF (heart failure with reduced ejection fraction): Status: Acute (4) Atrial fibrillation/flutter: Status: Acute (5) CKD stage 3a, GFR 45-59 ml/min: Status: Acute (6) Hypothyroidism: Status: Chronic (7) Syncope and collapse: Status: Acute (8) History of coronary artery stent placement: Status: Chronic (9) HFrEF (heart failure with reduced ejection fraction): Status: Acute Assessment and Plan Assessment and Plan for All Diagnoses:: A-flutter with RVR - known dx since 2019 but untreated - likely exacerbated by dehydration and hypotension - spontaneous conversion with hydration and rate control - CHADS-VASC = 4, Eliquis started - continue hydration efforts and BB - pt still having episodes of a-flutter, will continue Amiodarone 400 mg BID Syncope - likely secondary to A flutter, possible SSS/pause - continue hospital monitor - ECHO shows EF 25% CAD, s/p prior coronary stenting - CCS = 0 -On Plavix, ASA in addition to Eliquis. Will stop aspirin in 30 days. - Cont BB and Statin - ECHO shows EF 25% -[facility], 10/15/2023--ROMAN to LAD, Mild RCA and Circ disease. Dehydration/JOAN - Cr up from 1.0 to 1.5 out working in the sun - hydrate, trend labs HFrEF, ischemic - new dx this admission with EF 25% - likely ischemic etiology - on bisoprolol, Entresto, Farxiga, spironolactone and Bumex - avoid salt - monitor for vol overload - pt agreeable to LifeVest Hyperlipidemia -LDL goal less than 55, last LDL was in 2020. Will check today. -Continue statin therapy Stable from a cardiac standpoint for discharge home. LifeVest to be fitted later today Home medication recommendations: Aspirin 81 mg daily Plavix 75 mg daily Eliquis 2.5 mg twice daily due to CKD Bisoprolol 5 mg daily (in place of metoprolol hopefully for better heart rate control) Entresto 24/26 mg twice daily Farxiga 10 mg daily Lipitor 80 mg daily Amiodarone 400 mg twice daily until seen in our office Bumex 1 mg 1/2 tablet daily Spironolactone 25 mg 1/2 tablet daily Stop amlodipine and metoprolol Follow-up in our office in 7 to 10 days. Anticipate repeating echocardiogram in 1 month to see if the patient still needs to wear the LifeVest for the full 3 months.
--- NOTE | 2023-10-18 11:21 | PC.NURSE ---
TECH NOTE; PATIENT AMBULATED LENGTH OF HALLWAY MORE THAN 5 TIMES INDEPENDENTLY, ACTIVITY TOLERATED WELL Rubi TIWARI, SRNA
[2023-10-18 11:25] LABS: Cholesterol 137 mg/dl (140-200); HDL Cholesterol 34 mg/dl (40-60); Triglycerides 162 mg/dl (30-150); VLDL Cholesterol 32 mg/dL (0-40)
[2023-10-18 11:36] LABS: Direct LDL Cholesterol 68.96 mg/dL (100-129)
--- NOTE | 2023-10-18 16:16 | P.DS_ITS ---
General Admission date:: 10/14/23 Discharge date: 10/18/23 HPI HPI HPI: Really nice patient with past medical history of CAD with stent, hypertension, hyperlipidemia, hypothyroidism, BPH. Patient was performing yard work around 5 PM 11/01 when he noted LOC. Patient states while spreading mulch yesterday he noticed lightheadedness, then passed out denies chest discomfort, palpitations, sweating during episode. Patient brought for evaluation by his daughter/ to hospital today. Patient noted to have heart rate in 150s with low blood pressure in emergency room. EKG showed 3-1 atrial flutter. Denies history of atrial flutter/fibrillation. Not on DOAC or warfarin at this time. Denies fevers, chills, known sick contacts, abdominal pain, diarrhea, chest pain. States he suffers from chronic constipation. Systolic ejection murmur noted during evaluation emergency room. CTA chest ordered in emergency room with results pending at time of hospitalization. Patient also presents with BUN/creatinine 30/1.5. Hospital Course Hospital Course Hospital Course: The patient was admitted to the telemetry unit with cardiology consultation. Imaging, labs and inflammatory markers were assessed and trended. He underwent left heart cath with LAD stent deployment 10/15/2023. Problems addressed as follows: NSTEMI Myocardial infarction with EF <25% Acute HFrEF (stage C/NYHA III) Coronary artery disease Status post [facility] with LAD stent deployment (10/15/2023) Telemetry monitoring Cardiology consult reviewed Trending electrolytes, magnesium, creatinine Accurate I's and O's Sodium and fluid restriction Routine weights and record Antiplatelet therapy with aspirin 81 mg daily P2Y12 inhibitor therapy High-dose statin therapy with Lipitor 80 mg daily loop diuretic therapy Beta-sheryl therapy SGLT2 inhibitor therapy ARNI therapy Aldosterone antagonist therapy LifeVest on discharge Atrial fibrillation/flutter Telemetry monitoring Cardiology consult [id number] Anticoagulation with Eliquis 5 mg twice daily Beta-sheryl therapy Transitioning IV amiodarone therapy to p.o. Adjusting amiodarone dosing with cardiology follow-up Chronic kidney disease stage IIIa Baseline creatinine 1.2 Trending electrolytes and creatinine Caution with IV fluids Avoiding NSAIDs Hypothyroidism Levothyroxine replacement therapy The patient was hospitalized for 8 days with above diagnoses. His rhythm rate remained stable on oral medication. The patient identified improvement and ambulated independently in the hallways. He requested to be discharged home. Cardiology made recommendations for discharge with Evelia GARCÍA. Case management assisted with discharge needs. He understands the importance of following up with his PCP in 1 week and wharf helper as scheduled for November 01. He will be on triple anticoagulation therapy with aspirin, Plavix and Eliquis for 30 days and de-escalation of his therapy to Plavix and Eliquis subsequently. He understands the importance of routine home blood pressure monitoring and daily weights with recording recording for physician follow-up appointments. Fall risk education is provided and he understands to seek immediate medical attention with any falls. We have recommended follow-up renal function evaluation with his PCP in 1 week. I spent 35 minutes in [id number] time with the patient, case management and nursing staff concerning the discharge process. We discussed the admitting diagnoses and hospital course. We discussed identified improvement and the patient's desire to be discharged. We reviewed inpatient studies and imaging. The patient voiced understanding on the importance of follow-up with his primary care provider and wharf helper. The patient plans to be compliant with the medication regimen prescribed and follow-up appointments. He understands that he can return to the emergency department with any sudden changes or concerns. Exam Data for Last 24 hours Vital signs and Labs for Last 24 Hours: Temp Pulse Resp BP Pulse Ox O2 Del Method 97.7 F 70 18 102/73 L 95 Room Air 10/18/23 07:29 10/18/23 12:00 10/18/23 07:29 10/18/23 07:29 10/18/23 08:20 10/18/23 13:50 Laboratory Results - last 24 hr 10/18/23 05:35: WBC 9.2, RBC 5.07, Hgb 16.0, Hct 51.6, MCV 101.8 H, MCH 31.7 H, MCHC 31.1 L, RDW 14.5, Plt Count 230, MPV 8.4, Neut % (Auto) 67.8, Lymph % (Auto) 20.1, [place] % (Auto) 9.8 H, Eos % (Auto) 1.7, Baso % (Auto) 0.6, Neut # (Auto) 6.3, Lymph # (Auto) 1.9, [place] # (Auto) 0.9, Eos # (Auto) 0.2, Baso # (Auto) 0.1, Sodium 136, Potassium 4.2, Chloride 107, Carbon Dioxide 24, Anion Gap 9.2, BUN 33 H D, Creatinine 1.70 H D, Estimated Creat Clear 38, Estimated GFR 38 L, Est GFR ( Amer) 46 L D, Glucose 91 D, Calcium 8.5, Magnesium 2.2, Triglycerides 162 H, Cholesterol 137 L, LDL Cholesterol Direct 68.96 L, VLDL Cholesterol 32, HDL Cholesterol 34 L, Cholesterol/HDL Ratio 4.0 H I & O for Last 24 hours: Intake & Output 10/15/23 10/16/23 10/17/23 10/18/23 23:59 23:59 23:59 23:59 Intake Total 2340.629 / 2622.629 1481.482 / 4697.014 2776 / 1660 940 / 940 Output Total 2825 / 2825 1175 / 1575 1450 / 1575 575 / 575 Balance -484.371 / -202.371 306.482 / 146.482 -30 / 85 365 / 365 Weight 89.3 kg 79.197 kg 89.896 kg 86.999 kg Constitutional Constitutional: no acute distress and cooperative *Routine HEENT Exam Eye: Present PERRL *Routine Respiratory Exam Respiratory: Present CTA bilaterally; Absent accessory muscle use, wheezes or crackles *Routine Cardiovascular Exam Cardiovascular: Present irregular rhythm; Absent murmur *Routine Abdominal Exam Abdominal: Present soft; Absent tenderness *Routine Extremities Exam Extremities: Present pulses intact; Absent cyanosis or edema *Routine Skin Exam Skin: Present intact; Absent erythema or wounds *Routine Neurological Exam Neurological: Present alert and oriented X3 Routine Psychiatric Exam Psychiatric: Present cooperative Results Data Completed and Pending Labs on day of discharge: Labs from last 24 hours 10/18/23 05:35 WBC 9.2 RBC 5.07 Hgb 16.0 Hct 51.6 MCV 101.8 H MCH 31.7 H MCHC 31.1 L RDW 14.5 Plt Count 230 MPV 8.4 Neut % (Auto) 67.8 Lymph % (Auto) 20.1 [place] % (Auto) 9.8 H Eos % (Auto) 1.7 Baso % (Auto) 0.6 Neut # (Auto) 6.3 Lymph # (Auto) 1.9 [place] # (Auto) 0.9 Eos # (Auto) 0.2 Baso # (Auto) 0.1 Sodium 136 Potassium 4.2 Chloride 107 Carbon Dioxide 24 Anion Gap 9.2 BUN 33 H D Creatinine 1.70 H D Estimated Creat Clear 38 Estimated GFR 38 L Est GFR ( Amer) 46 L D Glucose 91 D Calcium 8.5 Magnesium 2.2 Triglycerides 162 H Cholesterol 137 L LDL Cholesterol Direct 68.96 L VLDL Cholesterol 32 HDL Cholesterol 34 L Cholesterol/HDL Ratio 4.0 H DS: Diagnosis Discharge Diagnosis (1) Ischemic cardiomyopathy: Status: Acute Code(s): I25.5 - Ischemic cardiomyopathy (2) CAD (coronary artery disease), [place] coronary artery: Status: Chronic Code(s): I25.10 - Atherosclerotic heart disease of [place] coronary artery without angina pectoris (3) Acute HFrEF (heart failure with reduced ejection fraction): Status: Acute Code(s): I50.21 - Acute systolic (congestive) heart failure (4) Atrial fibrillation/flutter: Status: Acute Code(s): I48.91 - Unspecified atrial fibrillation; I48.92 - Unspecified atrial flutter (5) CKD stage 3a, GFR 45-59 ml/min: Status: Acute Code(s): N18.31 - Chronic kidney disease, stage 3a (6) Hypothyroidism: Status: Chronic Code(s): E03.9 - Hypothyroidism, unspecified (7) Syncope and collapse: Status: Acute Code(s): R55 - Syncope and collapse (8) History of coronary artery stent placement: Status: Chronic Code(s): Z95.5 - Presence of coronary angioplasty implant and graft (9) HFrEF (heart failure with reduced ejection fraction): Status: Acute Code(s): I50.20 - Unspecified systolic (congestive) heart failure Meds Home Medications and Allergies Home Medications ?Medication ?Instructions ?Recorded ?Confirmed ?Type aspirin 81 mg tablet,delayed 81 mg PO DAILY 09/01/18 10/14/23 History release tamsulosin 0.4 mg capsule 0.4 mg PO HS 09/01/18 10/14/23 History levothyroxine 125 mcg tablet 125 mcg PO DAILY 10/14/23 10/14/23 History amiodarone 200 mg tablet 400 mg (2 x 200 mg) PO BID #84 tabs 10/18/23 Rx apixaban 5 mg tablet (Eliquis) 2.5 mg (1/2 x 5 mg) PO BID #30 tabs 10/18/23 Rx atorvastatin 40 mg tablet 80 mg (2 x 40 mg) PO HS #60 tabs 10/18/23 Rx bisoprolol fumarate 5 mg tablet 5 mg PO DAILY #30 tabs 10/18/23 Rx bumetanide 1 mg tablet 0.5 mg (1/2 x 1 mg) PO DAILY #30 10/18/23 Rx tabs clopidogrel 75 mg tablet 75 mg PO DAILY #30 tabs 10/18/23 Rx dapagliflozin propanediol 10 mg 10 mg PO DAILY #30 tabs 10/18/23 Rx tablet (Farxiga) sacubitril 24 mg-valsartan 26 mg 1 tab PO BID #30 tabs 10/18/23 Rx tablet (Entresto) spironolactone 25 mg tablet 12.5 mg (1/2 x 25 mg) PO DAILY #30 10/18/23 Rx tabs New Prescriptions to Start Prescriptions: amiodarone [place],Declan apixaban [Eliquis] Emeric,Declan atorvastatin Emeric,Declan bisoprolol fumarate Emeric,Declan bumetanide Emeric,Declan clopidogrel Emeric,Declan dapagliflozin propanediol [Farxiga] Emeric,Declan sacubitril-valsartan [Entresto] Emeric,Declan spironolactone Emeric,Declan Allergies Allergy/AdvReac Type Severity Reaction Status Date / Time No Known Allergies Allergy Verified 10/14/23 08:29 Discharge Plan Disposition Patient Disposition: Home, Self-Care Condition: Fair Discharge Order Discharge Orders: Discharge Order (Routine); Ordered 10/18/23 Ordered By: Declan Brink Follow up Plan Follow up with: Florentin Montez PA [Physician Sack Department Supervisor] - 11/02/23 1:45 pm Merrill Mendoza MD [Primary Care Provider] - 10/25/23 10:30 am Prescriptions/Medication Reconciliation: New amiodarone 200 mg Tablet 400 mg PO BID Qty: 84 0RF Eliquis 5 mg Tablet 2.5 mg PO BID Qty: 30 0RF atorvastatin 40 mg Tablet 80 mg PO HS Qty: 60 0RF clopidogrel 75 mg Tablet 75 mg PO DAILY Qty: 30 0RF bisoprolol fumarate 5 mg Tablet 5 mg PO DAILY Qty: 30 0RF bumetanide 1 mg Tablet 0.5 mg PO DAILY Qty: 30 0RF dapagliflozin propanediol [Farxiga] 10 mg Tablet 10 mg PO DAILY Qty: 30 0RF Entresto 24-26 mg Tablet 1 tab PO BID Qty: 30 0RF spironolactone 25 mg Tablet 12.5 mg PO DAILY Qty: 30 0RF Continued tamsulosin 0.4 MG capsule 0.4 mg PO HS aspirin 81 MG tablet,delayed release (DR/EC) 81 mg PO DAILY levothyroxine 125 mcg tablet 125 mcg PO DAILY Patient Comments: TAKE 1 TABLET BY MOUTH EVERY DAY Discontinued atorvastatin 20 MG tablet 20 mg PO HS amlodipine 5 MG tablet 5 mg PO DAILY metoprolol tartrate 50 mg tablet 50 mg PO BID Patient Comments: TAKE 1 TABLET BY MOUTH TWICE A DAY FOR 90 DAYS Problem Reconciliation Problems Reviewed?: Yes Patient Discharge Instructions ACTIVITY: Ambulate as tolerated DIET: low salt diet and cardiac Patient Instructions: Atrial Flutter, DI for Heart Failure, DI for Cardiac Catheterization, DI for Surgical Site Infection, DI for Acute Kidney Injury Print Language: German Providers Primary Care Provider: Merrill Mendoza Provider: Rebel Loyd Attending Provider: Rebel Loyd
--- NOTE | 2023-10-19 14:04 | CARE MANAGER ---
Called and spoke with patient regarding recent discharge. Patient stated that he is doing well, was able to start all new medication prescribed at discharge and was aware of scheduled f/u appts. No concerns voiced at time of call.
== END 2023-10-18 17:36 | disposition home or self-care (01) | DRG 321 ==
LOC: ER 10:56 → 2ND 11:16
PROVIDERS: Internal Medicine; Physician Assistant; Admitting Provider Internal Medicine; Emergency Provider Emergency Medicine; PCP Internal Medicine Adolescent Medicine; Visit Provider Internal Medicine
PROC: 027035Z Dilation of Coronary Artery, One Artery with Two Drug-eluting Intraluminal Devices, Percutaneous Approach (ICD-10-PCS; principal; 2023-10-15 13:05)
DX: I13.0 Hypertensive heart and chronic kidney disease with heart failure and stage 1 through stage 4 chronic kidney disease, or unspecified chronic kidney disease (principal); I21.4 Non-ST elevation (NSTEMI) myocardial infarction; I50.21 Acute systolic (congestive) heart failure; I48.92 Unspecified atrial flutter; N17.9 Acute kidney failure, unspecified; I25.10 Atherosclerotic heart disease of native coronary artery without angina pectoris; Z95.5 Presence of coronary angioplasty implant and graft; E03.9 Hypothyroidism, unspecified; E78.5 Hyperlipidemia, unspecified; N18.31 Chronic kidney disease, stage 3a; I25.5 Ischemic cardiomyopathy; E86.0 Dehydration
CPT/HCPCS: 36415; 70450; 71045; 71275; 80048; 80053; 80061; 82607; 82746; 83036; 83605; 83735; 83880; 84436; 84439; 84443; 84484; 85025; 85347; 85610; 85730; 92928; 93005; 93306; 93458; 99152; 99291; C1725; C1769; C1874; C9600; J0282; J1200; J1644; J2250; J3010; J7060; Q9967

== ENCOUNTER 2023-11-02 13:02 | Outpatient (CLI) | payer MEDICARE, SELFPAY ==
[2023-11-02 13:54] LABS: Basophils % 0.5 % (0.1-2.0); Eosinophils # 0.1 K/mm3 (0.0-0.4); Eosinophils % 0.9 % (0.1-12.0); Hemoglobin 15.6 g/dL (14.1-18.0); Lymphocytes % 24.5 % (10-50); Mean Corpuscular HGB Conc 31.3 g/dL (31.8-35.4); Mean Corpuscular Hemoglobin 31.9 pg (27.0-31.2); Mean Corpuscular Volume 101.9 fl (80-94); Mean Platelet Volume 7.1 fl (7.4-10.4); Monocytes # 0.6 K/mm3 (0.1-1.0); Monocytes % 6.9 % (1.7-9.3); Neutrophils # 5.5 K/mm3 (1.8-7.8); Neutrophils % 67.2 % (37.0-80.0); Platelet Count 328 K/mm3 (142-424); White Blood Count 8.2 K/mm3 (4.8-10.8)
[2023-11-02 14:17] LABS: Blood Urea Nitrogen 34 mg/dl (9-20); Calcium 8.8 mg/dl (8.4-10.2); Carbon Dioxide 26 mmol/L (22.0-30.0); Chloride 108 mmol/L (98-107); Estimated Glomerular Filt Rate 30 ml/min (>60); GFR (African American) 36 ML/MIN (>60); Glucose 97 mg/dl (74-100); Sodium 139 mmol/L (136-145)
[2023-11-02 15:15] LABS: Anion Gap 9.4 mEq/L (5-15); Potassium 4.4 mmoL/L (3.5-5.1)
== END 2023-11-02 23:59 | disposition home or self-care (01) ==
LOC: LAB 13:05
PROVIDERS: Physician Assistant; PCP Internal Medicine Adolescent Medicine; Visit Provider Internal Medicine
DX: I48.91 Unspecified atrial fibrillation (principal); I48.92 Unspecified atrial flutter; R55 Syncope and collapse; I25.5 Ischemic cardiomyopathy; I50.20 Unspecified systolic (congestive) heart failure; N18.31 Chronic kidney disease, stage 3a; Z95.5 Presence of coronary angioplasty implant and graft; E78.2 Mixed hyperlipidemia
CPT/HCPCS: 36415; 80048; 85025

== ENCOUNTER 2023-11-11 07:38 | Outpatient (CLI) | payer MEDICARE, SELFPAY ==
--- NOTE | 2023-11-11 07:45 | CA_ITS ---
APPROVED REPORT EXAM: Limited 2D Echocardiogram Optomechanical Technician: Gilda Genao CRT Ht: 5 ft 8 in Wt: 192lbs BSA: 2.01 BP: 106/61 mmHg Indications: EF CHECK PT IN LIFEVEST M-Mode Dimensions RVDd 2.39 cm (0.9-2.6) LVDd 5.61 cm (3.5-5.7) LVDs 4.22 cm (3.5-5.7) IVSd 0.96 cm (0.6-1.1) PWd 1.18 cm (0.6-1.1) EF (Teich) 48.50% FS 24.80% EDV (Teich) 154.30 mL ESV (Teich) 79.50 mL Other Information Study Quality: Technically Difficult Conclusion This is a limited TTE to evaluate for LV systolic function. Limited windows were obtained. Technically difficult study. The left ventricle is normal in size. There is increased LV wall thickness. The septum is asynchronous. There is low normal global LV systolic function. LVEF is 50%. Compared to prior study from 10/2023, the LVEF is now improved. Electronically signed by : Chaya Mcconnell MD 11/11/2023 11:43:44
== END 2023-11-11 23:59 | disposition home or self-care (01) ==
LOC: RT 07:39
PROVIDERS: PCP Internal Medicine Adolescent Medicine; Visit Provider Physician Assistant
DX: I50.21 Acute systolic (congestive) heart failure (principal)
CPT/HCPCS: 93308

== ENCOUNTER 2024-08-09 13:35 | Inpatient (IN) | payer MEDICARE, SELFPAY ==
--- OUTSIDE RECORDS SUMMARY | 2024-05-13 17:30 | XMS_ITS ---
Author Organization [facility] Address [address] [facility] [address] [place] [address] Care Team Providers Care Project Manager Interior Design Name Role Phone Merrill Mendoza Primary Care Provider Migration, Provider Unavailable Unavailable REASON FOR VISIT [facility] To [facility] Conversion Encounter Medications Medication SIG (Take, Route, [...] Active Encounters Encounter Location Date Provider Diagnosis [facility] [address] [address] 05/13/2024 Provider Migration Plan Of Treatment Next Appt Details Provider Name:Merrill Mendoza, 09/12/2024 10:00:00 AM, [address], [address], Progress Notes * Dioni VANESSA BDOB:[birth year] (88 yo M)Acc No.[id number]:05/13/2024 Patient: Dioni PRINCE Provider: Alpesh reza Migration :1935 A ge:88 Y S ex:Male Date:05/13/2024 Address:[address] [place] [address] [place], [place] Pcp:Merrill Mendoza Subjective: * Chief Complaints: * 1 . [facility] Conversion Encounter. * Medical History: * Medications: [...] Treatment: * * Electronic signature of Prov jose Migration on 08/09/2024 at 01:58 PM EDT Sign off status: Pending * Provider: Alpesh reza Migration Date: 05/13/2024 Generated for Tiffany butcher/Eliana/Camiitting on: 08/09/2024 01:58 PM EDT
--- OUTSIDE RECORDS SUMMARY | 2024-08-08 06:00 | XMS_ITS ---
Author Organization [facility] Address [address] [place] [address] Care Team Providers Care Legal Technician Name Role Phone Merrill Mendoza Primary Care Provider Allergies No Known Allergies REASON FOR VISIT [...] 08/08/2024 Encounters Encounter Location Date Provider Diagnosis [facility] [address] [address] 08/08/2024 Merrill Mendoza Herpes zoster with complication [...] Details Follow Up: prn, Reason: Provider Name:Merrill Mendoza, 09/12/2024 10:00:00 AM, [address] [place] [address], [phone], Progress Notes * Dioni VANESSA BDOB:[birth year] (88 yo M)Acc No.[id number]:08/08/2024 Progress Notes Patient: Dioni PRINCE Provider: Mindi Mendoza MD :1935 A ge:88 Y S ex:Male Date:08/08/2024 Address:[address] [place] [phone] Subjective: * Chief Complaints: * 1 . [...] Mendoza MD Date: 08/08/2024 Generated for Tiffany butcher/Eliana/Camiitting on: 08/09/2024 01:58 PM EDT History and Physical Notes * HPI (History of Present Illness) Category Sub-Category Detail Notes Category Not es gen Mr Vanessa prese nts to clinic today with shingles rash [...]
[2024-08-09] VITALS (27 sets, daily range): BP systolic 92–147; BP diastolic 63–121; PULSE 49–95; RESP 10–22; TEMP 36.6–36.9; O2SAT 93–99; BMI 28.7
--- NOTE | 2024-08-09 14:07 | XR_ITS ---
PROCEDURE INFORMATION: Exam: XR Chest Exam date and time: 08/09/2024 2:55 PM Age: 88 years old Clinical indication: Pain; Chest pressure; Additional info: Cp TECHNIQUE: Imaging protocol: Radiologic exam of the chest. Views: 1 view. COMPARISON: CT ANGIO CHEST 10/14/2023 8:58 AM FINDINGS: Tubes, catheters and devices: Defibrillator pads and pacer leads project over the patient. Lungs: No evidence of airspace infiltrate. No pulmonary edema. Pleural spaces: No visible pleural effusion. No pneumothorax. Heart/Mediastinum: Cardiomediastinal silouhette is within normal limits. Bones/joints: No evidence of acute osseous abnormality. IMPRESSION: No evidence of acute cardiopulmonary disease.
--- NOTE | 2024-08-09 14:12 | ECG_ITS ---
APPROVED REPORT Exam: Resting ECG HR:44 bpm ECG Measurements Heart Rate 44 AXES NV 284 P 63 QRSd 141 QRS 266 QT 522 T 101 QTc 474 Conclusion SINUS BRADYCARDIA WITH FIRST DEGREE AV BLOCK RIGHT AXIS DEVIATION [QRS AXIS > 100] RIGHT BUNDLE BRANCH BLOCK [120+ ms QRS DURATION, UPRIGHT V1, 40+ ms S IN I/aVL/V4/V5/V6] INFERIOR MYOCARDIAL INFARCTION , POSSIBLY ACUTE [40+ ms Q WAVE AND/OR ST/T ABNORMALITY IN II/aVF] ANTEROLATERAL MYOCARDIAL INFARCTION , OF INDETERMINATE AGE [40+ ms Q WAVE IN I/aVL/V3-V6] Minimal discordant ST elevation in inferior leads with right bundle branch block Electronically signed by : RALEIGH BROOKS, 08/11/2024 14:03:58
--- NOTE | 2024-08-09 14:12 | HMH.EDGENADL ---
Discharge Plan Disposition Patient Disposition: Admitted Condition: Critical Prescriptions Prescriptions: No Action atorvastatin 40 mg tablet 40 mg PO HS Qty: 90 3RF Eliquis 5 mg tablet 2.5 mg PO BID Qty: 60 5RF clopidogrel 75 mg tablet 75 mg PO DAILY Qty: 90 3RF dapagliflozin propanediol [Farxiga] 10 mg tablet 10 mg PO DAILY Qty: 90 3RF spironolactone 25 mg tablet 12.5 mg PO DAILY Qty: 90 3RF tamsulosin 0.4 MG capsule 0.4 mg PO HS levothyroxine 125 mcg tablet 125 mcg PO DAILY Patient Comments: TAKE 1 TABLET BY MOUTH EVERY DAY Referrals Follow up/Referrals: Merrill Mendoza MD [Primary Care Provider, Internal Medicine] - See instructions Clinical Impressions Clinical Impression: Bradycardia Print Language Print Language: Albanian Discharge ED Provider: Tho Ely Adult HPI <Maggy Webb APRN - Last Filed: 08/09/24 18:03> General Chief complaint: Weakness Stated complaint: Shingles medication causing low pulse Time Seen by Provider: 08/09/24 14:49 Mode of Arrival: Ambulatory Source of Information: Patient Description of Symptoms (Recalled from ER Triage Doc. by RN): pt states he woke up this am feeling whoozy, weak and with a lower HR (49BPM). However, pt states he has been feeling weak and unwell since . pt has an active outbreak on his L abd and back. pt denies pain. pt states he developed shingles last and started valaciclovir yesterday. Pt is unsure if that medication may be contributing to his symptoms. History of Present Illness HPI narrative: patient is an 88-year-old male PMHx history of atrial fibrillation, CKD, HFrEF, history of syncope, hyperlipidemia, hypertension, CAD, history of palpitations who presents to the ED with concerns of bradycardia. Patient states he was sitting when he was checking his pulse, noted that his pulse was in the 40s. Patient states he was not symptomatic at that time. Related Data Home Medications ?Medication ?Instructions ?Recorded ?Confirmed tamsulosin 0.4 mg capsule 0.4 mg PO HS 09/01/18 07/17/24 levothyroxine 125 mcg tablet 125 mcg PO DAILY 10/14/23 07/17/24 Previous Rx's ?Medication ?Instructions ?Recorded apixaban 5 mg tablet (Eliquis) 2.5 mg (1/2 x 5 mg) PO BID #60 tabs 11/02/23 clopidogrel 75 mg tablet 75 mg PO DAILY #90 tabs 11/02/23 dapagliflozin propanediol 10 mg 10 mg PO DAILY #90 tabs 11/02/23 tablet (Farxiga) spironolactone 25 mg tablet 12.5 mg (1/2 x 25 mg) PO DAILY #90 11/02/23 tabs atorvastatin 40 mg tablet 40 mg PO HS #90 tabs 03/15/24 Allergies Allergy/AdvReac Type Severity Reaction Status Date / Time No Known Allergies Allergy Verified 07/17/24 13:20 PFS <Maggy Webb APRN - Last Filed: 08/09/24 18:03> [facility] Disclaimer: The information contained in this section may have been updated after the patient was seen, as this information can be updated by other users. Medical History HLD (hyperlipidemia) Macular degeneration Cataract History of BPH Atrial flutter Afib Hypothyroid CAD (coronary artery disease) HTN (hypertension) Surgical History H/O heart artery stent Family History Father Family history of myocardial infarction Mother Aneurysm Social History Smoking Status: Former smoker second hand exposure: No alcohol intake: current alcohol intake frequency: holidays/special occasions only current occupational status: retired Travel in the last 8 weeks?: Inside the [place] household members: spouse housing: house caffeine: No Have you lived/traveled outside US in past 30 days?: No Contact w/someone who lives/traveled outside US past 30 days?: No Exposure to someone with infectious disease in past 14 days?: No Do you have a fever (greater than 100.4 F or 38 C)?: No Have you tested positive for COVID-19?: No Exposed to someone with COVID-19 in past 14 days?: No Do you have a sore throat?: No Do you have a cough?: No Do you have any weakness?: No Do you have any diarrhea?: No Are you experiencing any unusual bleeding?: No Do you have any muscle aches/pain?: No Do you have any abdominal pain?: No Are you experiencing loss of taste or smell?: No Other Medical History Have you received the Flu Vaccine for this season: No Have you received the Pneumonia Vaccine: Yes <Maggy Webb APRN - Last Filed: 08/09/24 18:03> ROS Obtained: Yes Systems reviewed as appropriate & no additional complaints except as documented Physical Exam <Maggy Webb APRN - Last Filed: 08/09/24 18:03> General General appearance: alert and in no apparent distress Head Head exam: atraumatic and normocephalic Eye Eye exam: Present normal appearance and PERRL ENT ENT exam: Present normal exam Neck Neck exam: Present normal inspection Chest Chest inspection: Present normal inspection and symmetric chest wall rise; Absent tenderness Respiratory Respiratory exam: Present normal lung sounds bilaterally Cardiovascular Cardiovascular exam: Present regular rate Abdominal Exam Abdominal exam: Present soft, tenderness (large shingles rash over LUQ ) and normal bowel sounds Extremities Exam Extremities exam: Present normal inspection and full ROM Back Exam Back exam: Present normal inspection and full ROM Neurological Exam Neurological exam: Present alert and oriented X3 Psychiatric Psychiatric exam: Present normal affect and normal mood Skin Skin exam: Present warm and dry Medical Decision Making <Maggy Webb APRN - Last Filed: 08/09/24 18:03> Medical Records Screening: Per USPSTF and CDC recommendations, given the prevalence of disease in our region, it is our hospital?s policy to screen for HIV and viral Hepatitis for all patients aged 18 and over and those with ongoing risk factors. Adriel Inquiry Pt receiving controlled substance: No Vital Signs: 08/09/24 13:47 08/09/24 14:22 08/09/24 14:48 Temperature 97.9 F Temperature Source Oral Pulse Rate 49 L 53 L Pulse Rate [Left] 49 L Respiratory Rate 14 18 17 Blood Pressure 143/73 H 133/71 Blood Pressure [Right Arm] 123/63 Blood Pressure Mean [Right Arm] 83 Blood Pressure Source Blood Pressure Source [Right Arm] Automatic Cuff Blood Pressure Position Blood Pressure Position [Right Arm] Sitting 02 Sat by Pulse Oximetry 97 Oxygen Delivery Method Room Air 08/09/24 15:33 08/09/24 15:57 08/09/24 16:15 Temperature 98.2 F Temperature Source Oral Pulse Rate 70 70 70 Pulse Rate [Left] Respiratory Rate 10 L 14 16 Blood Pressure 141/121 H 92/68 L 102/66 L Blood Pressure [Right Arm] Blood Pressure Mean [Right Arm] Blood Pressure Source Automatic Cuff Blood Pressure Source [Right Arm] Blood Pressure Position Sitting Blood Pressure Position [Right Arm] 02 Sat by Pulse Oximetry 98 98 Oxygen Delivery Method Room Air Room Air Room Air Lab Data Lab Results 08/09/24 14:17: WBC 7.2, RBC 5.10, Hgb 15.5, Hct 47.9, MCV 93.9, MCH 30.4, MCHC 32.4, RDW 14.6, Plt Count 216, MPV 9.4, Neut % (Auto) 51.2, Lymph % (Auto) 30.2, Bradley % (Auto) 16.9 H, Eos % (Auto) 1.0, Baso % (Auto) 0.4, Neut # (Auto) 3.7, Lymph # (Auto) 2.2, Bradley # (Auto) 1.2 H, Eos # (Auto) 0.1, Baso # (Auto) 0.0, Sodium 135 L, Potassium 4.2, Chloride 99, Carbon Dioxide 26, Anion Gap 14.2, BUN 29 H, Creatinine 1.90 H, Estimated Creat Clear 33, Estimated GFR 34 L, Est GFR ( Amer) 41 L, Glucose 106 H, Calcium 8.8, Total Bilirubin 0.9, AST 29, ALT 20, Alkaline Phosphatase 91, Troponin I < 0.01, Total Protein 7.8, Albumin 4.4, Globulin 3.4 H, Albumin/Globulin Ratio 1.3, HCV Ab TAD w/Rflx PCR Qn Negative, HIV Ag/Ab Combo Qual Negative 08/09/24 14:17 08/09/24 14:17 Orders (Tests/Meds): ED MEDICATIONS Discontinued Medications Generic Name Dose Route Start Last Admin Trade Name Freq PRN Reason Stop Dose Admin Atropine Sulfate 1 mg 08/09/24 15:43 08/09/24 15:44 Atropine 1mg/10ml Syringe (Crash Cart) IV 08/09/24 15:44 1 mg ONCE ONE Administration Diphenhydramine HCl 50 mg 08/09/24 15:05 08/09/24 16:27 Diphenhydramine 50mg/Ml Vial IV 08/09/24 15:06 50 mg ONCE ONE Administration Epinephrine HCl 0.01 mg 08/09/24 15:52 08/09/24 15:55 Epinephrine 1 Mg/Ml Ampul IV 08/09/24 15:53 0.01 mg ONCE ONE Administration Fentanyl Citrate 50 mcg 08/09/24 15:26 08/09/24 15:29 Fentanyl 100mcg/2ml Vial IV 08/09/24 15:27 50 mcg ONCE ONE Administration Fentanyl Citrate 50 mcg 08/09/24 15:42 08/09/24 15:45 Fentanyl 100mcg/2ml Vial IV 08/09/24 15:43 50 mcg ONCE ONE Administration Sodium Chloride 500 mls @ 999 mls/hr 08/09/24 14:51 08/09/24 14:54 Sod Chlor 0.9% 1000ml Bag IV 08/09/24 15:21 999 mls/hr .Q31M ONE Administration Cefazolin Sodium 2 gm/ Sodium 100 mls @ 200 mls/hr 08/09/24 15:05 08/09/24 16:26 Chloride IV 08/09/24 15:34 200 mls/hr PREOP ONE Administration Cefazolin Sodium 1 gm/ Sodium 50 mls @ 100 mls/hr 08/09/24 15:05 08/09/24 16:26 Chloride IV 08/09/24 15:34 100 mls/hr PREOP ONE Administration Sodium Chloride 1,000 mls @ 25 mls/hr 08/09/24 15:05 Sod Chlor 0.9% 1000ml Bag IV 08/10/24 16:04 .Q25H ONE Lidocaine/Epinephrine 20 ml 08/09/24 15:05 08/09/24 16:26 Lidocaine 1% W/Epi 1:100,000 20ml Vial SQ 08/09/24 15:06 20 ml ONCE ONE Administration Ondansetron HCl 4 mg 08/09/24 15:03 08/09/24 15:08 Ondansetron 4mg/2ml Vial IV 08/09/24 15:04 4 mg ONCE ONE Administration ORDERS Category Date Time Status CA echo limited Stat Exams 08/09/24 14:38 Completed CXR --portable [XR chest portable] Stat Exams 08/09/24 14:07 Completed CBC w/Auto Diff [Complete Blood Count Auto Diff] Stat Lab 08/09/24 14:17 Completed CMP [Comprehensive Metabolic Panel] Stat Lab 08/09/24 14:17 Completed HIV Combo Stat Lab 08/09/24 14:17 Completed Hepatitis C Ab Qual. W/ RFX Stat Lab 08/09/24 14:17 Completed Trop I [Troponin I] Stat Lab 08/09/24 14:17 Completed Medical Decision Narrative: In summary, patient is an 88-year-old male PMHx history of atrial fibrillation, CKD, HFrEF, history of syncope, hyperlipidemia, hypertension, CAD, history of palpitations who presents to the ED with concerns of bradycardia. Patient states he was sitting when he was checking his pulse, noted that his pulse was in the 40s. Patient states he was not symptomatic at that time. He did not have any chest pain or experience any palpitations. Of note, patient was diagnosed with shingles approximately 3 days ago, they are located on the left upper aspect of his abdomen. Yesterday he was started on Valtrex. No additional new medications. Upon initial evaluation, patient is alert and oriented, having conversation, denies any current symptoms at this time. He has a large area of erythema and vesicles on left upper quadrant of the abdomen wraps around to the left back. During my evaluation, patient became increasingly bradycardic. I immediately called the attending into the room to assume care. I was consulted by the GIOVANNA, and we discussed the complexity of problems being addressed. I approved the treatment and management plan for this patient's care in the emergency department, thus performing a substantial portion of the medical decision making. Tho Ely MD Patient is critically ill. After a short amount of observation time in the emergency department, on telemetry, he became bradycardic, with sinus bradycardia with rates in the 30s. He became asystolic briefly required 20 seconds of compressions and ACLS. He did not receive any epinephrine at this time and regained pulse on his own. 1 mg of atropine given with no effect. 10 mcg of push dose epinephrine administered with good effect, patient became sinus rhythm with rates in the 70s, but then developed a tachyarrhythmia with a wide-complex tachycardia for about 3 to 4 minutes. He was stable during this time and mentating appropriately. Considered amiodarone, but patient converted to a sinus rhythm on his own. On the telemetry, per my independent interpretation, it appeared that he was developing a heart block with a second-degree type II versus a third-degree with dropped beats. He began to bradycardia bradycardia down again, transcutaneous pads were placed on arrival, but now have initiated pacing for the patient. Emergently of consulted cardiology for concern for need for permanent pacemaker placement. I did an interactive discussion with Dr. Mccray who agrees and would like to activate the Preprint Analyst. Patient will be transferred in critically ill condition actively being transcutaneously paced with intermittent capture. <Tho Ely MD - Last Filed: 08/09/24 16:24> Vital Signs: 08/09/24 13:47 08/09/24 14:22 08/09/24 14:48 Temperature 97.9 F Temperature Source Oral Pulse Rate 49 L 53 L Pulse Rate [Left] 49 L Respiratory Rate 14 18 17 Blood Pressure 143/73 H 133/71 Blood Pressure [Right Arm] 123/63 Blood Pressure Mean [Right Arm] 83 Blood Pressure Source Blood Pressure Source [Right Arm] Automatic Cuff Blood Pressure Position Blood Pressure Position [Right Arm] Sitting 02 Sat by Pulse Oximetry 97 Oxygen Delivery Method Room Air 08/09/24 15:33 08/09/24 15:57 08/09/24 16:15 Temperature 98.2 F Temperature Source Oral Pulse Rate 70 70 70 Pulse Rate [Left] Respiratory Rate 10 L 14 16 Blood Pressure 141/121 H 92/68 L 102/66 L Blood Pressure [Right Arm] Blood Pressure Mean [Right Arm] Blood Pressure Source Automatic Cuff Blood Pressure Source [Right Arm] Blood Pressure Position Sitting Blood Pressure Position [Right Arm] 02 Sat by Pulse Oximetry 98 98 Oxygen Delivery Method Room Air Room Air Room Air Lab Data Lab Results 08/09/24 14:17: WBC 7.2, RBC 5.10, Hgb 15.5, Hct 47.9, MCV 93.9, MCH 30.4, MCHC 32.4, RDW 14.6, Plt Count 216, MPV 9.4, Neut % (Auto) 51.2, Lymph % (Auto) 30.2, Bradley % (Auto) 16.9 H, Eos % (Auto) 1.0, Baso % (Auto) 0.4, Neut # (Auto) 3.7, Lymph # (Auto) 2.2, Bradley # (Auto) 1.2 H, Eos # (Auto) 0.1, Baso # (Auto) 0.0, Sodium 135 L, Potassium 4.2, Chloride 99, Carbon Dioxide 26, Anion Gap 14.2, BUN 29 H, Creatinine 1.90 H, Estimated Creat Clear 33, Estimated GFR 34 L, Est GFR ( Amer) 41 L, Glucose 106 H, Calcium 8.8, Total Bilirubin 0.9, AST 29, ALT 20, Alkaline Phosphatase 91, Troponin I < 0.01, Total Protein 7.8, Albumin 4.4, Globulin 3.4 H, Albumin/Globulin Ratio 1.3, HCV Ab TAD w/Rflx PCR Qn Negative, HIV Ag/Ab Combo Qual Negative Orders (Tests/Meds): ED MEDICATIONS Discontinued Medications Generic Name Dose Route Start Last Admin Trade Name Freq PRN Reason Stop Dose Admin Atropine Sulfate 1 mg 08/09/24 15:43 08/09/24 15:44 Atropine 1mg/10ml Syringe (Crash Cart) IV 08/09/24 15:44 1 mg ONCE ONE Administration Diphenhydramine HCl 50 mg 08/09/24 15:05 08/09/24 16:27 Diphenhydramine 50mg/Ml Vial IV 08/09/24 15:06 50 mg ONCE ONE Administration Epinephrine HCl 0.01 mg 08/09/24 15:52 08/09/24 15:55 Epinephrine 1 Mg/Ml Ampul IV 08/09/24 15:53 0.01 mg ONCE ONE Administration Fentanyl Citrate 50 mcg 08/09/24 15:26 08/09/24 15:29 Fentanyl 100mcg/2ml Vial IV 08/09/24 15:27 50 mcg ONCE ONE Administration Fentanyl Citrate 50 mcg 08/09/24 15:42 08/09/24 15:45 Fentanyl 100mcg/2ml Vial IV 08/09/24 15:43 50 mcg ONCE ONE Administration Sodium Chloride 500 mls @ 999 mls/hr 08/09/24 14:51 08/09/24 14:54 Sod Chlor 0.9% 1000ml Bag IV 08/09/24 15:21 999 mls/hr .Q31M ONE Administration Cefazolin Sodium 2 gm/ Sodium 100 mls @ 200 mls/hr 08/09/24 15:05 08/09/24 16:26 Chloride IV 08/09/24 15:34 200 mls/hr PREOP ONE Administration Cefazolin Sodium 1 gm/ Sodium 50 mls @ 100 mls/hr 08/09/24 15:05 08/09/24 16:26 Chloride IV 08/09/24 15:34 100 mls/hr PREOP ONE Administration Sodium Chloride 1,000 mls @ 25 mls/hr 08/09/24 15:05 Sod Chlor 0.9% 1000ml Bag IV 08/10/24 16:04 .Q25H ONE Lidocaine/Epinephrine 20 ml 08/09/24 15:05 08/09/24 16:26 Lidocaine 1% W/Epi 1:100,000 20ml Vial SQ 08/09/24 15:06 20 ml ONCE ONE Administration Ondansetron HCl 4 mg 08/09/24 15:03 08/09/24 15:08 Ondansetron 4mg/2ml Vial IV 08/09/24 15:04 4 mg ONCE ONE Administration ORDERS Category Date Time Status CA echo limited Stat Exams 08/09/24 14:38 Completed CXR --portable [XR chest portable] Stat Exams 08/09/24 14:07 Completed CBC w/Auto Diff [Complete Blood Count Auto Diff] Stat Lab 08/09/24 14:17 Completed CMP [Comprehensive Metabolic Panel] Stat Lab 08/09/24 14:17 Completed HIV Combo Stat Lab 08/09/24 14:17 Completed Hepatitis C Ab Qual. W/ RFX Stat Lab 08/09/24 14:17 Completed Trop I [Troponin I] Stat Lab 08/09/24 14:17 Completed Medical Decision Narrative: In summary, patient is an 88-year-old male PMHx history of atrial fibrillation, CKD, HFrEF, history of syncope, hyperlipidemia, hypertension, CAD, history of palpitations who presents to the ED with concerns of bradycardia. Patient states he was sitting when he was checking his pulse, noted that his pulse was in the 40s. Patient states he was not symptomatic at that time. He did not have any chest pain or experience any palpitations. Of note, patient was diagnosed with shingles approximately 3 days ago, they are located on the left upper aspect of his abdomen. Yesterday he was started on Valtrex. No additional new medications. Upon initial evaluation, patient is alert and oriented, having conversation, denies any current symptoms at this time. He has a large area of erythema and vesicles on left upper quadrant of the abdomen wraps around to the left back. I was consulted by the GIOVANNA, and we discussed the complexity of problems being addressed. I approved the treatment and management plan for this patient's care in the emergency department, thus performing a substantial portion of the medical decision making. Tho Ely MD Patient is critically ill. After a short amount of observation time in the emergency department, on telemetry, he became bradycardic, with sinus bradycardia with rates in the 30s. He became asystolic briefly required 20 seconds of compressions and ACLS. He did not receive any epinephrine at this time and regained pulse on his own. 1 mg of atropine given with no effect. 10 mcg of push dose epinephrine administered with good effect, patient became sinus rhythm with rates in the 70s, but then developed a tachyarrhythmia with a wide-complex tachycardia for about 3 to 4 minutes. He was stable during this time and mentating appropriately. Considered amiodarone, but patient converted to a sinus rhythm on his own. On the telemetry, per my independent interpretation, it appeared that he was developing a heart block with a second-degree type II versus a third-degree with dropped beats. He began to bradycardia bradycardia down again, transcutaneous pads were placed on arrival, but now have initiated pacing for the patient. Emergently of consulted cardiology for concern for need for permanent pacemaker placement. I did an interactive discussion with Dr. Mccray who agrees and would like to activate the Preprint Analyst. Patient will be transferred in critically ill condition actively being transcutaneously paced with intermittent capture. Critical Care <Tho Ely MD - Last Filed: 08/09/24 16:24> Critical Care Time Critical Care Time: Yes Attestation: On 08/09/24, the high probability of a clinically significant, sudden or life threatening deterioration of the following system(s) required my full and direct attention, intervention and personal management. The time I documented below is in addition to time spent performing reported procedures but includes the following listed in this critical care notation. Total Time Total Critical Care Time: 120
[2024-08-09 14:24] LABS: Hematocrit 47.9 % (42.0-52.0); Hemoglobin 15.5 g/dL (14.1-18.0); Immature Granulocytes % 0.3 %; Mean Corpuscular HGB Conc 32.4 g/dL (31.8-35.4); Mean Corpuscular Hemoglobin 30.4 pg (27.0-31.2); Mean Corpuscular Volume 93.9 fl (80-94); Nucleated Red Blood Cells % 0 %; Platelet Count 216 K/mm3 (142-424); Red Blood Count 5.10 M/mm3 (4.60-6.20); Red Cell Distribution Width-SD 51.4 fL; White Blood Count 7.2 K/mm3 (4.8-10.8)
--- NOTE | 2024-08-09 14:30 | ECG_ITS ---
APPROVED REPORT Exam: Resting ECG HR:62 bpm ECG Measurements Heart Rate 62 AXES QRSd 149 QRS 78 QT 476 T 251 QTc 482 Conclusion ATRIAL FIBRILLATION WITH ABERRANT CONDUCTION OR VENTRICULAR PREMATURE COMPLEXES LEFT BUNDLE BRANCH BLOCK [120+ ms QRS DURATION, 80+ ms Q/S IN V1/V2, 85+ ms R IN I/aVL/V5/V6] ABNORMAL ECG Electronically signed by : RALEIGH BROOKS, 08/11/2024 14:04:20
[2024-08-09 14:35] LABS: Albumin Level 4.4 g/dl (3.5-5.0); Chloride 99 mmol/L (98-107); Sodium 135 mmol/L (136-145)
[2024-08-09 14:36] LABS: Potassium 4.2 mmoL/L (3.5-5.1)
[2024-08-09 14:38] LABS: Alanine Aminotransferase 20 U/L (12-78); Albumin/Globulin Ratio 1.3 (1.1-1.8); Alkaline Phosphatase 91 U/L (38-126); Anion Gap 14.2 mEq/L (5-15); Aspartate Amino Transferase 29 U/L (17-59); Bilirubin,Total 0.9 mg/dl (0.2-1.3); Blood Urea Nitrogen 29 mg/dl (9-20); Carbon Dioxide 26 mmol/L (22.0-30.0); Creatinine Clearance Estimated 33 mL/min (50-200); Creatinine,Serum 1.90 mg/dl (0.66-1.25); Estimated Glomerular Filt Rate 34 ml/min (>60); GFR (African American) 41 ML/MIN (>60); Globulin 3.4 g/dL (1.3-3.2); Total Protein,Serum 7.8 g/dl (6.3-8.2)
--- NOTE | 2024-08-09 14:38 | CA_ITS ---
APPROVED REPORT EXAM: Limited 2D and color flow Echocardiogram Band Reamer Machine Operator: RT Adriel(R) Ht: 5 ft 8 in Wt: 189lbs BSA: 1.99 BP: 117/65 mmHg Indications: post cardiac arrest, third-degree heart block LV Diastology E Decel Time 327 (160-240 msec) E/A Ratio 0.7 Mitral Valve MV E Max Cordell. 54.0 (40-130 cm/s) MV A Velocity 82.0 (40-130 cm/s) E/A Ratio 0.66 MV PHT 96.0 ms Other Information Study Quality: Technically Difficult Conclusion This is a limited TTE to evaluate for LV systolic function in the setting of recent third-degree heart block with plan for device placement. Technically difficult study. The left ventricle is normal in size. There is increased LV wall thickness. There is mild reduction global LV systolic function. Regional wall motion is difficult to evaluate in the setting of technically difficult study. LVEF is 45%. No evidence of pericardial effusion. Electronically signed by : Chaya Mcconnell MD 08/09/2024 15:18:08
--- NOTE | 2024-08-09 14:38 | PC.NURSE ---
Addendum entered by Nani Perkins RN 08/09/24 15:53: Correction- 1427 0.01 Epi administered Original Note: 1423 PT became tense unresponsive. HR went from 49 to 0. July, AERIAL PHOTOGRAPHER assessed for carotid pulse no pulse felt. Compressions started by Mindi Mayfield RN. after 20 seconds of compressions PT raised off bed altered, weak, pulse was felt at this time. Heart rate noted to be low 40's. 1424 1mg of atropine given per MD Sandi order 1426 1L warm NS infusing per MD Sandi order 1427 1 mg epi spritzer admin per MD sandi order 1429 PT heart rhythm noted jf be in V. Tach attempting to obtain another EKG, printed off from monitoring ystem. HR noted to be 130 1432 PT heart rate noted to be 48 1434 MD Solis speaking with MD Mahendra. Stat echo ordered per Mahendra. BP 132/65 RR 14 HR 56 1435 BP 131/71, RR 14 1443 US at bedside for stat echo
[2024-08-09 14:39] LABS: Calcium 8.8 mg/dl (8.4-10.2); Glucose 106 mg/dl (74-100)
--- NOTE | 2024-08-09 14:47 | IR_ITS ---
APPROVED REPORT Patient Location: Emergent Chaplain: Brandan Parker RT (R) PROCEDURES 1. Pocket formation for biventricular pacemaker generator with cardiac resynchronization/defibrillator therapy. 2. Placement of atrial sensing and pacing lead into the right atrial appendage. 3. Placement of a right ventricular sensing, pacing and shocking lead in the right ventricular apex. 4. Placement of left ventricular sensing pacing lead via the coronary sinus. 5. Permanent cardiac resynchronization therapy with ICD implantation/biventricular pacemaker. INDICATION Sinus Arrest with complete heart block, Asystole requiring continuous transcutaneous pacing, Cardiopulmonary arrest requiring chest compressions, Ventricular tachycardia, Ejection fraction less than 50% with anticipated RV pacing greater than 40% of the time, Informed consent was obtained prior to the procedure. COMPLICATIONS NONE Estimated Blood Loss: LESS THAN 10 ML TECHNIQUE 1% Lidocaine with epinephrine used to anesthetized the left anterior aspect of the chest. Scalpel was used to make the initial cutaneous incision while electrocautery was used to dissect down tinto the fascia. The fascia was lifted off the pectoralis muscle and digitally manipulated creating a pocket for the defibrillator. The patient was then placed in Trendelenburg position and the subclavian vein was accessed 3 times via the Selinger technique. A 8 [place] sheath was placed under fluoroscopic guidance into the subclavian vein. The dilator was removed from the sheath. Using fluoroscopic guidance, the ventricular lead was placed into the right ventricular apex, screwed and secured into place. Electronic interrogation proved acceptable thresholds and voltage within the lead. Using 3-0 silk, the ventricular lead was then secured into place and sheath peeled away. Following this, a 9.5 [place] sheath and dilator was then placed over one of the wires while keeping the other wire in place within the subclavian vein. The dilator was removed from the sheath. Using fluoroscopic guidance, contrast was used to visualize the coronary sinus, the left ventricular lead was placed into the coronary sinus. Electronic interrogation proved acceptable thresholds and voltage within the lead. Using 3-0 silk, the left ventricular lead was then secured into place and sheath peeled away.An additional 6 [place] fresh sheath and dilator was placed over the existing wire. Using fluoroscopic guidance, the atrial lead was then placed into the right atrial appendage and screwed and secured in place. Electrical interrogation demonstrated acceptable thresholds and voltage number. The atrial lead was then secured into place using 3-0 silk and sheath peeled away. 1 gram of Ancef was used to flush the pocket. All 3 leads were connected to generator and tested via computer. The defibrillator then secured to the fascia. Monocryl was used to close the subcutaneous layers while mick were used to close the cutaneous layer. A pressure dressing was placed and the patient was transferred to the postop holding area in stable condition for postoperative care. INTERROGATION Generator Model number: [id number] Generator Serial number: [id number] Atrial lead model number: [id number] Atrial lead serial number: [id number] P-wave: 3.4mV Impedance: 650ohms Threshold: 1.0v@0.4ms Right Ventricular lead model number: [id number] Right Ventricular lead serial number: [id number] Impedance: 680ohms Threshold: 0.625v@0.4ms Left Ventricular lead model number: [id number] Left Ventricular lead serial number: [id number] Impedance: 710ohms Threshold: 0.625v@0.5ms High Voltage: 49ohms Pacing Parameters: Mode: DDD Base/Max Track:60 ppm / 130 ppm No diaphragmatic stimulation at 10 volts. IMPRESSION 1. Successful Pocket formation for biventricular pacemaker generator with cardiac resynchronization/defibrillator therapy. 2. Successful placement of right atrial sensing and pacing lead into the right atrial appendage. 3. Successful placement of a right ventricular sensing, pacing and shocking lead in the right ventricular apex. 4. Successful placement of left ventricular sensing pacing lead via the coronary sinus. 5. Successful permanent cardiac resynchronization plus AICD generator device. PLAN 1. Postop wound care. Electronically signed by : Alcides Mccray MD 08/17/2024 12:41:33
[2024-08-09 14:54] LABS: Troponin I < 0.01 ng/ml (0.00-0.034)
[2024-08-09] MEDS: 0.9 % SODIUM CHLORIDE 1000ML 500 ML 999 ML IV (14:54)
--- NOTE | 2024-08-09 14:56 | PC.NURSE ---
1456 Provider at bed side. Pacing started per MD Agnieszka. HR 38.
--- NOTE | 2024-08-09 14:57 | PC.NURSE ---
1457 Pacing started by MD Solis 1458 Heart rate 35. Provider at bed side 1459 8 milliamps. Pacing at 70 no capture 1500 10 milliamps 1500 12 milliamps 1500 14 milliamps 1500 16 milliiamps 1500 18 milliamps 1501 22 milliamps 70 pacing 1501 24 milliamps 1501 Blood pressure 119/67, 15 RR, 99% O2. 1502 LAURENCE Alvarenga at bed side.
--- NOTE | 2024-08-09 15:05 | PC.NURSE ---
1504 26 Milliamps 1504 24 miliamps - Provider at bed side
[2024-08-09] MEDS: ONDANSETRON 4MG/2ML VIAL 4 MG IV (15:08)
--- NOTE | 2024-08-09 15:11 | PC.NURSE ---
1508 32 milliamps. 4MG Zofran. 50MCG Fentanyl.
--- NOTE | 2024-08-09 15:28 | PC.NURSE ---
1528 Provider at bed side 1528 36 milliamps 1538 38 milliamps, pacing 70. Good capture
[2024-08-09] MEDS: FENTANYL 100MCG/2ML VIAL 50 MCG IV ×2 (15:29→15:45)
--- NOTE | 2024-08-09 15:30 | PC.NURSE ---
1530 MD Solis and MD Hiram at bedside 1530 28 milliamps 1531 54 milliamps 1532 52 milliamps. 1533 BP 141/121, RR 15, O2 99%, Paced at 70
--- NOTE | 2024-08-09 15:41 | PC.NURSE ---
Radiology at bed side. 50 mcg of fentanyl admin by LEA Mayfield
[2024-08-09] MEDS: ATROPINE 1MG/10ML SYRINGE (CRASH CART) 1 MG IV (15:44)
--- NOTE | 2024-08-09 16:05 | PC.NURSE ---
Jerry called from [facility] and said they were ready for the patient. Ernst was called and advised.
--- NOTE | 2024-08-09 16:10 | PC.NURSE ---
ayesha TATE, Nani TATE and Daphnie TATE transported pt to incubator operator at this time
[2024-08-09 16:11] LABS: Hepatitis C Ab Qual. W/ RFX NEGATIVE (Negative)
[2024-08-09] MEDS: LIDOCAINE 1% W/EPI 1:100,000 20ML VIAL 20 ML SQ (16:26)
[2024-08-09] MEDS: IOPAMIDOL-370 (76%);100ML BOTTLE 25 ML IV (18:11)
--- NOTE | 2024-08-09 18:18 | XR_ITS ---
PROCEDURE INFORMATION: Exam: XR Chest Exam date and time: 08/09/2024 6:25 PM Age: 88 years old Clinical indication: Device placement; Other: Confirm pacemaker/aid placement TECHNIQUE: Imaging protocol: Radiologic exam of the chest. Views: 1 view. COMPARISON: CR XR CHEST PORTABLE 08/09/2024 2:55 PM FINDINGS: Tubes, catheters and devices: Interval placement of AICD with leads appearing appropriately positioned. Lungs: Bibasal subsegmental atelectasis. No evidence of congestive pulmonary edema. Pleural spaces: No visible pleural effusion. No pneumothorax. Heart/Mediastinum: Cardiomediastinal silouhette is within normal limits. Bones/joints: No evidence of acute osseous abnormality. IMPRESSION: Status post AICD placement with no evidence of immediate complication.
--- NOTE | 2024-08-09 18:50 | PC.NURSE ---
patient arrived in the icu and was taken to room 266
--- NOTE | 2024-08-09 19:17 | EXP.HP ---
History of Present Illness *Admission Date: 08/09/24 *Reason for visit:: Bradycardia *History of present illness: Patient is a 88-year-old male with past medical history of heart failure with reduced ejection fraction atrial flutter, atrial fibrillation, CAD who presents to the hospital due to low pulse rate. Patient did lose pulse in the hospital, patient had cardiac arrest, patient was immediately taken to the [facility] and was placed a pacemaker. At time of my evaluation patient denies chest pain shortness of breath nausea vomiting diarrhea constipation dysuria fevers and chills. [facility] Disclaimer: The information contained in this section may have been updated after the patient was seen, as this information can be updated by other users. Medical History Presence of combination internal cardiac defibrillator (ICD) and pacemaker HLD (hyperlipidemia) Macular degeneration Cataract History of BPH Atrial flutter Afib Hypothyroid CAD (coronary artery disease) HTN (hypertension) Surgical History H/O heart artery stent Family History Father Family history of myocardial infarction Mother Aneurysm Social History (Updated 08/09/24 @ 20:31 by Josee Loera RN) Smoking Status: Former smoker second hand exposure: No alcohol intake: current alcohol intake frequency: holidays/special occasions only current occupational status: retired Travel in the last 8 weeks?: Inside the [place] household members: spouse housing: house caffeine: No Have you lived/traveled outside [place] in past 30 days?: No Contact w/someone who lives/traveled outside [place] past 30 days?: No Exposure to someone with infectious disease in past 14 days?: No Do you have a fever (greater than 100.4 F or 38 C)?: No Have you tested positive for COVID-19?: No Exposed to someone with COVID-19 in past 14 days?: No Do you have a sore throat?: No Do you have a cough?: No Do you have any weakness?: No Do you have any diarrhea?: No Are you experiencing any unusual bleeding?: No Do you have any muscle aches/pain?: No Do you have any abdominal pain?: No Are you experiencing loss of taste or smell?: No Other Medical History Have you received the Flu Vaccine for this season: No Have you received the Pneumonia Vaccine: Yes Review of Systems Review of Systems Review of systems:: pertinent systems reviewed and negative unless documented below Meds Home Medications and Allergies Home Medications ?Medication ?Instructions ?Recorded ?Confirmed ?Type tamsulosin 0.4 mg capsule 0.4 mg PO HS 09/01/18 08/09/24 History levothyroxine 125 mcg tablet 125 mcg PO DAILY 10/14/23 08/09/24 History apixaban 5 mg tablet (Eliquis) 2.5 mg (1/2 x 5 mg) PO BID #60 tabs 11/02/23 08/09/24 Rx clopidogrel 75 mg tablet 75 mg PO DAILY #90 tabs 11/02/23 08/09/24 Rx dapagliflozin propanediol 10 mg 10 mg PO DAILY #90 tabs 11/02/23 08/09/24 Rx tablet (Farxiga) spironolactone 25 mg tablet 12.5 mg (1/2 x 25 mg) PO DAILY #90 11/02/23 08/09/24 Rx tabs atorvastatin 40 mg tablet 40 mg PO HS #90 tabs 03/15/24 08/09/24 Rx valacyclovir 1 gram tablet 1,000 mg PO BID 08/09/24 08/09/24 History New Prescriptions to Start Prescriptions: Allergies Allergy/AdvReac Type Severity Reaction Status Date / Time No Known Allergies Allergy Verified 07/17/24 13:20 Exam Data for Last 24 hours Vital signs and Labs for Last 24 Hours: Temp Pulse Resp BP Pulse Ox O2 Del Method 98.4 F 90 19 126/84 95 Room Air 08/09/24 18:20 08/09/24 18:35 08/09/24 18:35 08/09/24 18:35 08/09/24 18:35 08/09/24 18:35 Laboratory Results - last 24 hr 08/09/24 14:17: WBC 7.2, RBC 5.10, Hgb 15.5, Hct 47.9, MCV 93.9, MCH 30.4, MCHC 32.4, RDW 14.6, Plt Count 216, MPV 9.4, Neut % (Auto) 51.2, Lymph % (Auto) 30.2, Bowie % (Auto) 16.9 H, Eos % (Auto) 1.0, Baso % (Auto) 0.4, Neut # (Auto) 3.7, Lymph # (Auto) 2.2, Bowie # (Auto) 1.2 H, Eos # (Auto) 0.1, Baso # (Auto) 0.0, Sodium 135 L, Potassium 4.2, Chloride 99, Carbon Dioxide 26, Anion Gap 14.2, BUN 29 H, Creatinine 1.90 H, Estimated Creat Clear 33, Estimated GFR 34 L, Est GFR ( Amer) 41 L, Glucose 106 H, Calcium 8.8, Total Bilirubin 0.9, AST 29, ALT 20, Alkaline Phosphatase 91, Troponin I < 0.01, Total Protein 7.8, Albumin 4.4, Globulin 3.4 H, Albumin/Globulin Ratio 1.3, HCV Ab TAD w/Rflx PCR Qn Negative, HIV Ag/Ab Combo Qual Negative I & O for Last 24 hours: Intake & Output 08/06/24 08/07/24 08/08/24 08/09/24 23:59 23:59 23:59 23:59 Weight 85.729 kg Constitutional Constitutional: no acute distress *Routine HEENT Exam Head: Present normocephalic Eye: Present EOMI and PERRL ENT: Present mucous membranes moist *Routine Neck Exam Neck: Present supple; Absent lymphadenopathy *Routine Respiratory Exam Respiratory: Present CTA bilaterally *Routine Cardiovascular Exam Cardiovascular: Present RRR *Routine Abdominal Exam Abdominal: Present soft and normoactive bowel sounds; Absent tenderness *Routine Rectal Exam Rectal:: deferred *Routine Genitalia Exam Genitalia:: deferred *Routine Extremities Exam Extremities: Absent cyanosis, clubbing or edema *Routine Skin Exam Skin: Present warm; Absent rash *Routine Neurological Exam Neurological: Present alert and oriented X3 Assessment and Plan *Assessment and plan (1) Bradycardia: Status: Acute Category: Medical Code(s): R00.1 - Bradycardia, unspecified (2) Atrial fibrillation/flutter: Status: Acute Category: Medical Code(s): I48.91 - Unspecified atrial fibrillation; I48.92 - Unspecified atrial flutter (3) CKD stage 3a, GFR 45-59 ml/min: Status: Acute Category: Medical Code(s): N18.31 - Chronic kidney disease, stage 3a (4) HFrEF (heart failure with reduced ejection fraction): Status: Acute Category: Medical Code(s): I50.20 - Unspecified systolic (congestive) heart failure (5) Syncope and collapse: Status: Acute Category: Medical Code(s): R55 - Syncope and collapse (6) Atrial flutter: Status: Acute Category: Medical Code(s): I48.92 - Unspecified atrial flutter (7) Hypothyroidism: Status: Chronic Category: Medical Code(s): E03.9 - Hypothyroidism, unspecified (8) Hyperlipidemia: Status: Chronic Qualifiers: Hyperlipidemia type: mixed hyperlipidemia Qualified Code(s): E78.2 - Mixed hyperlipidemia Category: Medical Code(s): E78.5 - Hyperlipidemia, unspecified (9) Hypertension: Status: Chronic Category: Medical Code(s): I10 - Essential (primary) hypertension (10) CAD (coronary artery disease), hoh coronary artery: Status: Chronic Qualifiers: [place] vs. transplanted heart: hoh heart Associated angina: without angina Qualified Code(s): I25.10 - Atherosclerotic heart disease of hoh coronary artery without angina pectoris Category: Medical Code(s): I25.10 - Atherosclerotic heart disease of hoh coronary artery without angina pectoris Plan Patient is a 88-year-old male with past medical history of heart failure with reduced ejection fraction atrial flutter, atrial fibrillation, CAD who presents to the hospital due to low pulse rate. Patient did lose pulse in the hospital, patient had cardiac arrest, patient was immediately taken to the [facility] and was placed a pacemaker. At time of my evaluation patient denies chest pain shortness of breath nausea vomiting diarrhea constipation dysuria fevers and chills. Assessment and plan Bradycardia Syncope Cardiac arrest Status post AICD placement Cardiology following Resume home Plavix spironolactone Shingles Resume home valacyclovir CKD stage III Creatinine on admission 1.90 which is around patient baseline Continue to monitor BMP History of atrial fibrillation on Eliquis Resume home Eliquis HFrEF - compensated limited echo 07/11/2024 The left ventricle is normal in size. There is increased LV wall thickness. There is mild reduction global LV systolic function. Regional wall motion is difficult to evaluate in the setting of technically difficult study. LVEF is 45%. No evidence of pericardial effusion. Hyperlipidemia Resume home atorvastatin Hypothyroidism Resume home levothyroxine DVT prophylaxis-on Eliquis
[2024-08-09 20:16] LABS: POC Glucose,Bedside 102 (70-110)
[2024-08-09] MEDS: TAMSULOSIN 0.4MG CAPSULE 0.4 MG PO (22:16)
[2024-08-09] MEDS: ATORVASTATIN 40MG TABLET 40 MG PO (22:17)
[2024-08-09] MEDS: APIXABAN 5MG TABLET 2.5 MG PO (22:17)
[2024-08-09] MEDS: PATIENT'S OWN HOME MEDICATION (Valacyclovir 1 gram tablet) 1000 EACH PO (22:17)
[2024-08-10] VITALS (13 sets, daily range): BP systolic 108–133; BP diastolic 69–91; PULSE 64–83; RESP 14–19; TEMP 36.6–37.2; O2SAT 91–97; BMI 29.0
[2024-08-10 05:52] LABS: Hematocrit 45.0 % (42.0-52.0); Hemoglobin 15.2 g/dL (14.1-18.0); Immature Granulocytes % 0.3 %; Mean Corpuscular HGB Conc 33.8 g/dL (31.8-35.4); Mean Corpuscular Hemoglobin 31.9 pg (27.0-31.2); Mean Corpuscular Volume 94.5 fl (80-94); Nucleated Red Blood Cells % 0 %; Platelet Count 197 K/mm3 (142-424); Red Blood Count 4.76 M/mm3 (4.60-6.20); Red Cell Distribution Width-SD 51.5 fL; White Blood Count 7.5 K/mm3 (4.8-10.8)
[2024-08-10 06:06] LABS: Alanine Aminotransferase 17 U/L (12-78); Albumin Level 3.7 g/dl (3.5-5.0); Albumin/Globulin Ratio 1.3 (1.1-1.8); Alkaline Phosphatase 72 U/L (38-126); Anion Gap 12.2 mEq/L (5-15); Aspartate Amino Transferase 27 U/L (17-59); Bilirubin,Total 1.0 mg/dl (0.2-1.3); Blood Urea Nitrogen 23 mg/dl (9-20); Calcium 8.3 mg/dl (8.4-10.2); Carbon Dioxide 23 mmol/L (22.0-30.0); Chloride 103 mmol/L (98-107); Cholesterol 128 mg/dl (140-200); Creatinine Clearance Estimated 40 mL/min (50-200); Creatinine,Serum 1.60 mg/dl (0.66-1.25); Estimated Glomerular Filt Rate 41 ml/min (>60); GFR (African American) 50 ML/MIN (>60); Globulin 2.9 g/dL (1.3-3.2); Glucose 89 mg/dl (74-100); HDL Cholesterol 28 mg/dl (40-60); Magnesium 2.2 mg/dl (1.6-2.3); Potassium 4.2 mmoL/L (3.5-5.1); Sodium 134 mmol/L (136-145); Total Protein,Serum 6.6 g/dl (6.3-8.2); Triglycerides 154 mg/dl (30-150)
[2024-08-10] MEDS: APIXABAN 5MG TABLET 2.5 MG PO (08:30)
[2024-08-10] MEDS: CLOPIDOGREL 75MG TAB 75 MG PO (08:31)
[2024-08-10] MEDS: LEVOTHYROXINE 125MCG (0.125MG) TAB 125 MCG PO (08:31)
[2024-08-10] MEDS: DAPAGLIFLOZIN PROPANEDIOL 10 MG TABLET PO (08:31)
[2024-08-10] MEDS: SPIRONOLACTONE 25MG TABLET 12.5 MG PO (08:31)
[2024-08-10] MEDS: ACYCLOVIR 400MG TAB 800 MG PO (09:38)
--- NOTE | 2024-08-10 10:30 | P.PNANES_ITS ---
[facility] Disclaimer: The information contained in this section may have been updated after the patient was seen, as this information can be updated by other users. Medical History Presence of combination internal cardiac defibrillator (ICD) and pacemaker HLD (hyperlipidemia) Macular degeneration Cataract History of BPH Atrial flutter Afib Hypothyroid CAD (coronary artery disease) HTN (hypertension) Surgical History H/O heart artery stent Family History Father Family history of myocardial infarction Mother Aneurysm Social History (Updated 08/09/24 @ 20:31 by Josee Loera RN) Smoking Status: Former smoker second hand exposure: No alcohol intake: current alcohol intake frequency: holidays/special occasions only substance use type: denies use current occupational status: retired Travel in the last 8 weeks?: Inside the [place] household members: spouse housing: house caffeine: No [facility] Anesthesia Checklist Patient Identification Patient Identification: Arm Band Structural Data Admitted From: Emergency Dept Planned Operative Procedure/s: Biventricular Pacemaker Consent for Planned Operative Procedure(s) Verified: Yes Verified Documents: Surgical Consent and History and Physical NPO Status Verified Time NPO: 10:30 Additional verifications Anesthesia Reactions: No Airway Assessment Mallampati Score:: Class II C-Spine Mobility Assessed: Yes TMJ Mobility Assessed: Yes Neurological Assessment Level of Consciousness: Awake, Alert and Appropriate Anesthesia Plan Anesthesia Risk discussed: Yes Anesthesia Plan: Verified ASA Class: IV Anesthesia Type: MAC Preoperative Comments Pre-Operative Comments: Late Entry- Preoperative Assessment performed immediately prior to procedure yesterday 08/10/24
--- NOTE | 2024-08-10 12:53 | EXP.CARD.CON ---
History of Present Illness History of Present Illness Consult date: 08/10/24 Requesting physician: Lloyd Villasenor Chief complaint: Bradycardia and fatigue History of present illness: Hospitalist note: Patient is a 88-year-old male with past medical history of heart failure with reduced ejection fraction atrial flutter, atrial fibrillation, CAD who presents to the hospital due to low pulse rate. Patient did lose pulse in the hospital, patient had cardiac arrest, patient was immediately taken to the [facility] and was placed a pacemaker. At time of my evaluation patient denies chest pain shortness of breath nausea vomiting diarrhea constipation dysuria fevers and chills. Cardiology note: Patient is s/p MANAGER BUSINESS CONTINUITY-D placement yesterday for Vt arrest and 3rd degree AV block. Patient reports today is feeling good. Denies chest pain or soa. Morning labs reviewed ands table. Creatinine improving. patient requesting to go home. [facility] Disclaimer: The information contained in this section may have been updated after the patient was seen, as this information can be updated by other users. Medical History (Updated 08/10/24 @ 13:01 by Roopa Shane APRN) Presence of combination internal cardiac defibrillator (ICD) and pacemaker HLD (hyperlipidemia) Macular degeneration Cataract History of BPH Atrial flutter Afib Hypothyroid CAD (coronary artery disease) HTN (hypertension) Surgical History H/O heart artery stent Family History Father Family history of myocardial infarction Mother Aneurysm Social History (Updated 08/10/24 @ 10:31 by Everette Hebert CRNA) Smoking Status: Former smoker second hand exposure: No alcohol intake: current alcohol intake frequency: holidays/special occasions only substance use type: denies use current occupational status: retired Travel in the last 8 weeks?: Inside the [place] household members: spouse housing: house caffeine: No Have you lived/traveled outside [place] in past 30 days?: No Contact w/someone who lives/traveled outside US past 30 days?: No Exposure to someone with infectious disease in past 14 days?: No Do you have a fever (greater than 100.4 F or 38 C)?: No Have you tested positive for COVID-19?: No Exposed to someone with COVID-19 in past 14 days?: No Do you have a sore throat?: No Do you have a cough?: No Do you have any weakness?: No Do you have any diarrhea?: No Are you experiencing any unusual bleeding?: No Do you have any muscle aches/pain?: No Do you have any abdominal pain?: No Are you experiencing loss of taste or smell?: No Review of Systems Review of Systems Review of systems:: pertinent systems reviewed and negative unless documented below Constitutional Comments: Generalized weakness Exam Data for Last 24 hours Vital signs and Labs for Last 24 Hours: Temp Pulse Resp BP Pulse Ox O2 Del Method 98.8 F 73 16 127/84 97 Room Air 08/10/24 12:00 08/10/24 12:00 08/10/24 12:00 08/10/24 12:00 08/10/24 12:00 08/10/24 12:00 Laboratory Results - last 24 hr 08/09/24 14:17: WBC 7.2, RBC 5.10, Hgb 15.5, Hct 47.9, MCV 93.9, MCH 30.4, MCHC 32.4, RDW 14.6, Plt Count 216, MPV 9.4, Neut % (Auto) 51.2, Lymph % (Auto) 30.2, Bladen % (Auto) 16.9 H, Eos % (Auto) 1.0, Baso % (Auto) 0.4, Neut # (Auto) 3.7, Lymph # (Auto) 2.2, Bladen # (Auto) 1.2 H, Eos # (Auto) 0.1, Baso # (Auto) 0.0, Sodium 135 L, Potassium 4.2, Chloride 99, Carbon Dioxide 26, Anion Gap 14.2, BUN 29 H, Creatinine 1.90 H, Estimated Creat Clear 33, Estimated GFR 34 L, Est GFR ( Amer) 41 L, Glucose 106 H, Calcium 8.8, Total Bilirubin 0.9, AST 29, ALT 20, Alkaline Phosphatase 91, Troponin I < 0.01, Total Protein 7.8, Albumin 4.4, Globulin 3.4 H, Albumin/Globulin Ratio 1.3, HCV Ab TAD w/Rflx PCR Qn Negative, HIV Ag/Ab Combo Qual Negative 08/09/24 19:44: POC Glucose 102 08/10/24 05:17: WBC 7.5, RBC 4.76, Hgb 15.2, Hct 45.0, MCV 94.5 H, MCH 31.9 H, MCHC 33.8, RDW 14.8, Plt Count 197, MPV 9.4, Neut % (Auto) 66.1, Lymph % (Auto) 20.3, Bladen % (Auto) 12.2 H, Eos % (Auto) 0.8, Baso % (Auto) 0.3, Neut # (Auto) 5.0, Lymph # (Auto) 1.5, Bladen # (Auto) 0.9, Eos # (Auto) 0.1, Baso # (Auto) 0.0, Sodium 134 L, Potassium 4.2, Chloride 103, Carbon Dioxide 23, Anion Gap 12.2, BUN 23 H, Creatinine 1.60 H, Estimated Creat Clear 40, Estimated GFR 41 L, Est GFR ( Amer) 50 L D, Glucose 89, Calcium 8.3 L, Magnesium 2.2, Total Bilirubin 1.0, AST 27, ALT 17, Alkaline Phosphatase 72, Total Protein 6.6, Albumin 3.7 D, Globulin 2.9, Albumin/Globulin Ratio 1.3, Triglycerides 154 H, Cholesterol 128 L, LDL Cholesterol Direct 58.34 L, VLDL Cholesterol 31, HDL Cholesterol 28 L, Cholesterol/HDL Ratio 4.6 H I & O for Last 24 hours: Intake & Output 08/07/24 08/08/24 08/09/24 08/10/24 23:59 23:59 23:59 23:59 Intake Total 800 / 800 Output Total 500 / 800 1800 / 1800 Balance -500 / -200 -1000 / -1000 Weight 189 lb 191 lb 5.78 oz Constitutional Constitutional: no acute distress Routine Chest/Breast/Axilla Exam Comments: Pacemaker site-dressing is dry and intact. Minimal swelling or bruising noted. *Routine Respiratory Exam Respiratory: Present CTA bilaterally and symmetric chest movement *Routine Cardiovascular Exam Cardiovascular: Present RRR, Normal S1 and Normal S2 *Routine Abdominal Exam Abdominal: Present soft and normoactive bowel sounds; Absent tenderness *Routine Extremities Exam Extremities: Present full ROM and normal capillary refill; Absent edema *Routine Skin Exam Skin: Present intact, dry and warm Detailed Neck Exam: Thyroids Thyroid: Absent bruit Meds Home Medications and Allergies Home Medications ?Medication ?Instructions ?Recorded ?Confirmed ?Type tamsulosin 0.4 mg capsule 0.4 mg PO HS 09/01/18 08/09/24 History levothyroxine 125 mcg tablet 125 mcg PO DAILY 10/14/23 08/09/24 History apixaban 5 mg tablet (Eliquis) 2.5 mg (1/2 x 5 mg) PO BID #60 tabs 11/02/23 08/09/24 Rx clopidogrel 75 mg tablet 75 mg PO DAILY #90 tabs 11/02/23 08/09/24 Rx dapagliflozin propanediol 10 mg 10 mg PO DAILY #90 tabs 11/02/23 08/09/24 Rx tablet (Farxiga) spironolactone 25 mg tablet 12.5 mg (1/2 x 25 mg) PO DAILY #90 11/02/23 08/09/24 Rx tabs valacyclovir 1 gram tablet 1,000 mg PO BID 08/09/24 08/09/24 History atorvastatin 80 mg tablet 80 mg PO HS 08/10/24 08/10/24 History New Prescriptions to Start Prescriptions: Allergies Allergy/AdvReac Type Severity Reaction Status Date / Time No Known Allergies Allergy Verified 07/17/24 13:20 Assessment and Plan *Assessment and plan (1) HFrEF (heart failure with reduced ejection fraction): Status: Acute Category: Medical Code(s): I50.20 - Unspecified systolic (congestive) heart failure (2) JOAN (acute kidney injury): Status: Acute Category: Medical Code(s): N17.9 - Acute kidney failure, unspecified (3) Atrial fibrillation/flutter: Status: Acute Category: Medical Code(s): I48.91 - Unspecified atrial fibrillation; I48.92 - Unspecified atrial flutter (4) Bradycardia: Status: Acute Category: Medical Code(s): R00.1 - Bradycardia, unspecified (5) AV block, 3rd degree: Status: Acute Category: Medical Code(s): I44.2 - Atrioventricular block, complete Plan 3rd degree AV block Weakness VT/cardiac arrest s/p MANAGER BUSINESS CONTINUITY-D Hx of PAF S/p MANAGER BUSINESS CONTINUITY-D placement yesterday for secondary prevention Continue eliquis 2.5mg p.o. BID HFrEF EF 45%. Hold on RUBY ARB due to recent JOAN. Continue Aldactone and Jardiance CAD ROMAN in 199 and 10/2023 Continue plavix and statin trop negative on admission CKD creatinine 1.9 yesterday, improved to 1.6 today CV summary 08/10/2024: Patient is CV stable for discharge home. Please have patient follow-up with cardiology clinic in 1 week for reevaluation.
--- NOTE | 2024-08-10 13:20 | P.DS_ITS ---
General Admission date:: 08/09/24 Discharge date: 08/10/24 HPI HPI HPI: Patient is a 88-year-old male with past medical history of heart failure with reduced ejection fraction atrial flutter, atrial fibrillation, CAD who presents to the hospital due to low pulse rate. Patient did lose pulse in the hospital, patient had cardiac arrest, patient was immediately taken to the [facility] and was placed a pacemaker. At time of my evaluation patient denies chest pain shortness of breath nausea vomiting diarrhea constipation dysuria fevers and chills. Hospital Course Hospital Course Hospital Course: Pleasant 88-year-old male who presented to the ER because of feeling weak and fatigued. Had initiated treatment just recently for shingles. Has impressive shingles rash along his left torso. On arrival to the ER, patient was bradycardic and went into cardiac arrest. He responded well to resuscitation. Necessitated external pacing due to third-degree heart block. Cardiology was consulted and patient was taken to [facility] for placement of pacemaker. Did well overnight. Hemodynamically stable with no further events. Given his clinical stability, baseline labs, improving condition. Patient stable discharge home with close outpatient follow-up. Problems addressed as follows: 3rd degree AV block Weakness VT/cardiac arrest s/p MAINTENANCE SUPERVISOR-D Hx of PAF Patient had observed cardiac arrest in the ED due to heart block. Resuscitation was successful. Patient had no residual deficits. Alert and oriented after resuscitation. Necessitated external pacing. Cardiology consulted and was taken to [facility] for placement of MAINTENANCE SUPERVISOR-D. Overall doing well. Continuing home medications at this time including Eliquis 2.5 mg twice daily, Lipitor 80 mg nightly, Plavix 75 mg daily, Jardiance 10 mg daily, spironolactone 25 mg daily. Remained stable on telemetry overnight with paced rhythm. No further events. Tolerating p.o. intake and requesting to go home. Hemodynamically stable, will recommend follow-up with cardiology in the next 1 to 2-week HFrEF CAD EF 45%. Hold on RUBY ARB due to recent JOAN. Continue Aldactone and Jardiance -Received drug-eluting stents as recent as last October. Continues Plavix and statin. Troponins were negative on admission. JOAN on presentation, creatinine 1.9 on presentation, improved to 1.6 this morning. BUN 23. Making good urine Shingles: Continue valacyclovir. Rash scabbing. Has had vaccine, was old vaccine however. Recommend updated vaccine after rash resolves. Continue home medications including his dose of 0.4 mg nightly for BPH Continue levothyroxine 125 mcg daily Sent a short course of hydrocodone for pain related to placement of pacemaker Total time spent on discharge 32 minutes in counseling, documentation, chart review, and direct care with patient. Exam Data for Last 24 hours Vital signs and Labs for Last 24 Hours: Temp Pulse Resp BP Pulse Ox O2 Del Method 98.8 F 73 16 127/84 97 Room Air 08/10/24 12:00 08/10/24 12:00 08/10/24 12:00 08/10/24 12:00 08/10/24 12:00 08/10/24 12:00 Laboratory Results - last 24 hr 08/09/24 14:17: WBC 7.2, RBC 5.10, Hgb 15.5, Hct 47.9, MCV 93.9, MCH 30.4, MCHC 32.4, RDW 14.6, Plt Count 216, MPV 9.4, Neut % (Auto) 51.2, Lymph % (Auto) 30.2, [place]duff[place] % (Auto) 16.9 H, Eos % (Auto) 1.0, Baso % (Auto) 0.4, Neut # (Auto) 3.7, Lymph # (Auto) 2.2, [place]duff[place] # (Auto) 1.2 H, Eos # (Auto) 0.1, Baso # (Auto) 0.0, Sodium 135 L, Potassium 4.2, Chloride 99, Carbon Dioxide 26, Anion Gap 14.2, BUN 29 H, Creatinine 1.90 H, Estimated Creat Clear 33, Estimated GFR 34 L, Est GFR ( Amer) 41 L, Glucose 106 H, Calcium 8.8, Total Bilirubin 0.9, AST 29, ALT 20, Alkaline Phosphatase 91, Troponin I < 0.01, Total Protein 7.8, Albumin 4.4, Globulin 3.4 H, Albumin/Globulin Ratio 1.3, HCV Ab TAD w/Rflx PCR Qn Negative, HIV Ag/Ab Combo Qual Negative 08/09/24 19:44: POC Glucose 102 08/10/24 05:17: WBC 7.5, RBC 4.76, Hgb 15.2, Hct 45.0, MCV 94.5 H, MCH 31.9 H, MCHC 33.8, RDW 14.8, Plt Count 197, MPV 9.4, Neut % (Auto) 66.1, Lymph % (Auto) 20.3, [place]duff[place] % (Auto) 12.2 H, Eos % (Auto) 0.8, Baso % (Auto) 0.3, Neut # (Auto) 5.0, Lymph # (Auto) 1.5, [place]duff[place] # (Auto) 0.9, Eos # (Auto) 0.1, Baso # (Auto) 0.0, Sodium 134 L, Potassium 4.2, Chloride 103, Carbon Dioxide 23, Anion Gap 12.2, BUN 23 H, Creatinine 1.60 H, Estimated Creat Clear 40, Estimated GFR 41 L, Est GFR ( Amer) 50 L D, Glucose 89, Calcium 8.3 L, Magnesium 2.2, Total Bili sánchez 1.0, AST 27, ALT 17, Alkaline Phosphatase 72, Total Protein 6.6, Albumin 3.7 D, Globulin 2.9, Albumin/Globulin Ratio 1.3, Triglycerides 154 H, Cholesterol 128 L, LDL Cholesterol Direct 58.34 L, VLDL Cholesterol 31, HDL Cholesterol 28 L, Cholesterol/HDL Ratio 4.6 H I & O for Last 24 hours: Intake & Output 08/07/24 08/08/24 08/09/24 08/10/24 23:59 23:59 23:59 23:59 Intake Total 800 / 800 Output Total 500 / 800 1800 / 1800 Balance -500 / -200 -1000 / -1000 Weight 85.729 kg 86.8 kg Constitutional Constitutional: no acute distress, average body habitus, chronically ill appearing and cooperative *Routine HEENT Exam Head: Present normocephalic Eye: Present EOMI and PERRL ENT: Present mucous membranes moist *Routine Neck Exam Neck: Present supple; Absent lymphadenopathy Routine Chest/Breast/Axilla Exam Chest wall: Present pacemaker (Fresh pocket, slight amount of blood on bandage. No significant) *Routine Respiratory Exam Respiratory: Present CTA bilaterally; Absent rhonchi, wheezes or crackles *Routine Cardiovascular Exam Cardiovascular: Present RRR *Routine Abdominal Exam Abdominal: Present soft and normoactive bowel sounds; Absent tenderness *Routine Rectal Exam Patient deferred: visual exam *Routine Exam Patient deferred: penile exam *Routine Extremities Exam Extremities: Absent cyanosis, clubbing or edema *Routine Skin Exam Skin: Present warm and rash Comments: Vesicular rash with weeping blisters and scabbing in dermatomal distribution along left lower costal margin. Does not cross midline. Consistent with *Routine Neurological Exam Neurological: Present alert, oriented X3 and moving all extremities; Absent altered mental status Results Data Completed and Pending Labs on day of discharge: Labs from last 24 hours 08/10/24 08/09/24 08/09/24 05:17 19:44 14:17 WBC 7.5 7.2 RBC 4.76 5.10 Hgb 15.2 15.5 Hct 45.0 47.9 MCV 94.5 H 93.9 MCH 31.9 H 30.4 MCHC 33.8 32.4 RDW 14.8 14.6 Plt Count 197 216 MPV 9.4 9.4 Neut % (Auto) 66.1 51.2 Lymph % (Auto) 20.3 30.2 [place]duffie % (Auto) 12.2 H 16.9 H Eos % (Auto) 0.8 1.0 Baso % (Auto) 0.3 0.4 Neut # (Auto) 5.0 3.7 Lymph # (Auto) 1.5 2.2 [place]duffie # (Auto) 0.9 1.2 H Eos # (Auto) 0.1 0.1 Baso # (Auto) 0.0 0.0 Sodium 134 L 135 L Potassium 4.2 4.2 Chloride 103 99 Carbon Dioxide 23 26 Anion Gap 12.2 14.2 BUN 23 H 29 H Creatinine 1.60 H 1.90 H Estimated Creat Clear 40 33 Estimated GFR 41 L 34 L Est GFR ( Amer) 50 L D 41 L Glucose 89 106 H POC Glucose 102 Calcium 8.3 L 8.8 Magnesium 2.2 Total Bilirubin 1.0 0.9 AST 27 29 ALT 17 20 Alkaline Phosphatase 72 91 Troponin I < 0.01 Total Protein 6.6 7.8 Albumin 3.7 D 4.4 Globulin 2.9 3.4 H Albumin/Globulin Ratio 1.3 1.3 Triglycerides 154 H Cholesterol 128 L LDL Cholesterol Direct 58.34 L VLDL Cholesterol 31 HDL Cholesterol 28 L Cholesterol/HDL Ratio 4.6 H HCV Ab TAD w/Rflx PCR Qn Negative HIV Ag/Ab Combo Qual Negative DS: Diagnosis Discharge Diagnosis (1) HFrEF (heart failure with reduced ejection fraction): Status: Acute Code(s): I50.20 - Unspecified systolic (congestive) heart failure (2) JOAN (acute kidney injury): Status: Acute Code(s): N17.9 - Acute kidney failure, unspecified (3) Atrial fibrillation/flutter: Status: Acute Code(s): I48.91 - Unspecified atrial fibrillation; I48.92 - Unspecified atrial flutter (4) Bradycardia: Status: Acute Code(s): R00.1 - Bradycardia, unspecified (5) AV block, 3rd degree: Status: Acute Code(s): I44.2 - Atrioventricular block, complete Meds Home Medications and Allergies Home Medications ?Medication ?Instructions ?Recorded ?Confirmed ?Type tamsulosin 0.4 mg capsule 0.4 mg PO HS 09/01/18 History levothyroxine 125 mcg tablet 125 mcg PO DAILY 10/14/23 08/09/24 History apixaban 5 mg tablet (Eliquis) 2.5 mg (1/2 x 5 mg) PO BID #60 tabs 11/02/23 08/09/24 Rx clopidogrel 75 mg tablet 75 mg PO DAILY #90 tabs 10/1008/09/24 Rx dapagliflozin propanediol 10 mg 10 mg PO DAILY #90 tab s 11/02/23 08/09/24 Rx tablet (Farxiga) spironolactone 25 mg tablet 12.5 mg (1/2 x 25 mg) PO D AILY #90 11/02/23 08/09/24 Rx tabs valacyclovir 1 gram tablet 1,000 mg PO BID 08/09/24 History atorvastatin 80 mg tablet 80 mg PO HS 08/10/24 5 History hydrocodone 5 mg-acetaminophen 325 1 tab PO Q4HP PRN M ild To Moderate 08/10/24 Rx mg tablet Pain (1-6) 3 days #15 tabs New Prescriptions to Start Prescriptions: hydrocodone-acetaminophen Lloyd Villasenor Allergies Allergy/AdvReac Type Severity Reaction Status Date / Time No Known Allergies Allergy Verified 07/17/24 13:20 Discharge Plan Disposition Patient Disposition: Home, Self-Care Condition: Critical Discharge Order Discharge Orders: Discharge Order (Routine); Ordered 08/10/24 Ordered By: Lloyd Villasenor Follow up Plan Follow up with: Alcides Mccray MD [Staff Physician, Cardiology] - 08/16/24 11:30 am Merrill Mendoza MD [Primary Care Provider, Internal Medicine] - 08/15/24 11:30 am Prescriptions/Medication Reconciliation: New hydrocodone-acetaminophen 5-325 mg Tablet 1 tab PO Q4HP PRN (Reason: Mild To Moderate Pain (1-6)) 3 Days Qty: 15 0RF Continued Eliquis 5 mg tablet 2.5 mg PO BID Qty: 60 5RF clopidogrel 75 mg tablet 75 mg PO DAILY Qty: 90 3RF dapagliflozin propanediol [Farxiga] 10 mg tablet 10 mg PO DAILY Qty: 90 3RF spironolactone 25 mg tablet 12.5 mg PO DAILY Qty: 90 3RF tamsulosin 0.4 MG capsule 0.4 mg PO HS valacyclovir 1 gram tablet 1,000 mg PO BID atorvastatin 80 mg tablet 80 mg PO HS levothyroxine 125 mcg tablet 125 mcg PO DAILY Patient Comments: TAKE 1 TABLET BY MOUTH EVERY DAY Problem Reconciliation Problems Reviewed?: Yes Patient Discharge Instructions ACTIVITY: Continue current activity DIET: continue same diet Patient Instructions: DI for Syncope in Adults (Fainting), Heart Block -- Adult, DI for Heart Failure, Chronic Kidney Disease, DI for Bradycardia Print Language: Indonesian Providers Primary Care Provider: Merrill Mendoza Admit Provider: Lloyd Villasenor Attending Provider: Lloyd Villasenor
--- NOTE | 2024-08-10 13:45 | PC.NURSE ---
Bilateral 18g IVs discontinued at this time with tip intact. pt put clothes on and ambulated independently t/o the room. tolerated well. pt denies any pain. pt instructed not to elevate arm over his head for a week and no sudden movements. pt instructed to bring his pacemaker equpiment and any questions to his follow up appointment in a week. no complaints at this time
--- NOTE | 2024-08-10 13:55 | PC.NURSE ---
pt left the ICU at this time via wheelchair with icu staff
--- NOTE | 2024-08-10 13:57 | HMH.PHAINT1 ---
Pharmacy Intervention Comments: DISCHARGE COUNSELING COMPLETED WITH FAMILY IN ROOM. PT STATED HE 'DIDN'T WANT THOSE PAIN PILLS . INFORMED PATIENT HE DIDN'T HAVE TO PICK THEM UP FROM THE PHARMACY. VERBALIZED UNDERSTANDING
== END 2024-08-10 13:48 | disposition home or self-care (01) | DRG 242 ==
LOC: ER 13:57 → CATHLAB 18:36 → ICU 18:37
PROVIDERS: Internal Medicine; Nurse Practitioner; Admitting Provider Internal Medicine Adolescent Medicine; Emergency Provider Emergency Medicine; PCP Internal Medicine Adolescent Medicine; Visit Provider Internal Medicine Adolescent Medicine
PROC: 0JH609Z Insertion of Cardiac Resynchronization Defibrillator Pulse Generator into Chest Subcutaneous Tissue and Fascia, Open Approach (ICD-10-PCS; CPT 33249; principal; 2024-08-09 15:00)
DX: I44.2 Atrioventricular block, complete (principal); I46.2 Cardiac arrest due to underlying cardiac condition; N17.9 Acute kidney failure, unspecified; I13.0 Hypertensive heart and chronic kidney disease with heart failure and stage 1 through stage 4 chronic kidney disease, or unspecified chronic kidney disease; I50.22 Chronic systolic (congestive) heart failure; I48.92 Unspecified atrial flutter; I25.10 Atherosclerotic heart disease of native coronary artery without angina pectoris; I47.20 Ventricular tachycardia, unspecified; I48.0 Paroxysmal atrial fibrillation; B02.9 Zoster without complications; N40.0 Benign prostatic hyperplasia without lower urinary tract symptoms; E78.5 Hyperlipidemia, unspecified; N18.31 Chronic kidney disease, stage 3a; E03.9 Hypothyroidism, unspecified; Z95.5 Presence of coronary angioplasty implant and graft; Z79.01 Long term (current) use of anticoagulants; Z79.02 Long term (current) use of antithrombotics/antiplatelets; Z79.899 Other long term (current) drug therapy; Z87.891 Personal history of nicotine dependence
CPT/HCPCS: 36415; 71045; 80053; 80061; 80074; 82962; 83735; 84484; 85025; 87081; 87389; 92950; 93005; 93308; C1769; C1882; C1895; C1898; C1900; J0171; J0461; J1200; J2003; J2004; J2405; J2704; J3010; J7030; Q9967

== ENCOUNTER 2024-08-11 11:59 | Emergency (ER) | payer MEDICARE, SELFPAY ==
--- OUTSIDE RECORDS SUMMARY | 2024-05-13 17:30 | XMS_ITS ---
Author Organization [facility] Address [address] [facility] [address] [place] [address] Care Team Providers Care Music Artist Name Role Phone Merrill Mendoza Primary Care Provider [phone] Migration, Provider Unavailable Unavailable REASON FOR VISIT [facility] To [facility] Conversion Encounter Medications Medication SIG (Take, Route, Frequency, Duration) Notes Start Date End Date Status Levothyroxine Sodium 125 MCG 1 tab(s) or ally once a day; Duration: 90 Active Tamsulosin HCl 0.4 MG 1 cap(s) orally on ce a day; Duration: 90 Active Clopidogrel Bisulfate 75 MG 1 tab(s) ora lly once a day Active Farxiga 10 MG 1 tab(s) orally once a day Active Eliquis 2.5 MG 1 tab(s) orally 2 ti mes a day Active Spironolactone 25 MG 1/2 tab orally once a day Active Encounters Encounter Location Date Provider Diagnosis [facility] [address] [place] [address] 05/13/2024 Provider Migration Plan Of Treatment Next Appt Details Provider Name:Merrill Mendoza, 08/15/2024 11:30:00 AM, [address], [address], Provider Name:Merrill Mendoza, 09/12/2024 10:00:00 AM, [address], [address], Progress Notes * Dioni VANESSA BDOB:[birth year] (88 yo M)Acc No.[id number]:05/13/2024 Patient: Dioni PRINCE Provider: Alpesh Isabel :1935 A ge:88 Y S ex:Male Date:05/13/2024 Address:[address] [place], [place] [id number] Pcp:Merrill Mendoza Subjective: * Chief Complaints: * [facility]. * Medical History: * Medications: T aking Spironolactone 25 MG Tablet 1/2 tab orally once a day , Taking Eliquis 2.5 MG Tablet 1 tab(s) orally 2 times a day , Taking Farxiga 10 MG Tablet 1 tab(s) orally once a day , Taking Clopidogrel Bisulfate 75 MG Tablet 1 tab(s) orally once a day , Taking Tamsulosin HCl 0.4 MG Capsule 1 cap(s) orally once a day , Taking Levothyroxine Sodium 125 MCG Tablet 1 tab(s) orally once a day Objective: * Vitals: Assessment: Plan: * Treatment: * * Electronic signature of Prov ider Migration on 08/11/2024 at 12:06 PM EDT Sign off status: Pending * Provider: Alpesh Isabel Date: 05/13/2024 Generated for Tiffany butcher/Eliana/Oh on: 08/11/2024 12:06 PM EDT
--- OUTSIDE RECORDS SUMMARY | 2024-08-08 06:00 | XMS_ITS ---
Author Organization [facility] Address [address] [place] [address] Care Team Providers Care Plc Engineer Name Role Phone Merrill Mendoza Primary Care Provider [phone] Allergies No Known Allergies REASON FOR VISIT shingles on upper abdomen since , painful , achey Medications Medication SIG (Take, Route, Frequency, Duration) Notes Start Date End Date Status Farxiga 10 MG 1 tab(s) orally once a day Active Clopidogrel Bisulfate 75 MG 1 tab(s) ora lly once a day Active Eliquis 2.5 MG 1 tab(s) orally 2 ti mes a day Active Levothyroxine Sodium 125 MCG 1 tab(s) or ally once a day; Duration: 90 Active Tamsulosin HCl 0.4 MG 1 cap(s) orally on ce a day; Duration: 90 Active Valtrex 1 GM 1 tablet Orally twic e a day; Duration: 10 days 08/08/2024 Active Spironolactone 25 MG 1/2 tab orally once a day Active Lidocaine 4 % 1 patch as needed Externally daily; Duration: 30 days 08/08/2024 Active Vital Signs Temperature 98.4 degrees Fahrenheit 08/09/19 25 Blood pressure systolic 118 mm Hg 08/09/19 25 Blood pressure diastolic 72 mm Hg 025 Heart Rate 68 /min 08/08/2024 Height 68.5 in 08/08/2024 Weight 189 lbs 08/08/2024 BMI 28.32 kg/m2 08/08/2024 Encounters Encounter Location Date Provider Diagnosis [facility] [address] [address] 08/08/2024 Merrill Mendoza Herpes zoster with complication B02.8 Assessments Encounter Date Diagnosis (ICD Code) Assessment Notes Treatment Notes Treatment Clinical Notes Section Notes 08/08/2024 Herpes zoster with complication (ICD-10 - B02.8) Discussed herpes zoster, etiology and expected course. Start antiviral as listed above. Gabapentin and lidocaine patches PRN for pain. Discussed s/s of dissemination and worsening condition that warrant FU. Advised that if symptoms do not improve or pain worsens can refer to pain management for further treatment Plan Of Treatment Medication Medication Name Sig Start Date Stop Date Notes Valtrex 1 GM 1 tablet Orally twic e a day; Duration: 10 days 08/08/2024 Lidocaine 4 % 1 patch as needed Ex ternally daily; Duration: 30 days 08/08/2024 Treatment Notes Assessment Notes Herpes zoster with complication Discusse d herpes zoster, etiology and expected course. Start antiviral as listed above. Gabapentin and lidocaine patches PRN for pain. Discussed s/s of dissemination and worsening condition that warrant FU. Advised that if symptoms do not improve or pain worsens can refer to pain management for further treatment Next Appt Details Follow Up: prn, Reason: Provider Name:Merrill Thompson Reji, 08/15/2024 11:30:00 AM, [address] [place] [address], [phone], Provider Name:Merrill Mendoza, 09/12/2024 10:00:00 AM, [address] [place] [address], [phone], Progress Notes * Dioni VANESSA BDOB:[birth year] (88 yo M)Acc No.[id number]:08/08/2024 Progress Notes Patient: Dioni PRINCE Provider: Mindi Mendoza MD :1935 A ge:88 Y S ex:Male Date:08/08/2024 Address:[address] [place] [address] Subjective: * Chief Complaints: * 1 . shingles on upper abdomen since , painful , achey. * HPI: g en: Mr Vanessa presents to clinic today with shingles rash that first appeared on 08/03. He is also experiencing flu like symptoms of myalgias, chills and generalized fatigue. Rash appears in a dermatomal pattern with vesicular lesions that are not yet crusted. Pain is tolerable right now taking tylenol, worse at night. We discussed treatment options with valtex and lidocaine patch. He would like to avoid taking gabapentin right now due to sedating side effects as he cares for his at home. * Medical History: H TN, HLD, Acquired hypothyroidism, BPH, A fib. * Medications: T aking Spironolactone 25 MG [...] 1 tab(s) orally once a day , Medication List reviewed and reconciled with the patient * Allergies: N .K.D.A. Objective: * Vitals: N urse: dw, Pain: 3, Temp: 98.4, RR: 20, HR: 68, BP: 118/72, Ht: 68.5, Wt: 189, BMI:28.32. * Examination: G eneral Examination: General P leasant and Cooperative, NAD on RA,. Heart: R egular Rate and Rhythm, no murmur, rubs or gallops. Lungs: L CTAB, No wheezes, crackles or rhonchi, Good air movement,. Skin: m ultiple vesicular lesions that are not yet crusted on dermatomal pattern on thoracic trunk around T6-T8. Assessment: * Assessment: 1. H erpes zoster with complication - B02.8 (Primary) Plan: * Treatment: * Follow Up: p rn * * Sign off status: Completed true * Provider: Mindi Mendoza MD Date: 08/08/2024 Generated for Tiffany butcher/Eliana/Marifersmitting on: 08/11/2024 12:06 PM EDT History and Physical Notes * HPI (History of Present Illness) Category Sub-Category Detail Notes Category Not es gen Mr Rasheeda evangelista nts to clinic today with shingles rash that first appeared on 08/03. He is also experiencing flu like symptoms of myalgias, chills and generalized fatigue. Rash appears in a dermatomal pattern with vesicular lesions that are not yet crusted. Pain is tolerable right now taking tylenol, worse at night. We discussed treatment options with valtex and lidocaine patch. He would like to avoid taking gabapentin right now due to sedating side effects as he cares for his at home. Examination Category Sub-Category Detail Notes Category Not es General Examination Heart: Regular Rate and Rhythm, no murmur, rubs or gallops Lungs: LCTAB, No wheezes, c rackles or rhonchi, Good air movement, Skin: multiple vesicular l esions that are not yet crusted on dermatomal pattern on thoracic trunk around T6-T8 General Pleasant and Coopera tive, NAD on RA,
[2024-08-11 12:01] VITALS: BP 104/70; RESP 18; TEMP 36.6; O2SAT 98; BMI 28.7
[2024-08-11 12:05] VITALS: BP 104/70; PULSE 70; RESP 18; TEMP 36.6; O2SAT 98; BMI 28.7
--- OUTSIDE RECORDS SUMMARY | 2024-08-11 12:07 | XMS_ITS | Patient Health Record ---
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 Name Role Phone JaneecindyHangMerrill Primary Care Provider Migration, Provider Unavailable Unavailable Allergies No Known Allergies Results Component Value Reference Range Notes CBC (INCLUDES DIFF/PLT) (639 9) Reviewed date:09/29/2023 02:18:15 PM Interpretation: Performing Lab:CB, [employer] [facility] [id number] [facility], [facility] ClinicBwjpPS[address] Aldo Jaramillo Notes/Report: FASTING: YES FASTING:YES NON-FASTING; NON-FASTING; NON-FASTING; NON-FASTING; NON-FAST WHITE BLOOD CELL COUNT 8.7 3.8-10.8 Thousand/ uL RED BLOOD CELL COUNT 5.23 4.20-5.80 Million/uL HEMOGLOBIN 16.8 13.2-17.1 g/dL HEMATOCRIT 50.9 38.5-50.0 % MCV 97.3 80.0-100.0 fL MCH 32.1 27.0-33.0 pg MCHC 33.0 32.0-36.0 g/dL RDW 13.7 11.0-15.0 % PLATELET COUNT 247 140-400 Thousand/uL MPV 10.3 7.5-12.5 fL ABSOLUTE NEUTROPHILS 5290 0018-1664 cells/uL ABSOLUTE LYMPHOCYTES 2506 850-3900 cells/uL ABSOLUTE MONOCYTES 774 200-950 cells/uL ABSOLUTE EOSINOPHILS 104 15-500 cells/uL ABSOLUTE BASOPHILS 26 0-200 cells/uL NEUTROPHILS 60.8 LYMPHOCYTES 28.8 MONOCYTES 8.9 EOSINOPHILS 1.2 BASOPHILS 0.3 COMPREHENSIVE METABOLIC PANE L (98318) Reviewed date:09/29/2023 02:18:15 PM Interpretation: Performing Lab:[facility] [id number] [facility], [facility] ClinicUdocHK[address] Aldo Jaramillo Notes/Report: NON-FASTING; NON-FASTING; NON-FASTING; NON-FASTING; [...] 19 10-35 U/L ALT 21 9-46 U/L LIPID PANEL, STANDARD (7600) Reviewed date:09/29/2023 02:18:15 PM Interpretation: Performing Lab:[facility] [id number] [facility], [facility] ClinicJnvcPG[address] Aldo Jaramillo Notes/Report: NON-FASTING; NON-FASTING; NON-FASTING; NON-FASTING; NON-FAST FASTING:YES FASTING: YES CHOLESTEROL, TOTAL 156 <200 mg/dL HDL CHOLESTEROL 43 > OR = 40 mg/dL TRIGLYCERIDES 128 <150 mg/dL LDL-CHOLESTEROL 91 Reference range: <100 Desirable range <100 mg/dL for primary prevention; <70 mg/dL for patients with CHD or diabetic patients with > or = 2 CHD risk factors. LDL-C is now calculated using the Thad-Limon calculation, which is a validated novel method providing better accuracy than the Friedewald equation in the estimation of LDL-C. Thad NORMAN et al. KARI. 2013;310(08): 5506-8855 (http://education.Enconcert.Ubicom/faq/PWQ334) CHOL/HDLC RATIO 3.6 <5.0 (calc) NON HDL CHOLESTEROL 113 <130 mg/dL (calc) For patients with diabetes plus 1 major ASCVD risk factor, treating to a non-HDL-C goal of <100 mg/dL (LDL-C of <70 mg/dL) is considered a therapeutic option. THYROID PANEL WITH TSH (7444 ) Reviewed date:09/29/2023 02:18:15 PM Interpretation: Performing Lab:[facility], DailyDigitalCrbdJB[address] Aldo Jaramillo Notes/Report: NON-FASTING; NON-FASTING; NON-FASTING; NON-FASTING; NON-FAST FASTING:YES FASTING: YES T3 UPTAKE 36 22-35 % T4 (THYROXINE), TOTAL 9.2 4.9-10.5 mcg/dL FREE T4 INDEX (T7) 3.3 1.4-3.8 TSH 0.62 0.40-4.50 mIU/L THYROID PANEL WITH TSH (7444 ) Reviewed date:10/26/2023 03:58:52 PM Interpretation: Performing Lab:[facility] [address] [employer], DailyDigitalKkrvRE[address] Aldo Jaramillo Notes/Report: NON-FASTING; NON-FASTING; NON-FASTING; NON-FASTING T3 UPTAKE 36 22-35 % T4 (THYROXINE), TOTAL 8.6 4.9-10.5 mcg/dL FREE T4 INDEX (T7) 3.1 1.4-3.8 TSH 5.53 0.40-4.50 mIU/L COMPREHENSIVE METABOLIC PANE L (20448) Reviewed date:10/26/2023 03:58:52 PM Interpretation: Performing Lab:[facility] [address] [employer], DailyDigitalMxqrHD[address] Aldo Jaramillo Notes/Report: NON-FASTING; NON-FASTING; NON-FASTING; NON-FASTING GLUCOSE 102 65-99 mg/dL Fasting reference interval For someone without known diabetes, a glucose value between 100 and 125 mg/dL is consistent with prediabetes and should be confirmed with a follow-up test. UREA NITROGEN (BUN) 33 7-25 mg/dL CREATININE 1.98 0.70-1.22 mg/dL EGFR 32 > OR = 60 mL/min/1.73m2 BUN/CREATININE RATIO 17 6-22 (calc) SODIUM 141 135-146 mmol/L POTASSIUM 4.7 3.5-5.3 mmol/L CHLORIDE 107 98-110 mmol/L CARBON DIOXIDE 24 20-32 mmol/L CALCIUM 9.1 8.6-10.3 mg/dL PROTEIN, TOTAL 7.3 6.1-8.1 g/dL ALBUMIN 4.2 3.6-5.1 g/dL GLOBULIN 3.1 1.9-3.7 g/dL (calc) ALBUMIN/GLOBULIN RATIO 1.4 1.0-2.5 (calc) BILIRUBIN, TOTAL 0.7 0.2-1.2 mg/dL ALKALINE PHOSPHATASE 110 35-144 U/L AST 19 10-35 U/L ALT 20 9-46 U/L MAGNESIUM (622) Reviewed date:10/26/2023 03:58:52 PM Interpretation: Performing Lab:[facility] [address] [employer], [facility] ClinicUfygAG[address] Aldo Jaramillo Notes/Report: NON-FASTING; NON-FASTING; NON-FASTING; NON-FASTING MAGNESIUM 2.4 1.5-2.5 mg/dL CBC (INCLUDES DIFF/PLT) (639 9) Reviewed date:10/26/2023 03:58:52 PM Interpretation: Performing Lab:[facility] [id number] [employer], [place] StarPpnfVG[address] Aldo Jaramillo Notes/Report: NON-FASTING; NON-FASTING; NON-FASTING; NON-FASTING WHITE BLOOD CELL COUNT 7.3 3.8-10.8 Thousand/ uL RED BLOOD CELL COUNT 5.03 4.20-5.80 Million/uL HEMOGLOBIN 16.1 13.2-17.1 g/dL HEMATOCRIT 49.5 38.5-50.0 % MCV 98.4 80.0-100.0 fL MCH 32.0 27.0-33.0 pg MCHC 32.5 32.0-36.0 g/dL RDW 13.4 11.0-15.0 % PLATELET COUNT 287 140-400 Thousand/uL MPV 10.2 7.5-12.5 fL ABSOLUTE NEUTROPHILS 5015 1595-8759 cells/uL ABSOLUTE LYMPHOCYTES 1213 544-1421 cells/uL ABSOLUTE MONOCYTES 818 200-950 cells/uL ABSOLUTE EOSINOPHILS 88 15-500 cells/uL ABSOLUTE BASOPHILS 29 0-200 cells/uL NEUTROPHILS 68.7 LYMPHOCYTES 18.5 MONOCYTES 11.2 EOSINOPHILS 1.2 BASOPHILS 0.4 PSA, TOTAL (5363) Reviewed date:09/29/2023 02:18:15 PM Interpretation: Performing Lab:[facility] [id number] [employer] [facility], [place] MyuzVB[address] Aldo Jaramillo Notes/Report: NON-FASTING; NON-FASTING; NON-FASTING; NON-FASTING; [...] of the presence or absence of disease. LIPID PANEL, STANDARD (7600) Reviewed date:05/12/2024 03:00:07 PM Interpretation: Performing Lab:[facility] Koyq6620 [employer] [facility], [place] TwpzHM[address] Aldo Jaramillo Notes/Report: FASTING: NO FASTING:NO NON-FASTING; NON-FASTING; NON-FASTING; NON-FASTING CHOLESTEROL, TOTAL 165 <200 mg/dL HDL CHOLESTEROL 50 > OR = 40 mg/dL TRIGLYCERIDES 123 <150 mg/dL LDL-CHOLESTEROL 93 Reference range: <100 Desirable range <100 mg/dL for primary prevention; <70 mg/dL for patients with CHD or diabetic patients with > or = 2 CHD risk factors. LDL-C is now calculated using the Thad-Ashly calculation, which is a validated novel method providing better accuracy than the Friedewald equation in the estimation of LDL-C. Thad NORAMN et al. KARI. 2013;310(19): 5652-1447 (http://education.Enconcert.com/faq/WFK296) CHOL/HDLC RATIO 3.3 <5.0 (calc) NON HDL CHOLESTEROL 115 <130 mg/dL (calc) For patients with diabetes plus 1 major ASCVD risk factor, treating to a non-HDL-C goal of <100 mg/dL (LDL-C of <70 mg/dL) is considered a therapeutic option. COMPREHENSIVE METABOLIC PANE (57025) Reviewed date:05/12/2024 03:00:08 PM Interpretation: Performing Lab:[facility], [facility] [id number] [employer], Pole StarYmxbMD[address] Aldo Jaramillo Notes/Report: NON-FASTING; NON-FASTING; NON-FASTING; NON-FASTING FASTING:NO FASTING: NO GLUCOSE 95 65-139 mg/dL Non-fasting reference interval UREA NITROGEN (BUN) 29 7-25 mg/dL CREATININE 1.82 0.70-1.22 mg/dL EGFR 36 > OR = 60 mL/min/1.73m2 BUN/CREATININE RATIO 16 6-22 (calc) SODIUM 140 135-146 mmol/L POTASSIUM 5.0 3.5-5.3 mmol/L CHLORIDE 106 98-110 mmol/L CARBON DIOXIDE 26 20-32 mmol/L CALCIUM 9.7 8.6-10.3 mg/dL PROTEIN, TOTAL 7.4 6.1-8.1 g/dL ALBUMIN 4.3 3.6-5.1 g/dL GLOBULIN 3.1 1.9-3.7 g/dL (calc) ALBUMIN/GLOBULIN RATIO 1.4 1.0-2.5 (calc) BILIRUBIN, TOTAL 0.8 0.2-1.2 mg/dL ALKALINE PHOSPHATASE 100 35-144 U/L AST 22 10-35 U/L ALT 24 9-46 U/L MAGNESIUM (622) Reviewed date:05/12/2024 03:00:08 PM Interpretation: Performing Lab:[facility], [facility] [address], Pole StarXlrxMA[address] Aldo Jaramillo Notes/Report: NON-FASTING; NON-FASTING; NON-FASTING; NON-FASTING FASTING:NO FASTING: NO MAGNESIUM 2.3 1.5-2.5 mg/dL CBC (INCLUDES DIFF/PLT) (639 9) Reviewed date:05/12/2024 03:00:08 PM Interpretation: Performing Lab:[facility], [facility] [id number] [facility], Jose SanchezVgcoLC[address] Aldo Jaramillo Notes/Report: NON-FASTING; NON-FASTING; NON-FASTING; NON-FASTING FASTING:NO FASTING: NO WHITE BLOOD CELL COUNT 8.9 3.8-10.8 Thousand/ uL RED BLOOD CELL COUNT 5.12 4.20-5.80 Million/uL HEMOGLOBIN 16.4 13.2-17.1 g/dL HEMATOCRIT 49.2 38.5-50.0 % MCV 96.1 80.0-100.0 fL MCH 32.0 27.0-33.0 pg MCHC 33.3 32.0-36.0 g/dL For adults, a slight decrease in the calculated MCHC value (in the range of 30 to 32 g/dL) is most likely not clinically significant; however, it should be interpreted with caution in correlation with other red cell parameters and the patient's clinical condition. RDW 14.5 11.0-15.0 % PLATELET COUNT 250 140-400 Thousand/uL MPV 10.1 7.5-12.5 fL ABSOLUTE NEUTROPHILS 6061 5944-8704 cells/uL ABSOLUTE LYMPHOCYTES 9921 268-1451 cells/uL ABSOLUTE MONOCYTES 810 200-950 cells/uL ABSOLUTE EOSINOPHILS 71 15-500 cells/uL ABSOLUTE BASOPHILS 53 0-200 cells/uL NEUTROPHILS 68.1 LYMPHOCYTES 21.4 MONOCYTES 9.1 EOSINOPHILS 0.8 BASOPHILS 0.6 Reason For Referral No Information Medications Medication SIG (Take, Route, Frequency, Duration) Notes Start Date End Date Status Farxiga 10 MG 1 tab(s) orally once a day Active Clopidogrel Bisulfate 75 MG 1 tab(s) ora lly once a day Active Valtrex 1 GM 1 tablet Orally twic e a day; Duration: 10 days 08/08/2024 Active Spironolactone 25 MG 1/2 tab orally once a day Active Lidocaine 4 % 1 patch as needed Externally daily; Duration: 30 days 08/08/2024 Active Eliquis 2.5 MG 1 tab(s) orally 2 ti mes a day Active Levothyroxine Sodium 125 MCG 1 tab(s) or ally once a day; Duration: 90 Active Tamsulosin HCl 0.4 MG 1 cap(s) orally on ce a day; Duration: 90 Active Immunizations Vaccine Route Administration Date Status Comme nts Prevnar PCV-20 (Pneumococcal conjugate 20) IM Intramuscular 02/26/2022 Administered Fluzone High Dose IM Intramuscular 11/16/2023 Administered Arexvy IM Intramuscular 12/30/2023 Administered Problems Problem Type SNOMED Code ICD Code Onset Dates Problem Status W/U Status Risk Notes Problem Ischemic cardiomyopathy (835690699) Ischemic cardiomyopathy (I25.5) Active confirmed Problem Hesitancy of micturition (9145238) Hesitancy of micturition (R39.11) Active confirmed Problem Hyperlipidemia (10727443) Hyperlipemia, idiopathic familial (E78.5) Active confirmed Problem Gastroesophageal reflux disease (830117621) GERD without esophagitis (K21.9) Active confirmed Problem Essential hypertension (68256383) Hypertension, essential (I10) Active confirmed Problem Constipation by delayed colonic transit (25754370) 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) Active confirmed Problem Body mass index 30+ - obesity (395545315) BMI 30.0-30.9,adult (Z68.30) Active confirmed Problem Constipation (80816502) Constipation, unspecified constipation type (K59.00) Active confirmed Problem Atherosclerosis of coronary artery without angina pectoris (046637801777560) Atherosclerosis of [place] coronary artery of [place] heart without angina pectoris (I25.10) Active confirmed Problem Acquired hypothyroidism (410598261) Acquired hypothyroidism (E03.9) Active confirmed Problem Urinary hesitancy (1595316) Urinary hesitancy (R39.11) Active confirmed Problem Atrial fibrillation (51584502) Atrial fibrillation, unspecified type (I48.91) Active confirmed Problem Perennial allergic rhinitis (286506756) Perennial allergic rhinitis (J30.89) Active confirmed Problem Lower urinary tract symptoms due to benign prostatic hypertrophy (40017740378631) Benign prostatic hyperplasia with lower urinary tract symptoms (N40.1) Active confirmed Problem Paroxysmal atrial flutter (942645951) Paroxysmal atrial flutter (I48.92) Active confirmed Problem Acute systolic heart failure (422871432) Systolic CHF, acute (I50.21) Active confirmed Vital Signs Heart Rate 68 /min 08/08/2024 Temperature 98.4 degrees Fahrenheit 08/08/2024 Blood pressure diastolic 72 mm Hg 08/08/2024 Height 68.5 in 08/08/2024 Blood pressure systolic 118 mm Hg 08/08/2024 Weight 189 lbs 08/08/2024 BMI 28.32 kg/m2 08/08/2024 Encounters Encounter Location Date Provider Diagnosis Sweta Gurrola [facility] [address] [facility] [address] [place] [address] 05/13/2024 Provider Migration [address] [address] 09/28/2023 Merrillshiv Mendoza Hypertension, essent ial I10 ; Acquired hypothyroidism E03.9 ; Benign prostatic hyperplasia with lower urinary tract symptoms N40.1 ; Hyperlipemia, idiopathic familial E78.5 ; Paroxysmal atrial flutter I48.92 ; Atherosclerosis of [place] coronary artery of [place] heart without angina pectoris I25.10 ; Elevated PSA R97.20 and Routine medical exam Z00.00 Sweta Gurrola [facility] [address] [place] [address] [place], [place] [address] 10/25/2023 Merrill Reji Paroxysmal atrial flutter I48.92 ; Systolic CHF, acute I50.21 ; Other malaise R53.81 ; Other fatigue R53.83 and Hospital discharge follow-up Z09 Sweta Gurrola [facility] [address] [place], [place] [address] 11/01/2023 Merrillshiv Mendoza Atrial fibrillation, unspecified type I48.[address] [address] 11/16/2023 Merrillshiv Mendoza Immunization(s) administered Z23 ; Systolic CHF, acute I50.21 ; Atrial fibrillation, unspecified type I48.91 ; Sinus bradycardia R00.1 and Atherosclerosis of [place] coronary artery of [place] heart without angina pectoris I25.[address] [address] 12/30/2023 Merrillshiv Mendoza Atrial fibrillation, unspecified type I48.91 ; Ischemic cardiomyopathy I25.5 and Encounter for immunization Z23 [facility] [address] [address] 05/11/2024 Merrill Mendoza Benign prostatic hyperplasia with lower urinary tract symptoms N40.1 ; Hypertension, essential I10 and Systolic CHF, acute I50.21 [facility] [address] [address] 08/08/2024 Merrill Mendoza Herpes zoster with complication B02.8 [facility] [address] [place], [place] [address] 08/10/2024 Merrill Mendoza [facility] [address] [place] [address] 10/18/2023 Merrill Mendoza [facility] [address] [address] 08/09/2024 Merrill Mendoza Assessments Encounter Date Diagnosis (ICD Code) Assessment Notes Treatment Notes Treatment Clinical Notes Section Notes 09/28/2023 Hypertension, essential (ICD-10 - I10) -Chronic, well controlled -No changes to medications today 09/28/2023 Acquired hypothyroidism (ICD-10 - E03.9) -Clinically euthyroid -Will recheck TSH today 10/25/2023 Paroxysmal atrial flutter (ICD-10 - I48.92) Patient is scheduled to see cardiology on 11/01. He seems to be tolerating medications well aside from some fatigue and malaise. Dicussed with patient to cut his amiodarone in half to see if this improves fatigue. Will check TSH today to obtain baseline for amiodarone therapy monitoring. Follow up in 1 week. 10/25/2023 Systolic CHF, acute (ICD-10 - I50.21) Patient is scheduled to see cardiology on 11/01. Continue current medications. 11/01/2023 Atrial fibrillation, unspecified type (ICD-10 - I48.91) - diagnosed with afib at recent hospitalization, was thought to be the cause of heart failure, possibly tachycardic cardiomyopathy - was started on GDMT and put on amiodarone - last visit amiodarone was decreased given TSH elevation, fatigue, bradycardia and hypotension - today patient states he has been taking it easy over the past week, no syncopal events, chest pain. Does have BP log which shows bradycardia and low BP PLAN - sees cardiology tomorrow, 11/02/23 - decrease bisoprolol to 2.5 mg in am - follow up in 2 weeks 11/16/2023 Immunization(s) administered (ICD-10 - Z23) 11/16/2023 Systolic CHF, acute (ICD-10 - I50.21) - EF reportedly recovered to 50%. Likely tachyarrhythmia-m ediated given rapid improvement in EF with return to sinus rhythm, although he did have 3 stents placed for CAD. No longer has LifeVest. Continues to be bradycardic on bisoprolol despite lowering dose to 2.5mg which is likely contributing to his fatigue. - other GDMT includes: spironolactone, Entresto, Farxiga - follows with cardiology Plan - discontinue bisoprolol given bradycardia 12/30/2023 Ischemic cardiomyopathy (ICD-10 - I25.5) Patient has new onset a.fib that caused ischemic cardiomyopathy and is being managed by cardiology. At the time his a.fib was diagnosed, his EF was found to be 25%. Since controlling his a.fib, the cardiomyopathy has began to resolve itself and his EF is now >50%. Patient has been able to come off Entresto and to lower his dose of antihypertensives . Will reevaluate volume status at next visit 12/30/2023 Atrial fibrillation, unspecified type (ICD-10 - I48.91) Patient has new onset a.fib that is being managed by cardiology. He is on 200mg of amiodarone bid that seems to be controlling his a.fib. 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 Will discuss screening for thyroid dysfunction/chest x-ray if not done by cardiology at that point. 05/11/2024 Benign prostatic hyperplasia with lower urinary tract symptoms (ICD-10 - N40.1) symptoms well controlled on tamsulosin. 08/08/2024 Herpes zoster with complication (ICD-10 - B02.8) Discussed herpes zoster, etiology and expected course. Start antiviral as listed above. Gabapentin and lidocaine patches PRN for pain. Discussed s/s of dissemination and worsening condition that warrant FU. Advised that if symptoms do not improve or pain worsens can refer to pain management for further treatment 05/11/2024 Hypertension, essential (ICD-10 - I10) BP wnl. Will check labs today. 12/30/2023 Encounter for immunization (ICD-10 - Z23) 10/25/2023 Other malaise (ICD-10 - R53.81) Discussed with patient that his high amiodarone dose might be causing some bradycardia and fatigue. Cut amiodarone dose in half and take 1 tablet twice daily. Will also check labs today. Follow up in 1 week. 11/16/2023 Atrial fibrillation, unspecified type (ICD-10 - I48.91) - on amiodarone, managed by cardiology. In sinus rhythm today. - on Eliquis 2.5mg BID for AC 09/28/2023 Benign prostatic hyperplasia with lower urinary tract symptoms (ICD-10 - N40.1) -Chronic, stable symptoms -Continue flomax -Recheck PSA today 09/28/2023 Hyperlipemia, idiopathic familial (ICD-10 - E78.5) -Recheck lipid panel -Continue atorvastatin 11/16/2023 Sinus bradycardia (ICD-10 - R00.1) - HR 40s at home, consistent with office today. Having fatigue but otherwise feels OK. No syncope/presyncop e. Plan - discontinue bisoprolol 10/25/2023 Other fatigue (ICD-10 - R53.83) 05/11/2024 Systolic CHF, acute (ICD-10 - I50.21) 10/25/2023 Hospital discharge follow-up (ICD-10 - Z09) Reviewed H&P and discharge summary from hospital. Reconciled medications and adjusted amiodarone downward as noted above. 09/28/2023 Paroxysmal atrial flutter (ICD-10 - I48.92) -Chronic, asymptomatic, in sinus rhythm on exam -Continue metoprolol 11/16/2023 Atherosclerosis of [place] coronary artery of [place] heart without angina pectoris (ICD-10 - I25.10) - s/p PCI x3 in 10/2023. Currently on clopidogrel 75mg daily and Eliquis 2.5mg BID. Having bruising. Discussed importance of adherence despite bruising to prevent in-stent thrombosis. - managed by cardiology 09/28/2023 Atherosclerosis of [place] coronary artery of [place] heart without angina pectoris (ICD-10 - I25.10) -Stable, denies CP, SOA -Continue aspirin and statin 09/28/2023 Elevated PSA (ICD-10 - R97.20) 09/28/2023 Routine medical exam (ICD-10 - Z00.00) -Falls: none-ADLs: independent with all activities, continues to drive -HCS: has living will, POA paperwork. -Vision/dental: UTD on regular exams-Smoking/alc ohol: smokes cigar rarely; 1 glass of wine occasionally. -Depression screening: negative -Aged out of screenings-Vaccin es: UTD on PCV, Tdap, Shingrix. Will get flu shot at end of October. 05/11/2024 Other Multiple metabolic processes will be monitored with labs today. I have reviewed all labs personally. Plan Of Treatment Pending Test Test Name Order Date Holter Monitor : Event Recorder 09/02/19 19 INFLUENZA A&B 05/29/2011 M-Basic Metabolic Panel 08/01/2018 M-Hemoglobin A1C 09/19/2019 Future Test Test Name Order Date Comp. Metabolic Panel (14) 03/11/2022 TSH 03/11/2022 CBC With Differential/Platelet Lipid Panel 03/11/2022 Next Appt Details Provider Name:Merrill Jay Reji, 08/15/2024 11:30:00 AM, [address], [address], Provider Name:Merrill Jay Mendoza, 09/12/2024 10:00:00 AM, [address] [place] [address], [phone], Insurance Providers Payer Name Payer Address Payer Phone Subscriber Number Group Number Insured Name Patient Relationship to Insured Coverage Start Date Coverage End Date [employer] DUAL [address] [address] [place] [address] [id number] Dioni Vanessa Self - patient is the insured Medical (General) History Medical History History ICD Code HTN HLD acquired hypothyroidism BPH A fib Surgical History Surgery Date(Month/Year) cardiac stents x2 1997 cataract (right, left was done several y ears ago) 2019 eye injections for macular degeneration Heart Cath 10/14/23 Hospitalization History Reason Date(Month/Year) cardiac 08/2018 above [facility]- Elevated HR 09/2023
--- NOTE | 2024-08-11 12:56 | [facility].EDGENADL ---
Discharge Plan Disposition Patient Disposition: Home, Self-Care Prescriptions Prescriptions: No Action Eliquis 5 mg tablet 2.5 mg PO BID Qty: 60 5RF clopidogrel 75 mg tablet 75 mg PO DAILY Qty: 90 3RF dapagliflozin propanediol [Farxiga] 10 mg tablet 10 mg PO DAILY Qty: 90 3RF spironolactone 25 mg tablet 12.5 mg PO DAILY Qty: 90 3RF tamsulosin 0.4 MG capsule 0.4 mg PO HS valacyclovir 1 gram tablet 1,000 mg PO BID atorvastatin 80 mg tablet 80 mg PO HS hydrocodone-acetaminophen 5-325 mg Tablet 1 tab PO Q4HP PRN (Reason: Mild To Moderate Pain (1-6)) 3 Days Qty: 15 0RF levothyroxine 125 mcg tablet 125 mcg PO DAILY Patient Comments: TAKE 1 TABLET BY MOUTH EVERY DAY Referrals Follow up/Referrals: Merrill Mendoza MD [Primary Care Provider, Internal Medicine] - See instructions Activity Restrictions/Add. Instructions Additional Instructions/Restrictions: I talked to Dr. Mccray about your wound, although there was a little bit of blood this is expected. He now wants you to leave it open to air and for oozing blot it with the gauze supplied to you. He wants you to follow-up in his clinic Wednesday morning just show up to clinic and tell him that he wanted you seen. Clinical Impressions Clinical Impression: Surgical wound present, Bleeding Print Language Print Language: Nigerian Discharge ED Provider: Darin Wen General Adult HPI General Stated complaint: Pacemaker Bandage full of Blood Time Seen by Provider: 08/11/24 12:43 History of Present Illness HPI narrative: Patient is a 88-year-old male with past medical history of recent pacemaker placement presents emergency department for evaluation of the surgical site. He noticed this morning that there was a pocket of air under his Tegaderm as well as a little bit of blood causing him to become concerned and present here for continued evaluation. No other acute complaints at this time. Please note that above description of symptoms, in this electronic medical record under categorization of recalled from ER triage doctor by RN are reflective of an initial nursing assessment, however, is not reflective of my full history and physical exam that was personally taken and clarified. Consequentially, this preceding description of symptoms, which may include the patient's categorized chief complaint in the EMR, do not reflect my personal clinical impression, and the ultimate description of history of present illness and patient stated complaints should be deferred to this section of the note. Unless stated otherwise or congruent with this section of the note, additional signs, symptoms, or incongruence should be interpreted as inaccurate with my clinical impression. Related Data Home Medications ?Medication ?Instructions ?Recorded ?Confirmed tamsulosin 0.4 mg capsule 0.4 mg PO HS 09/01/18 08/11/24 levothyroxine 125 mcg tablet 125 mcg PO DAILY 10/14/23 08/11/24 valacyclovir 1 gram tablet 1,000 mg PO BID 08/09/24 08/11/24 atorvastatin 80 mg tablet 80 mg PO HS 08/10/24 08/11/24 Previous Rx's ?Medication ?Instructions ?Recorded apixaban 5 mg tablet (Eliquis) 2.5 mg (1/2 x 5 mg) PO BID #60 tabs 11/02/23 clopidogrel 75 mg tablet 75 mg PO DAILY #90 tabs 11/02/23 dapagliflozin propanediol 10 mg 10 mg PO DAILY #90 tabs 11/02/23 tablet (Farxiga) spironolactone 25 mg tablet 12.5 mg (1/2 x 25 mg) PO DAILY #90 11/02/23 tabs hydrocodone 5 mg-acetaminophen 325 1 tab PO Q4HP PRN Mild To Moderate 08/10/24 mg tablet Pain (1-6) 3 days #15 tabs Allergies Allergy/AdvReac Type Severity Reaction Status Date / Time No Known Allergies Allergy Verified 07/17/24 13:20 [facility] Disclaimer: The information contained in this section may have been updated after the patient was seen, as this information can be updated by other users. Medical History (Updated 08/11/24 @ 12:55 by Darin Wen MD) Presence of combination internal cardiac defibrillator (ICD) and pacemaker HLD (hyperlipidemia) Macular degeneration Cataract History of BPH Atrial flutter Afib Hypothyroid CAD (coronary artery disease) HTN (hypertension) Surgical History H/O heart artery stent Family History Father Family history of myocardial infarction Mother Aneurysm Social History Smoking Status: Former smoker second hand exposure: No alcohol intake: current alcohol intake frequency: holidays/special occasions only substance use type: denies use current occupational status: retired Travel in the last 8 weeks?: Inside the [place] household members: spouse housing: house caffeine: No Have you lived/traveled outside [place] in past 30 days?: No Contact w/someone who lives/traveled outside [place] past 30 days?: No Exposure to someone with infectious disease in past 14 days?: No Do you have a fever (greater than 100.4 F or 38 C)?: No Have you tested positive for COVID-19?: No Exposed to someone with COVID-19 in past 14 days?: No Do you have a sore throat?: No Do you have a cough?: No Do you have any weakness?: No Do you have any diarrhea?: No Are you experiencing any unusual bleeding?: No Do you have any muscle aches/pain?: No Do you have any abdominal pain?: No Are you experiencing loss of taste or smell?: No Other Medical History Have you received the Flu Vaccine for this season: No Have you received the Pneumonia Vaccine: No ROS Obtained: Yes Systems reviewed as appropriate & no additional complaints except as documented Physical Exam General General appearance: alert and in no apparent distress Head Head exam: atraumatic and normocephalic Eye Eye exam: Present PERRL and EOMI ENT ENT exam: Present mucous membranes moist Neck Neck exam: Present normal inspection Chest Chest inspection: Present symmetric chest wall rise and other (After Tegaderm was removed staple line is largely hemostatic with a little bit of oozing from the medial aspect no hemorrhage. No significant fluctuance.) Respiratory Respiratory exam: Present normal lung sounds bilaterally; Absent respiratory distress Cardiovascular Cardiovascular exam: Present regular rate, normal rhythm and other Abdominal Exam Abdominal exam: Present soft Extremities Exam Extremities exam: Present normal inspection Neurological Exam Neurological exam: Present alert Psychiatric Psychiatric exam: Present normal affect Skin Skin exam: Present warm and dry Medical Decision Making Medical Records Screening: Per USPSTF and CDC recommendations, given the prevalence of disease in our region, it is our hospital?s policy to screen for HIV and viral Hepatitis for all patients aged 18 and over and those with ongoing risk factors. Adriel Inquiry Pt receiving controlled substance: No Orders (Tests/Meds): ORDERS Category Date Time Status CXR --portable [XR chest portable] Stat Exams 08/11/24 12:44 Stop Req POCUS Point of Care (ER Only) Stat Exams 08/11/24 12:44 Ordered Medical Decision Narrative: In summary patient is 88-year-old male with past medical history described above who presents emergency department for evaluation of pacemaker wound evaluation. Patient is hemodynamically stable nontoxic-appearing arrival, afebrile. [id number] ultrasound performed at bedside shows no large pocket of fluid. I discussed case with Dr. Mccray and dressing was removed. This is expected and he now wants it to heal to air with blotting it with 4 x 4's. Patient will follow-up in clinic Wednesday morning. Given that there is no significant hemorrhage I agree that this plan is reasonable. Patient was given return precautions. Critical Care Critical Care Time Critical Care Time: No
[2024-08-11 13:02] VITALS: BP 115/75; PULSE 72; RESP 16; TEMP 36.6; O2SAT 98
== END 2024-08-11 13:19 | disposition home or self-care (01) ==
PROVIDERS: Emergency Provider Emergency Medicine; PCP Internal Medicine Adolescent Medicine
DX: L76.22 Postprocedural hemorrhage of skin and subcutaneous tissue following other procedure (principal); Z95.0 Presence of cardiac pacemaker
CPT/HCPCS: 99283